=== PATIENT | female | born 1990 | race Two or more races ===

== ENCOUNTER 2025-06-06 20:39 | Inpatient (IN) | payer OTHER ==
[~2025-06-06] VITALS: Ht 167.6 cm; Wt 83.8 kg
--- NOTE | 2025-06-06 20:59 | ED.PDOC ---
HPI Comments 34 y.o female presents to the ED for a chief complaint of left sided chest/breast pain radiating to her left arm associated with SOB, lower extremity swelling, and a nonproductive cough x 1 day. Patient reports pain is constant with no alleviating factors. Patient ran out of her Lasix one week ago. Patient denies any nausea, vomiting, fever, chills, or back pain. Patient reports tobacco and marijuana use. 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 Family History Family History: Family hx of HTN Social History Smoker: Cigarettes Alcohol: Denies ETOH Use Drugs: Marijuana Lives In: Home Constitutional: denies: chills, diaphoresis, fatigue, fever, malaise, sweats, weakness, others EENTM: denies: blurred vision, double vision, ear bleeding, ear discharge, ear drainage, ear pain, ear ringing, eye pain, eye redness, hearing loss, mouth pain, mouth swelling, nasal discharge, nose bleeding, nose congestion, nose pain, photophobia, tearing, throat pain, throat swelling, voice changes, others Respiratory: reports: shortness of breath; denies: cough, hemoptysis, orthopnea, SOB at rest, SOB with excertion, stridor, wheezing, others Cardiovascular: reports: chest pain, left arm pain; denies: dizzy spells, diaphoresis, Dyspnea on exertion, edema, irregular heart beat, lightheadedness, palpitations, PND, syncope, others Gastrointestinal: denies: abdomen distended, abdominal pain, blood streaked bowels, constipated, diarrhea, dysphagia, difficulty swallowing, hematemesis, melena, nausea, poor appetite, poor fluid intake, rectal bleeding, rectal pain, vomiting, others Genitourinary: denies: abnormal vagina bleeding, burning, dyspareunia, dysuria, flank pain, frequency, hematuria, incontinence, pain, , vagina discharge, urgency, others Neurological: denies: dizziness, fainting, headache, left sided numbness, left sided weakness, numbness, paresthesia, pre-existing deficit, right sided numbness, right sided weakness, seizure, speech problems, tingling, tremors, weakness, others Musculoskeletal: reports: others (leg swelling ); denies: back pain, gout, joint pain, joint swelling, muscle pain, muscle stiffness, neck pain Integumetry: denies: bruises, change in color, change in hair/nails, dryness, laceration, lesions, lumps, rash, wounds, others Allergic/Immunocompromised: denies: Difficulty Healing, Frequent Infections, Hives, Itching, others Hematologic/Lymphatic: denies: anemia, blood clots, easy bleeding, easy bruising, swollen glands, others Endocrine: denies: excessive hunger, excessive sweating, excessive thirst, excessive urination, flushing, intolerance to cold, intolerance to heat, unexplained weight gain, unexplained weight loss, others Psychiatric: denies: anxiety, bipolar disorder, depression, hopeless, panic disorder, schizophrenia, sleepless, suicidal, others All Other Systems: Reviewed and Negative Physical Exam General Appearance: Moderate Distress HEENT: Normal ENT Inspection, Pharynx Normal, TMs Normal Neck: Full Range of Motion, Non-Tender, Normal, Normal Inspection Respiratory: Chest Non-Tender, Lungs Clear, No Accessory Muscle Use, Normal Breath Sounds, Respiratory Distress Cardiovascular: No Edema, No JVD, No Murmur, No Gallop, Normal Peripheral Pulses, Regular Rate/Rhythm Breast Exam: Deferred Gastrointestinal: No Organomegaly, Non Tender, No Pulsatile Mass, Normal Bowel Sounds, Soft Genitalia: Deferred Pelvic: Deferred Rectal: Deferred Extremities: No calf tenderness, Normal capillary refill, Pedal edema Musculoskeletal : Apperance: Normal Neurologic: Alert, shuttler car II-XII nml as Tested, Motor Weakness, Normal Affect, Normal Mood, No Sensory Deficits Cerebellar Function: Normal Reflexes: Normal Skin: Dry, Normal Color, Warm Lymphatic: No Adenopathy Was a procedure done? Was a procedure done?: No CP Differential Dx Differential Diagnosis: N/A Differential Diagnosis: Angina, Chest Wall Pain, Costochondritis, Myocardial Infarction, Pericarditis X-Ray, Labs, Meds, VS Vital Signs Date Time Temp Pulse Resp B/P (MAP) Pulse Ox O2 Delivery O2 Flow Rate FiO2 06/06/25 21:06 100.9 06/06/25 20:47 125 06/06/25 20:45 100.9 125 20 104/75 (85) 98 100.9 Lab Test 06/06/25 21:07 06/06/25 20:46 Range/Units Urine Color Pending Urine Clarity Pending Urine pH Pending Urine Specific [place] Pending Urine Protein Pending Urine Ketones Pending Urine Blood Pending Urine Nitrite Pending Urine Bilirubin Pending Urine Urobilinogen Pending Urine Leukocyte Esterase Pending Urine RBC Pending Urine Microscopic WBC Pending Urine Squamous Epithelial Cells Pending Urine Bacteria Pending Urine Glucose Pending White Blood Count 7.6 4.4-10.8 10^3/uL Red Blood Count 4.53 4.0-5.20 10^6/uL Hemoglobin 12.3 12.2-16.2 g/dL Hematocrit 36.5 36.0-46.0 % Mean Corpuscular Volume 80.6 80.0-100.0 fL Mean Corpuscular Hemoglobin 27.1 L 28.0-32.0 pg Mean Corpuscular Hemoglobin Concent 33.7 32.0-36.0 g/dL Red Cell Distribution Width 15.8 H 11.8-14.3 % Platelet Count 385 140-450 10^3/uL Mean Platelet Volume 7.8 6.9-10.8 fL Neutrophils (%) (Auto) 74.8 37.0-80.0 % Lymphocytes (%) (Auto) 14.9 10.0-50.0 % Monocytes (%) (Auto) 8.5 0.0-12.0 % Eosinophils (%) (Auto) 1.1 0.0-7.0 % Basophils (%) (Auto) 0.7 0.0-2.0 % Neutrophils # (Auto) 5.7 1.6-8.6 10 ^3/uL Lymphocytes # (Auto) 1.1 0.4-5.4 10 ^3/uL Monocytes # (Auto) 0.7 0-1.3 10 ^3/uL Eosinophils # (Auto) 0.1 0-0.8 10 ^3/uL Basophils # (Auto) 0.1 0-0.2 10 ^3/uL Nucleated Red Blood Cells 0.0 % D-Dimer, Quantitative 1.84 H 0.0-0.49 mg/L FEU Sodium Level 136 136-145 mmol/L Potassium Level 4.1 3.5-5.1 mmol/L Chloride Level 103 98-107 mmol/L Carbon Dioxide Level 24 20-31 mmol/L Anion Gap 9 5-15 Blood Urea Nitrogen 12 9-23 mg/dL Creatinine 0.95 0.550-1.02 mg/dL Glomerular Filtration Rate Calc 81 >90 mL/min BUN/Creatinine Ratio 12.6 10.0-20.0 Serum Glucose 98 74-106 mg/dL Calcium Level 9.6 8.7-10.4 mg/dL Troponin I High Sensitivity 6 </=34 ng/L B-Type Natriuretic Peptide 695.73 0-100 pg/mL Current Medications Medications (Trade) Dose Ordered Sig/Topher Route Start Time Stop Time Status Last Admin Acetaminophen (Tylenol Tablet Or Capsule) 650 mg ONCE ONCE PO 06/06/25 21:00 06/06/25 21:02 DC 06/06/25 21:06 The chest x-ray shows: No sign of any acute infiltrates or pneumothorax. There is some mild cardiomegaly but no sign of any CHF The BNP is elevated at 695.73 The D-dimer is 1.84 The patient's CBC is within normal limits The chemistry panel is within normal limits The patient was given acetaminophen 650 mg by mouth for a temperature of 100.9 We did order a CAT scan of the chest to rule out PE secondary to the fact that the D-dimer is elevated and the patient was complaining of shortness a breath as well as some palpitations The patient is being admitted at this time The patient will be signed out to Dr. Jean Images Reviewed?: Images reviewed and evaluated by me Time of 1ST Reevaluation: 21:30 Reevaluation 1ST: Unchanged Patient Education/Counseling: Diagnosis, Treatment, Prognosis Family Education/Counseling: No Family Present SEPSIS Sepsis Screen Physician Orders Electrocardigram (06/06/25 20:43) Electrocardigram (06/06/25 21:43) Electrocardigram (06/06/25 23:43) Troponin-I Hs (06/06/25 21:43) Troponin-I Hs (06/06/25 23:43) Heplock Iv (06/06/25 20:53) Chemistry Laboratory Technician (06/06/25 20:53) Blood Pressure (06/06/25 20:53) Pulse Oximetry (06/06/25 20:53) Chest Two Views Routine (06/06/25 20:53) Urinalysis (06/06/25 20:53) Ct Angio Chest Contrast (06/06/25 21:33) Vital Signs Date Time Temp Pulse Resp B/P (MAP) Pulse Ox O2 Delivery O2 Flow Rate FiO2 06/06/25 21:06 100.9 06/06/25 20:47 125 06/06/25 20:45 100.9 125 20 104/75 (85) 98 100.9 Laboratory Tests Test 06/06/25 20:46 White Blood Count 7.6 10^3/uL (4.4-10.8) Medications Medications Dose Ordered Sig/Topher Route Start Time Stop Time Status Last Admin Dose Admin Acetaminophen 650 mg ONCE ONCE PO 06/06/25 21:00 06/06/25 21:02 DC 06/06/25 21:06 Departure 1 Departure Time of Disposition: 21:38 Impression: Primary Impression: Acute dyspnea Additional Impressions: Elevated d-dimer Diastolic heart failure Qualified Codes: I50.33 - Acute on chronic diastolic (congestive) heart failure Disposition: 09 ADMITTED INPATIENT Admit to: Tele Condition: Fair Critical Care Note Critical Care Time?: Yes (45 min-critical care time only) Stability Stability form required: Yes Unstable for transfer: Telemetry monitoring (Telemetry monitoring required), ED Physician Assesment (Clinical assesment) Heart Score Heart Score: Heart Score Response (Comments) Value History Moderate Suspicious 1 EKG Repolarization Disturb 1 Age <45 0 Risk Factors >3 or Hx ASHD 2 Troponin Normal limit 0 Total 4 I personally scribed for NIKITA PEREZ MD ([email or web address]) on 06/06/25 at 20:59. E lectronically submitted by Emma Patel ([facility]). NIKITA PEREZ MD Jun 06, 2025 20:59
[2025-06-06 21:04] LABS: Hematocrit 36.5 % (36.0-46.0); Hemoglobin 12.3 g/dL (12.2-16.2); Mean Corpuscular Hemoglobin 27.1 pg (28.0-32.0); Mean Corpuscular Volume 80.6 fL (80.0-100.0); Nucleated Red Blood Cells % 0.0 %
[2025-06-06] MEDS: ACETAMINOPHEN 500 MG TAB or CAP PO ONE (21:06)
[2025-06-06 21:12] LABS: Chloride 103 mmol/L (98-107); Potassium 4.1 mmol/L (3.5-5.1)
[2025-06-06 21:13] LABS: Anion Gap 9 (5-15); Carbon Dioxide 24 mmol/L (20-31)
[2025-06-06 21:14] LABS: Calcium 9.6 mg/dL (8.7-10.4)
[2025-06-06 21:18] LABS: Sodium 136 mmol/L (136-145)
[2025-06-06 21:19] LABS: BUN/Creatinine Ratio 12.6 (10.0-20.0); Blood Urea Nitrogen 12 mg/dL (9-23); Glucose 98 mg/dL (74-106)
--- NOTE | 2025-06-06 21:32 | DVH ---
CHEST RADIOGRAPH Indication: CP Technique: Frontal and lateral view of the chest was obtained Comparison: None FINDINGS/IMPRESSION: There is enlargement of the cardiomediastinal silhouette with prominence of the perihilar spaces. The lungs are clear. No pleural effusion or pneumothorax. No acute osseous abnormality.
[2025-06-06 22:02] LABS: Urine Protein, UAD 1+ (Negative)
[2025-06-06] MEDS: IOHEXOL 300 MG/ML 100ML BOTTLE IJ ONE (22:17)
[2025-06-06] MEDS: FUROSEMIDE 40 MG/4 ML VIAL IV ONE (22:47)
--- NOTE | 2025-06-06 22:49 | DVH ---
CTA Chest with intravenous contrast INDICATION: sob/cp COMPARISON: None TECHNIQUE: Multidetector spiral CTA of the chest was performed of the chest with intravenous contrast . PULMONARY ANGIOGRAPHY PROTOCOL was utilized using a bolus-tracking technique centered on the main p ulmonary artery. Axial, coronal and sagittal multiplanar and MIP reformats were performed. Radiation Dose : 1. Chest: CTDI volume is 5.92 mGy. Dose-length product is 750.22 mGy*cm The dose indicators for CT are the volume Computed Tomography (CT) Dose Index (CTDIvol) and the Dose Length Product (DLP), and are measured in units of mGy and mGy-cm, respectively. These indicators are not patient dose, but values generated from the CT scanner acquisition factors. The report includes radiation exposure data for exposures received during this examination. Findings: Pulmonary artery: No pulmonary embolism. The main pulmonary artery measures 2.9 cm in the ascending thoracic aorta measures 2.6 cm. Lower neck: Normal thyroid. Lungs: No focal consolidation, pleural effusion or pneumothorax. Pleural-based nodular density within the right lower lobe measuring 1.3 cm (series 3, image 45). Partial collapse of the right middle lob e with associated atelectasis. Heart/Vascular Structures: The heart is enlarged and there is small to moderate pericardial effusion. Lymph Nodes: Diffuse confluent lymphadenopathy is noted throughout the mediastinum and bilateral mark r regions. Musculoskeletal: No acute osseous abnormality. Soft tissues: Normal. Upper abdomen: Limited portions of the upper abdomen are unremarkable status post cholecystectomy. IMPRESSION: 1. No pulmonary embolism. 2. Diffuse confluence mediastinal and bilateral hilar lymphadenopathy. 3. Cardiomegaly and small to moderate pericardial effusion. 4. Right lower lobe pleural-based pulmonary nodule and partial collapse of the right middle lobe with associated atelectasis.
[2025-06-06 22:52] VITALS: PULSE 106; O2SAT 98
[2025-06-06] MEDS: ACETAMINOPHEN 325 MG TAB PO ONE (23:53)
[2025-06-06] MEDS: SODIUM CHLORIDE 0.9% 1,800 ML IV ONE (23:53)
[2025-06-06] MEDS: VANCOMYCIN 1GM/200ML PM 200 ML IV ONE (23:53)
[2025-06-06] MEDS: cefTRIAXone 1GM/50ML D5W 50 ML IV ONE (23:59)
[2025-06-07] VITALS (14 sets, daily range): BP systolic 98–155; BP diastolic 47–73; PULSE 57–119; RESP 16–24; TEMP 97.8–99; O2SAT 94–100
[2025-06-07] MEDS ORDERED: ACETAMINOPHEN 325 MG TAB PO PRN (00:30)
--- NOTE | 2025-06-07 00:39 | DVHHP2 ---
History of Present Illness Reason for Visit: Shortness of breath History of Present Illness 34-year-old female presents for evaluation of shortness for breath. Patient reports a two day history of worsening shortness for breath with associated left-sided pressure-like chest pain with a nonproductive cough. No fever or chills. Patient reports running out of her Lasix a week ago. Past Medical History Acute on chronic respiratory failure Acute on chronic heart failure Hypertension Plan Admit the patient to Med surge to the hospitalist IV Lasix Resume home medications Echocardiogram pending Continue treatment per orders. Past Surgical History , cholecystectomy Family History Noncontributory Smoke: <1 pack per day ALCOHOL: occassional Drugs: Marijuana Review of Systems Review of Systems Review of systems are currently negative otherwise addressed in HPI. Allergies: Coded Allergies: NO KNOWN ALLERGIES (Unverified , 06/06/25) Exam Vital Signs Vital Signs Date Time Temp Pulse Resp B/P (MAP) Pulse Ox O2 Delivery O2 Flow Rate FiO2 06/06/25 23:35 98.7 107 16 110/73 (85) 99 98.7 06/06/25 22:52 Room Air* 0 21 Exam Gen: 34-year-old female in mild distress, obese Skin: Warm, dry, normal color and texture, no rash. HEENT: Normocephalic atraumatic, mucous membranes moist and pink. Neck: Cervical and supraclavicular nodes normal without enlargement, trachea is midline, thyroid gland is normal without masses. Pulmonary: Clear to auscultation and percussion bilaterally. Cardiac: Regular rate and rhythm. No murmur Abdomen: Soft, nontender, nondistended, bowel sounds present all 4 quadrants, no guarding, no rigidity, no organomegaly. Extremities: No cyanosis, clubbing, no edema Neuro: Cranial nerves II through XII grossly intact, normal affect and speech, no focal motor deficits. Labs/Xrays ORDERING PHYSICIAN: NIKITA PEREZ MD PROCEDURE(s): CXR2 - CHEST TWO VIEWS ROUTINE REASON: CP ORDER NUMBER(s): [id number], ACCESSION NUMBER(s): [id number] CHEST RADIOGRAPH Indication: CP Technique: Frontal and lateral view of the chest was obtained Comparison: None FINDINGS/IMPRESSION: There is enlargement of the cardiomediastinal silhouette with prominence of the perihilar spaces. The lungs are clear. No pleural effusion or pneumothorax. No acute osseous abnormality. RING PHYSICIAN: NIKITA PEREZ MD PROCEDURE(s): CTACH - CT ANGIO CHEST CONTRAST REASON: sob/cp ORDER NUMBER(s): [id number], ACCESSION NUMBER(s): [id number] CTA Chest with intravenous contrast INDICATION: sob/cp COMPARISON: None TECHNIQUE: Multidetector spiral CTA of the chest was performed of the chest with intravenous contrast. PULMONARY ANGIOGRAPHY PROTOCOL was utilized using a bolus- tracking technique centered on the main pulmonary artery. Axial, coronal and sag ittal multiplanar and MIP reformats were performed. Radiation Dose : 1. Chest: CTDI volume is 5.92 mGy. Dose-length product is 750.22 mGy*cm The dose indicators for CT are the volume Computed Tomography (CT) Dose Index (CTDIvol) and the Dose Length Product (DLP), and are measured in units of mGy and mGy-cm, respectively. These indicators are not patient dose, but values generated from the CT scanner acquisition factors. The report includes radiation exposure data for exposures received during this examination. Findings: Pulmonary artery: No pulmonary embolism. The main pulmonary artery measures 2.9 cm in the ascending thoracic aorta measures 2.6 cm. Lower neck: Normal thyroid. Lungs: No focal consolidation, pleural effusion or pneumothorax. Pleural-based nodular density within the right lower lobe measuring 1.3 cm (series 3, image 45). Partial collapse of the right middle lobe with associated atelectasis. Heart/Vascular Structures: The heart is enlarged and there is small to moderate pericardial effusion. Lymph Nodes: Diffuse confluent lymphadenopathy is noted throughout the mediastinum and bilateral hilar regions. Musculoskeletal: No acute osseous abnormality. Soft tissues: Normal. Upper abdomen: Limited portions of the upper abdomen are unremarkable status post cholecystectomy. IMPRESSION: 1. No pulmonary embolism. 2. Diffuse confluence mediastinal and bilateral hilar lymphadenopathy. 3. Cardiomegaly and small to moderate pericardial effusion. 4. Right lower lobe pleural-based pulmonary nodule and partial collapse of the right middle lobe with associated atelectasis. Labs Test 06/06/25 23:48 06/06/25 21:07 06/06/25 20:46 Range/Units Troponin I High Sensitivity 8 </=34 ng/L Urine Color Yellow Yellow Urine Clarity Turbid H Clear Urine pH 5.5 5.0-9.0 Urine Specific [place] 1.037 H 1.001-1.035 Urine Protein 1+ H Negative Urine Ketones Trace Negative Urine Blood Negative Negative /uL Urine Nitrite Negative Negative Urine Bilirubin Negative Negative Urine Urobilinogen 12 H Negative mg/dL Urine Leukocyte Esterase Negative Negative /uL Urine RBC 3 0 - 4 /hpf Urine Microscopic WBC 3 0-5 /HPF Urine Squamous Epithelial Cells Few <5 /hpf Urine Bacteria None seen None Seen /hpf Urine Hyaline Casts Few 0 - 2 /lpf Urine Mucus Few None Seen Urine Glucose Normal Normal mg/dL White Blood Count 7.6 4.4-10.8 10^3/uL Red Blood Count 4.53 4.0-5.20 10^6/uL Hemoglobin 12.3 12.2-16.2 g/dL Hematocrit 36.5 36.0-46.0 % Mean Corpuscular Volume 80.6 80.0-100.0 fL Mean Corpuscular Hemoglobin 27.1 L 28.0-32.0 pg Mean Corpuscular Hemoglobin Concent 33.7 32.0-36.0 g/dL Red Cell Distribution Width 15.8 H 11.8-14.3 % Platelet Count 385 140-450 10^3/uL Mean Platelet Volume 7.8 6.9-10.8 fL Neutrophils (%) (Auto) 74.8 37.0-80.0 % Lymphocytes (%) (Auto) 14.9 10.0-50.0 % Monocytes (%) (Auto) 8.5 0.0-12.0 % Eosinophils (%) (Auto) 1.1 0.0-7.0 % Basophils (%) (Auto) 0.7 0.0-2.0 % Neutrophils # (Auto) 5.7 1.6-8.6 10 ^3/uL Lymphocytes # (Auto) 1.1 0.4-5.4 10 ^3/uL Monocytes # (Auto) 0.7 0-1.3 10 ^3/uL Eosinophils # (Auto) 0.1 0-0.8 10 ^3/uL Basophils # (Auto) 0.1 0-0.2 10 ^3/uL Nucleated Red Blood Cells 0.0 % D-Dimer, Quantitative 1.84 H 0.0-0.49 mg/L FEU Sodium Level 136 136-145 mmol/L Potassium Level 4.1 3.5-5.1 mmol/L Chloride Level 103 98-107 mmol/L Carbon Dioxide Level 24 20-31 mmol/L Anion Gap 9 5-15 Blood Urea Nitrogen 12 9-23 mg/dL Creatinine 0.95 0.550-1.02 mg/dL Glomerular Filtration Rate Calc 81 >90 mL/min BUN/Creatinine Ratio 12.6 10.0-20.0 Serum Glucose 98 74-106 mg/dL Calcium Level 9.6 8.7-10.4 mg/dL B-Type Natriuretic Peptide 695.73 0-100 pg/mL SEPSIS Sepsis Screen Date sepsis recognized/suspect: Jun 06, 2025 Time Sepsis recognized/suspect: 2253 Recent Procedure: No On Antibiotic Therapy: No Respiratory Rate >20: No Heart Rate >90: Yes Temp<36 C (96.8 F) or >38.3 C: No SBP <90 or MAP <65 mmHG: No New Acute Mental Status Change: No Is the patient on CPAP, BIPAP,: No Physician Orders Electrocardigram (06/06/25 20:43) Electrocardigram (06/06/25 21:43) Electrocardigram (06/06/25 23:43) Heplock Iv (06/06/25 20:53) State Fire Marshal (06/06/25 20:53) Blood Pressure (06/06/25 20:53) Pulse Oximetry (06/06/25 20:53) Chest Two Views Routine (06/06/25 20:53) Ct Angio Chest Contrast (06/06/25 21:33) Blood Culture (06/06/25 23:47) Albuterol Medneb (Ventolin Medneb) (06/07/25 00:30) Furosemide Injection (Lasix Injection) (06/07/25 06:00) Carvedilol Tablet (Coreg Tablet) (06/07/25 10:00) Spironolactone (Aldactone) (06/07/25 10:00) Empagliflozin (Jardiance) (06/07/25 10:00) Lisinopril Tablet (Zestril Tablet) (06/07/25 10:00) Aspirin Tablet (06/07/25 10:00) Basic Metabolic Panel (06/08/25 04:00) Admit (06/07/25 00:29) Ondansetron Hcl (Zofran) (06/07/25 00:30) Cardiac Diet-2gna,Lofat,Lochol (06/07/25 Breakfast) Echo 2d Mode Cardiac Dop (06/07/25 00:29) Condition: Stable (06/07/25 00:29) Acetaminophen Tablet (Tylenol Tablet) (06/07/25 00:30) Bedrest With Bathroom Privileg (06/07/25 00:29) Vital Signs Date Time Temp Pulse Resp B/P (MAP) Pulse Ox O2 Delivery O2 Flow Rate FiO2 06/06/25 23:35 98.7 107 16 110/73 (85) 99 98.7 06/06/25 22:52 106 98 Room Air* 0 21 06/06/25 22:47 105/65 06/06/25 22:38 99.0 109 16 105/65 (78) 95 99.0 06/06/25 21:45 117 06/06/25 21:06 100.9 06/06/25 20:47 125 06/06/25 20:45 100.9 125 20 104/75 (85) 98 100.9 Laboratory Tests Test 06/06/25 20:46 White Blood Count 7.6 10^3/uL (4.4-10.8) Medications Medications Dose Ordered Sig/Topher Route Start Time Stop Time Status Last Admin Dose Admin Acetaminophen 650 mg ONCE ONCE PO 06/06/25 21:00 06/06/25 21:02 DC 06/06/25 21:06 650 MG Acetaminophen 1,000 mg ONCE ONCE PO 06/07/25 00:00 06/07/25 00:01 DC 06/06/25 23:53 1,000 MG Aspirin 162 mg ONCE ONCE PO 06/06/25 21:00 06/06/25 21:01 DC 06/06/25 22:47 162 MG Furosemide 40 mg ONCE ONCE IV 06/06/25 21:00 06/06/25 21:01 DC 06/06/25 22:47 40 MG Assessment/Plan Assessment/Plan Acute on chronic respiratory failure Acute on chronic heart failure Hypertension Plan Admit the patient to Med surge to the hospitalist JUDSON Smith Resume home medications Echocardiogram pending Continue treatment per orders. Plan discussed with: Patient My Orders Orders - SAUL HERRERA Procedure Category Date Status Time Albuterol Medneb PHA 06/07/25 Verified (Ventolin Medneb) 00:30 Furosemide Injection PHA 06/07/25 Verified (Lasix Injection) 06:00 Carvedilol Tablet PHA 06/07/25 Verified (Coreg Tablet) 10:00 Spironolactone PHA 06/07/25 Verified (Aldactone) 10:00 Empagliflozin PHA 06/07/25 Verified (Jardiance) 10:00 Lisinopril Tablet PHA 06/07/25 Verified (Zestril Tablet) 10:00 Aspirin Tablet PHA 06/07/25 Verified 10:00 Basic Metabolic Panel LAB 06/08/25 Verified 04:00 Admit ADMIT 06/07/25 Verified 00:29 Ondansetron Hcl PHA 06/07/25 Verified (Zofran) 00:30 Cardiac DIET 06/07/25 Verified Diet-2gna,Lofat,Lochol Breakfast Echo 2d Mode Cardiac US 06/07/25 Verified DOP 00:29 Condition: Stable VÍCTOR 06/07/25 Verified 00:29 Acetaminophen Tablet PHA 06/07/25 Verified (Tylenol Tablet) 00:30 Bedrest With Bathroom VÍCTOR 06/07/25 Verified Privileg 00:29 Date of Service: Jun 07, 2025 Billing Provider: SAUL HERRERA Common Visit Codes: [id number] INP/OBS CARE (HIGH) SAUL HERRERA Jun 07, 2025 00:39
[2025-06-07] MEDS: ALBUTEROL SULF 2.5 MG/0.5ML(0.5%) NEB SOLN NEB PRN (04:21)
--- NOTE | 2025-06-07 04:34 | ECG ---
[facility] Test Date: 2025-06-06 Test Time: 20:47:21 Pat Name: CHECO YU Department: ER Room: 0251 B Gender: F Seamer: RUBINA : 1990 Requested By: EMERGENCY EMERGENCY Order Number: [id number] Reading MD: Dontrell Heck Measurements Intervals [place] Rate: 125 P: 43 VT: 153 QRS: 45 QRSD: 78 T: 174 QT: 312 QTc: 450 Interpretive Statements Sinus tachycardia Probable left atrial enlargement Nonspecific T abnormalities, diffuse leads Electronically Signed On 06-07-2025 19:33:03 PDT by Dontrell Heck Please click the below link to view image of tracing.
--- NOTE | 2025-06-07 04:34 | ECG ---
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
[2025-06-07] MEDS: FUROSEMIDE 20 MG/2 ML VIAL IV SCH (05:56)
[2025-06-07] MEDS: CARVEDILOL 3.125 MG TAB PO SCH (09:38)
[2025-06-07] MEDS: LISINOPRIL 5 MG TAB PO SCH (09:39)
[2025-06-07] MEDS: EMPAGLIFLOZIN 10 MG TAB PO SCH (09:42)
[2025-06-07] MEDS: cefTRIAXone 1GM/50ML D5W 50 ML IV ONE (09:43)
[2025-06-07] MEDS: AZITHROMYCIN 500MG/ 250ML 250 ML IV SCH (09:43)
[2025-06-07] MEDS: SPIRONOLACTONE 25 MG TAB PO SCH (09:44)
[2025-06-07 10:47] LABS: Hematocrit 34.4 % (36.0-46.0); Hemoglobin 11.6 g/dL (12.2-16.2); Mean Corpuscular Hemoglobin 27.0 pg (28.0-32.0); Mean Corpuscular Volume 79.8 fL (80.0-100.0); Nucleated Red Blood Cells % 0.1 %
[2025-06-07 11:00] LABS: Alanine Aminotransferase 25 U/L (7-40); Albumin 4.2 g/dL (3.2-4.8); Alkaline Phosphatase 74 U/L (46-116); Anion Gap 10 (5-15); BUN/Creatinine Ratio 12.9 (10.0-20.0); Blood Urea Nitrogen 11 mg/dL (9-23); Calcium 10.0 mg/dL (8.7-10.4); Carbon Dioxide 28 mmol/L (20-31); Glucose 90 mg/dL (74-106); Magnesium 1.9 mg/dL (1.6-2.6)
[2025-06-07 11:01] LABS: Bilirubin, Total 0.9 mg/dL (0.2-1.0)
[2025-06-07 11:04] LABS: Chloride 99 mmol/L (98-107); Potassium 3.5 mmol/L (3.5-5.1); Sodium 137 mmol/L (136-145); Total Protein 8.2 g/dL (5.7-8.2)
[2025-06-07 11:12] LABS: Hepatitis B Surface Antigen Negative (Negative)
[2025-06-07 11:29] LABS: Hepatitis C Antibody Negative (Negative)
[2025-06-07 13:49] LABS: COVID19 ANTIGEN SOFIA FIA NEGATIVE (NEGATIVE)
--- NOTE | 2025-06-07 14:29 | DVHPNRES ---
Progress Note Date Seen: Jun 07, 2025 Resident Creating Document: GLADYS PEREZ RESIDENT Medical Necessity Reason Pt with a Central, PICC or Fol: No Subjective Review of Systems 34-year-old female presents for evaluation of shortness of breath. Patient reports a 2 day history of worsening of shortness of breath associated with left-sided chest pain which is shooting in nature,7/10 intensity, acute and intermittent in nature. It is associated with a productive cough which is usually yellow or clear. Reports having coughed for the last 1 month and that has increased her shortness of breath. She reports no fever but she says she felt chills, nausea, diaphoresis. She also reports running out of her Lasix a week ago for congestive heart failure. PMH: Chronic heart failure, hypertension PSH: , cholecystectomy Family history: Reviewed and noncontributory to the management of this case social history: Patient reports smoking 1 pack per day from her teens but since the last few months she has only been having 1 pack the entire month. She also reports drinking alcohol occasionally, and having taken crystal meth smoking before. She reports she does not take it anymore but does smoke marijuana occasionally. Patient lives with her friend and is renting a place. ROS: patient seen by me and examined today at the bedside. Overnight events were reviewed. Patient reports that she is still having shortness of breath but feels better than yesterday. She complains of pain in her legs all over bilaterally for which she reports Tylenol is not helping. She has had this pain for many months now. Rest of the ROS is negative. Objective vital signs Vital Sign Date Time Temp Pulse Resp B/P (MAP) Pulse Ox O2 Delivery O2 Flow Rate FiO2 06/07/25 10:11 110 18 100 06/07/25 10:06 Room Air* 0 21 06/07/25 09:39 98/55 06/07/25 09:00 98.7 98.7 Total Intake and Output 06/06/25 06/06/25 06/07/25 15:00 23:00 07:00 Intake Total 100 ml Balance 100 ml medications Current Medications Medications Dose Ordered Sig/Topher Route Start Time Stop Time Status Last Admin Dose Admin Albuterol 2.5 mg Q6HPRN PRN NEB 06/07/25 00:30 06/07/25 10:05 2.5 MG Furosemide 20 mg BIDD IV 7/14/25 06:00 Carvedilol 3.125 mg Q12HR PO 06/07/25 10:00 Spironolactone 25 mg DAILY PO 06/07/25 10:00 Empaglifozin 10 mg DAILY PO 06/07/25 10:00 Lisinopril 10 mg DAILY PO 06/07/25 10:00 Aspirin 81 mg DAILY PO 06/07/25 10:00 Ondansetron HCl 4 mg Q4HP PRN IV 06/07/25 00:30 Acetaminophen 650 mg Q6HP PRN PO 06/07/25 00:30 Ceftriaxone Sodium 50 ml @ 100 mls/hr DAILY@09 IV 06/08/25 09:00 Azithromycin 250 ml @ 125 mls/hr DAILY IV 06/07/25 10:00 Examination Pt is lying on bed General Appearance: Alert, Oriented X3, Cooperative, Not in acute distress HEENT: Atraumatic, Mucous membranes moist/pink Respiratory: rhonchi, crackles heard in b/l moyer Abdominal: Active bowel sounds, Soft, no distention, no tenderness Extremities: No edema, Normal pulses, No tenderness/swelling Skin: No Significant rash, except past surgical scars Neuro: Normal speech, sensorimotor deficits none Psych/Mental Status: Mental status NL, Mood NL Nurse was there as beauty counselor during examination laboratory and microbiology Laboratory Tests 06/07/25 10:13 Test 06/07/25 10:13 Range/Units Serum Glucose 90 74-106 mg/dL Labs and/or images reviewed: Labs reviewed by me, Image(s) reviewed by me Problem List/Assessment/Plan Problem List/Assessment/Plan # shortness of breaths likely from CHF versus pneumonia # chest pain rule out ACS # Acute on chronic sys vs marcus CHF -telemetry -EKG showed sinus tach in but no significant ST changes -ordered a chest pain protocol with morphine, nitroglycerin -aspirin and Lipitor -Echocardiography pending results -Lasix begin -GDM T with Aldactone, Coreg and Jardiance -Urine toxicology done, pending # ? Acute Gram positive / negative bacterial pneumonia - chest x-ray shows: There is enlargement of the cardio mediastinal silhouette with prominence of the perihilar spaces -CT angio shows: No pulmonary embolism. Diffuse confluence mediastinal and bilateral hilar lymphadenopathy. -azithromycin, ceftriaxone started -COVID and influenza tests sent, negative -Respiratory culture sent # Right lower lobe pleural-based pulmonary nodule (1.3 cm) # partial collapse of the right middle lobe with associated atelectasis. #small to moderate pericardial effusion., monitor for now -As seen in CT scan -Pulmonology consult # ?Peripheral neuropathy -Pain medications GI prophylaxis: Not indicated DVT prophylaxis: Lovenox Diet: low-sodium diet Goals of care discussed with the patient for more than 27 minutes: Full code status Case discussed with Dr. Torres patient and nurse. Plan discussed with: Patient, Other (rn) My Orders My Orders Orders - GLADYS PEREZ Procedure Category Date Status Time Enoxaparin Sodium PHA 06/08/25 Transmitted (Lovenox) 10:00 Date of Service: Jun 07, 2025 Billing Provider: BRANDI TORRES MD Common Visit Codes: [id number] INP/OBS CARE(HIGH) GLADYS PEREZ Jun 07, 2025 14:29 DENIS FOSTER RESIDENT Jun 07, 2025 14:42 BRANDI TORRES MD Jun 07, 2025 19:53
[2025-06-07] MEDS: HYDROcodone-ACET 5/325MG TAB PO PRN (17:55)
--- NOTE | 2025-06-07 18:16 | DVHINCON2 ---
Date of service: Jun 07, 2025 Referring Physician Shortness of breath Reason for Consultation Shortness of breath History of Present Illness History Source: Patient Exam Limitations: No limitations HPI Patient is a 34-year old lady with a history of nicotine dependency who presented with shortness of breath, dry cough and swelling of the lower extremities. Was seen in the emergency room where CTA of the chest demonstrated diffuse bilateral hilar lymphadenopathy, right lower lobe nodules and partial collapse of the right middle lobe and she was admitted for further workup. Pulmonology was consulted to assist in management. Past Medical History Cardiac: No pertinent Hx Pulmonary: No pertinent Hx Central Nervous System: No pertinent Hx GI: No pertinent Hx Hemotology/Oncology: No pertinent Hx Hepatobiliary: No pertinent Hx Psychiatric: No pertinent Hx Musculoskeletal: No pertinent Hx Rheumotologic: No pertinent Hx Infectious Disease: No peritnent Hx ENT: No pertinent Hx Renal/: No pertinent Hx Endocrine: No pertinent Hx Dermatology: No pertinent Hx Past Surgical History: No pertinent Hx Family History: Hypertension Patient Family History: Arthritis G8 MOTHER G8 FATHER Hypertension G8 FATHER Smoker: Positive Alocohol: None Drugs: None Lives with: With family Domestic Violence: Neg Review of Systems Constitutional: No symptom reported Ears, Nose, & Throat: No symptom reported Eyes: No symptom reported Pulmonary/Respiratory: Dyspnea, Cough Cardiovascular: No symptom reported Gastrointestinal: No symptom reported Genitourinary: No symptom reported Musculoskeletal: No symptom reported Skin: No symptom reported Psychiatric: No symptom reported Endocrine: No symptom reported Hemotologic/Lymphatic: No symptom reported H&P Exam Vital Signs Vital Signs Date Time Temp Pulse Resp B/P (MAP) Pulse Ox O2 Delivery O2 Flow Rate FiO2 06/07/25 16:00 98.7 119 20 104/50 (68) 96 98.7 06/07/25 10:06 Room Air* 0 21 General Appeara: Well developed, Well nourished, Normal Appearance Head Exam: Normal inspection Neck Exam: Normal inspection, Non-tender, Normal alignment Eye Exam: bilateral eye Normal inspection, bilateral eye PERRL, bilateral eye EOMI Ear Exam: bilateral ear Auricle normal, bilateral ear Canal normal, bilateral ear TM normal Nasal Exam: Normal inspection Mouth: Normal Inspection Pulmonary/Respiratory: Decreased breath sounds Cardiovascular/Chest: Normal inspection Peripheral Pulses: 4+ Radial (R), 4+ Radial (L), 4+ Brachial (R), 4+ Brachial (L) Abdominal Exam: Normal bowel sounds Labs/Xrays Labs Test 06/07/25 12:15 06/07/25 10:13 06/06/25 23:48 06/06/25 21:07 Range/Units Influenza Type A Antigen Negative Negative Influenza Type B Antigen Negative Negative SARS-CoV-2 Antigen (Rapid) Negative NEGATIVE White Blood Count 6.8 4.4-10.8 10^3/uL Red Blood Count 4.31 4.0-5.20 10^6/uL Hemoglobin 11.6 L 12.2-16.2 g/dL Hematocrit 34.4 L 36.0-46.0 % Mean Corpuscular Volume 79.8 L 80.0-100.0 fL Mean Corpuscular Hemoglobin 27.0 L 28.0-32.0 pg Mean Corpuscular Hemoglobin Concent 33.8 32.0-36.0 g/dL Red Cell Distribution Width 15.5 H 11.8-14.3 % Platelet Count 323 140-450 10^3/uL Mean Platelet Volume 7.8 6.9-10.8 fL Neutrophils (%) (Auto) 78.2 37.0-80.0 % Lymphocytes (%) (Auto) 10.7 10.0-50.0 % Monocytes (%) (Auto) 8.7 0.0-12.0 % Eosinophils (%) (Auto) 1.8 0.0-7.0 % Basophils (%) (Auto) 0.6 0.0-2.0 % Neutrophils # (Auto) 5.3 1.6-8.6 10 ^3/uL Lymphocytes # (Auto) 0.7 0.4-5.4 10 ^3/uL Monocytes # (Auto) 0.6 0-1.3 10 ^3/uL Eosinophils # (Auto) 0.1 0-0.8 10 ^3/uL Basophils # (Auto) 0 0-0.2 10 ^3/uL Nucleated Red Blood Cells 0.1 % Sodium Level 137 136-145 mmol/L Potassium Level 3.5 3.5-5.1 mmol/L Chloride Level 99 98-107 mmol/L Carbon Dioxide Level 28 20-31 mmol/L Anion Gap 10 5-15 Blood Urea Nitrogen 11 9-23 mg/dL Creatinine 0.85 0.550-1.02 mg/dL Glomerular Filtration Rate Calc 92 >90 mL/min BUN/Creatinine Ratio 12.9 10.0-20.0 Serum Glucose 90 74-106 mg/dL Lactic Acid Level 1.5 0.4-2.0 mmol/L Calcium Level 10.0 8.7-10.4 mg/dL Magnesium Level 1.9 1.6-2.6 mg/dL Total Bilirubin 0.9 0.2-1.0 mg/dL Aspartate Amino Transferase (AST) 31 13-40 U/L Alanine Aminotransferase (ALT) 25 7-40 U/L Alkaline Phosphatase 74 46-116 U/L Total Protein 8.2 5.7-8.2 g/dL Albumin 4.2 3.2-4.8 g/dL Hepatitis B Surface Antigen Negative Negative Hepatitis C Antibody Negative Negative Troponin I High Sensitivity 8 </=34 ng/L Urine Color Yellow Yellow Urine Clarity Turbid H Clear Urine pH 5.5 5.0-9.0 Urine Specific [place]field 1.037 H 1.001-1.035 Urine Protein 1+ H Negative Urine Ketones Trace Negative Urine Blood Negative Negative /uL Urine Nitrite Negative Negative Urine Bilirubin Negative Negative Urine Urobilinogen 12 H Negative mg/dL Urine Leukocyte Esterase Negative Negative /uL Urine RBC 3 0 - 4 /hpf Urine Microscopic WBC 3 0-5 /HPF Urine Squamous Epithelial Cells Few <5 /hpf Urine Bacteria None seen None Seen /hpf Urine Hyaline Casts Few 0 - 2 /lpf Urine Mucus Few None Seen Urine Glucose Normal Normal mg/dL Test 06/06/25 20:46 Range/Units D-Dimer, Quantitative 1.84 H 0.0-0.49 mg/L FEU B-Type Natriuretic Peptide 695.73 0-100 pg/mL Assessment/Plan Plan Impression Bilateral hilar lymphadenopathy Cough- nonspecific ? Sarcoidosis Chest pain Patient seen and examined Events Low oxygen requirements On room air Vital signs stable Labs and imaging reviewed CT of the chest shows: IMPRESSION: 1. No pulmonary embolism. 2. Diffuse confluence mediastinal and bilateral hilar lymphadenopathy. 3. Cardiomegaly and small to moderate pericardial effusion. 4. Right lower lobe pleural-based pulmonary nodule and partial collapse of the right middle lobe with associated atelectasis. Management Supplemental oxygen as needed Titrate to maintain sats 90% or above Incentive spirometry Antibiotics Bronchodilators Diurese Monitor renal function Monitor electrolytes Supplement as needed Obtain serum ESR, CRP and BERNADETTE level May require PET/CT scan as outpatient Recommend follow up in office DVT prophylaxis Plan discussed with: Patient CARLOS DELA CRUZ MD Jun 07, 2025 18:16
--- NOTE | 2025-06-07 20:07 | DVHSR ---
APPROVED REPORT EXAM: Two-dimensional and M-mode echocardiogram with Doppler and color Doppler. Blood Pressure: 111/64 mmHg INDICATION EF RISK FACTORS Height: 5'6", Weight: 190 DIMENSIONS LVDd6.4 (3.8-5.7cm)LA (2D)4.8 (1.9-4.0cm)Aortic Root3.7 (2.0-3.7cm) LVDs6.0 (2.5-4.0cm)LA (MM) (1.9-4.0cm)Aortic Cusp Exc1.8 (1.5-2.0cm) EF (%) 15.0 (55-70%)Rt. Atrium4.7 (1.9-4.0cm)Asc. Aorta cm IVSd1.1 (0.7-1.1cm)RV (D) (1.8-2.4cm) PWd1.3 (0.7-1.1cm) Mitral Valve MitralMitral Stenosis E/A ratio0.02D MVAcm2 Aortic Valve Aortic ValveAortic Stenosis V10.72m/Jennifer Mean GR.5mmHg V21.54m/Jennifer Peak GR.10mmHg LVOT Diameter2.1 (1.8-2.4cm)Doppler AVA1.62cm2 Pulmonic Valve V20.93m/s Tricuspid Valve TR Velocity2.73m/s [id number] Conclusion REMARKABLY DILATED ALL CARDIAC CHAMBERS LV EF IS ONLY 15% MODERATELY SEVERE MR MILD POSTERIOR PERICARDIAL EFFUSION NORMAL VALVES STUDY CONSISTENT WITH END STAGE DILATED CARDIOMYOPATHY
[2025-06-08] VITALS (12 sets, daily range): BP systolic 94–132; BP diastolic 56–77; PULSE 96–125; RESP 18–20; TEMP 96.9–100; O2SAT 95–100
[2025-06-08 06:38] LABS: Hematocrit 36.4 % (36.0-46.0); Hemoglobin 12.4 g/dL (12.2-16.2); Mean Corpuscular Hemoglobin 27.3 pg (28.0-32.0); Mean Corpuscular Volume 79.9 fL (80.0-100.0); Nucleated Red Blood Cells % 0.0 %
[2025-06-08 06:52] LABS: Alanine Aminotransferase 22 U/L (7-40); Albumin 4.5 g/dL (3.2-4.8); Alkaline Phosphatase 82 U/L (46-116); Anion Gap 10 (5-15); BUN/Creatinine Ratio 12.4 (10.0-20.0); Blood Urea Nitrogen 12 mg/dL (9-23); Carbon Dioxide 26 mmol/L (20-31); Chloride 98 mmol/L (98-107); Glucose 102 mg/dL (74-106)
[2025-06-08 06:53] LABS: Bilirubin, Total 1.0 mg/dL (0.2-1.0)
[2025-06-08 06:54] LABS: Calcium 10.5 mg/dL (8.7-10.4); Potassium 3.3 mmol/L (3.5-5.1); Sodium 134 mmol/L (136-145); Total Protein 8.7 g/dL (5.7-8.2)
[2025-06-08] MEDS: cefTRIAXone 1GM/50ML D5W 50 ML IV SCH (08:48)
[2025-06-08] MEDS: ENOXAPARIN SOD 40 MG/0.4 ML SYRINGE SC SCH (08:50)
[2025-06-08] MEDS: POTASSIUM EFFERVESENT TAB 25 MEQ PO ONE (10:28)
[2025-06-08] MEDS: ONDANSETRON HCL 4 MG/2 ML VIAL IV PRN (12:07)
--- NOTE | 2025-06-08 14:21 | DVHPNRES ---
Progress Note Date Seen: Jun 08, 2025 Resident Creating Document: GLADYS PEREZ RESIDENT Medical Necessity Reason Pt with a Central, PICC or Fol: No Subjective Review of Systems 34-year-old female presents for evaluation of shortness of breath. Patient reports a 2 day history of worsening of shortness of breath associated with left-sided chest pain which is shooting in nature,7/10 intensity, acute and intermittent in nature. It is associated with a productive cough which is usually yellow or clear. Reports having coughed for the last 1 month and that has increased her shortness of breath. She reports no fever but she says she felt chills, nausea, diaphoresis. She also reports running out of her Lasix a week ago for congestive heart failure. PMH: Chronic heart failure, hypertension PSH: , cholecystectomy Family history: Reviewed and noncontributory to the management of this case Social history: Patient reports smoking 1 pack per day from her teens but since the last few months she has only been having 1 pack the entire month. She also reports drinking alcohol occasionally, and having taken crystal meth smoking before. She reports she does not take it anymore but does smoke marijuana occasionally. Patient lives with her friend and is renting a place. ROS: Patient was seen by me and examined today at the bedside. Overnight events were reviewed. Patient reports that she is still coughing but her chest pain has decreased. She had refused meds yesterday but is ready to start today. Rest of the ROS is negative Objective vital signs Vital Sign Date Time Temp Pulse Resp B/P (MAP) Pulse Ox O2 Delivery O2 Flow Rate FiO2 06/08/25 13:00 98.6 116 18 105/76 (86) 96 98.6 06/08/25 10:00 Room Air 0.0 06/08/25 10:00 21 Total Intake and Output 06/07/25 06/07/25 06/08/25 15:00 23:00 07:00 Intake Total 900 ml 200 ml Balance 900 ml 200 ml medications Current Medications Medications Dose Ordered Sig/Topher Route Start Time Stop Time Status Last Admin Dose Admin Albuterol 2.5 mg Q6HPRN PRN NEB 06/07/25 00:30 06/07/25 10:05 2.5 MG Furosemide 20 mg BIDD IV 06/07/25 06:00 06/08/25 05:46 20 MG Spironolactone 25 mg DAILY PO 06/07/25 10:00 06/08/25 08:52 25 MG Empaglifozin 10 mg DAILY PO 06/07/25 10:00 06/08/25 08:52 10 MG Lisinopril 10 mg DAILY PO 06/07/25 10:00 06/08/25 08:53 10 MG Aspirin 81 mg DAILY PO 06/07/25 10:00 06/08/25 08:52 81 MG Ondansetron HCl 4 mg Q4HP PRN IV 06/07/25 00:30 06/08/25 12:07 4 MG Acetaminophen 650 mg Q6HP PRN PO 06/07/25 00:30 Ceftriaxone Sodium 50 ml @ 100 mls/hr DAILY@09 IV 06/08/25 09:00 06/08/25 08:48 100 MLS/HR Azithromycin 250 ml @ 125 mls/hr DAILY IV 06/07/25 10:00 06/08/25 08:53 125 MLS/HR Enoxaparin Sodium 40 mg DAILY SC 06/08/25 10:00 06/08/25 08:50 40 MG Acetaminophen/ Hydrocodone Bitart 1 tab Q4HPRN PRN PO 06/07/25 17:45 06/08/25 04:28 1 TAB Carvedilol 6.25 mg Q12HR PO 06/08/25 22:00 Examination Pt is lying on bed General Appearance: Alert, Oriented X3, Cooperative, Severe distress due to pain HEENT: Atraumatic, Mucous membranes moist/pink Respiratory: Rhonchi, crackles heard in bilateral lung moyer Cardiovascular: Regular rate, Normal S1, Normal S2, No murmurs Abdominal: No distention or organomegaly, bowel sounds heard in all 4 quadrants Extremities: No edema, Normal pulses, tenderness and mild swelling in bilateral limb Skin: No Significant rash, except past surgical scars Neuro: Normal speech, sensorimotor deficits none Psych/Mental Status: Mental status NL, Mood NL Nurse was there as concrete pipe making machine operator during examination laboratory and microbiology Laboratory Tests 06/08/25 05:56 Test 06/08/25 05:56 Range/Units Serum Glucose 102 74-106 mg/dL Microbiology Date/Time Source Procedure Growth Status 06/07/25 18:27 Sputum Gram Stain Pending Resulted 06/07/25 18:27 Sputum Respiratory Culture - Preliminary Resulted 06/06/25 23:48 Blood Blood Culture - Preliminary Resulted Labs and/or images reviewed: Labs reviewed by me, Image(s) reviewed by me Problem List/Assessment/Plan Problem List/Assessment/Plan #Shortness of breaths likely from CHF versus pneumonia # chest pain ruled out ACS # Acute on chronic sys CHF(HFrEF) with EF 15% # Hx of methamphetamine abuse # ? Drug induced cardiomyopathy -telemetry -EKG showed sinus tach in but no significant ST changes -ordered a chest pain protocol with morphine, nitroglycerin -aspirin and Lipitor -Echocardiography: LV EF is only 15% with moderate to severe MR,mild posterior pericardial effusion, end-stage dilated cardiomyopathy. -Lasix begin -GDM T with Aldactone, Coreg and Jardiance -carvedilol dose change from 3.125 mg to 6.25 mg -Urine toxicology done, pending # Gram-positive bacteremia # ? Acute Gram positive / negative bacterial pneumonia -Chest x-ray shows: There is enlargement of the cardio mediastinal silhouette with prominence of the perihilar spaces -CT angio shows: No pulmonary embolism. Diffuse confluence mediastinal and bilateral hilar lymphadenopathy. -azithromycin, ceftriaxone started -COVID and influenza tests sent, negative -Respiratory culture sent -blood culture 1 came positive and the other negative, repeat culture sent -MRSA test # ?Sarcoidosis # ? Erythyma nodosum -Pain medications -LACIE panel -RF -DVT scan, pending # Hypokalemia - Repleting - Monitor lab # Right lower lobe pleural-based pulmonary nodule (1.3 cm) # partial collapse of the right middle lobe with associated atelectasis. #small to moderate pericardial effusion., monitor for now -As seen in CT scan -Pulmonology consult done, suggested- Supplemental oxygen as needed, Titrate to maintain sats 90% or above. Incentive spirometry. Obtain serum ESR, CRP and BERNADETTE level and that patient may require PET/CT scan as outpatient. GI prophylaxis: Not indicated DVT prophylaxis: Lovenox Diet: low-sodium diet Goals of care discussed with the patient for more than 27 minutes: Full code status Case discussed with Dr. Torres patient and nurse. Plan discussed with: Patient, Other (rn) My Orders My Orders Orders - GLADYS PEREZ Procedure Category Date Status Time Enoxaparin Sodium PHA 06/08/25 In Process (Lovenox) 10:00 Carvedilol Tablet PHA 06/08/25 In Process (Coreg Tablet) 22:00 Mrsa Screen MIRTA 06/08/25 Uncollected 13:46 Blood Culture MIRTA 06/08/25 Uncollected 13:46 Lacie; Direct LAB 06/08/25 Logged 13:46 Rheumatoid Arthritis LAB 06/08/25 Logged Factor 13:46 Date of Service: Jun 08, 2025 Billing Provider: BRANDI TORRES MD Common Visit Codes: [id number] INP/OBS CARE(HIGH) GLADYS PEREZ RESIDENT Jun 08, 2025 14:21 DENIS FOSTER RESIDENT Jun 08, 2025 14:53 BRANDI TORRES MD Jun 08, 2025 17:46
[2025-06-08 16:26] LABS: Urine Protein, UAD 1+ (Negative)
--- NOTE | 2025-06-08 17:18 | DVH ---
Bilateral lower extremity venous duplex Clinical History: leg tenderness Comparison: None Technique: Duplex Doppler evaluation of the deep venous systems of both lower extremities from the common femora l veins to the popliteal veins including color Doppler and spectral/pulsed waveform analysis was perf ormed. Findings: RIGHT SIDE: The common femoral vein demonstrates appropriate compressibility and waveform variability. There is compressibility/patency of the great saphenous vein at the proximal thigh. The femoral vein demonstrates appropriate compressibility and waveform variability. The deep femoral vein demonstrates appropriate compressibility and waveform variability. The popliteal vein demonstrates appropriate compressibility and waveform variability. There is normal compressibility at the tibioperoneal trunk. LEFT SIDE: The common femoral vein demonstrates appropriate compressibility and waveform variability. There is compressibility/patency of the great saphenous vein at the proximal thigh. The femoral vein demonstrates appropriate compressibility and waveform variability. The deep femoral vein demonstrates appropriate compressibility and waveform variability. The popliteal vein demonstrates appropriate compressibility and waveform variability. There is normal compressibility at the tibioperoneal trunk. Impression: 1. No right or left femoropopliteal venous thrombosis.
--- NOTE | 2025-06-08 17:27 | DVHPN2 ---
Progress Note - Dictate Date Seen: Jun 08, 2025 Medical Necessity Reason Pt with a Central, PICC or Fol: No vital signs Vital Sign Date Time Temp Pulse Resp B/P (MAP) Pulse Ox O2 Delivery O2 Flow Rate FiO2 06/08/25 13:00 98.6 116 18 105/76 (86) 96 98.6 06/08/25 10:00 Room Air 0.0 06/08/25 10:00 21 Total Intake and Output 06/07/25 06/07/25 06/08/25 15:00 23:00 07:00 Intake Total 900 ml 200 ml Balance 900 ml 200 ml medications Current Medications Medications Dose Ordered Sig/Topher Route Start Time Stop Time Status Last Admin Dose Admin Albuterol 2.5 mg Q6HPRN PRN NEB 06/07/25 00:30 06/07/25 10:05 2.5 MG Furosemide 20 mg BIDD IV 06/07/25 06:00 06/08/25 05:46 20 MG Spironolactone 25 mg DAILY PO 06/07/25 10:00 06/08/25 08:52 25 MG Empaglifozin 10 mg DAILY PO 06/07/25 10:00 06/08/25 08:52 10 MG Lisinopril 10 mg DAILY PO 06/07/25 10:00 06/08/25 08:53 10 MG Aspirin 81 mg DAILY PO 06/07/25 10:00 06/08/25 08:52 81 MG Ondansetron HCl 4 mg Q4HP PRN IV 06/07/25 00:30 06/08/25 12:07 4 MG Acetaminophen 650 mg Q6HP PRN PO 06/07/25 00:30 Ceftriaxone Sodium 50 ml @ 100 mls/hr DAILY@09 IV 06/08/25 09:00 06/08/25 08:48 100 MLS/HR Azithromycin 250 ml @ 125 mls/hr DAILY IV 06/07/25 10:00 06/08/25 08:53 125 MLS/HR Enoxaparin Sodium 40 mg DAILY SC 06/08/25 10:00 06/08/25 08:50 40 MG Acetaminophen/ Hydrocodone Bitart 1 tab Q4HPRN PRN PO 06/07/25 17:45 06/08/25 04:28 1 TAB Carvedilol 6.25 mg Q12HR PO 06/08/25 22:00 laboratory and microbiology Laboratory Tests 06/08/25 05:56 Test 06/08/25 05:56 Range/Units Serum Glucose 102 74-106 mg/dL Assessment/Plan Impression Bilateral hilar lymphadenopathy Cough- nonspecific ? Sarcoidosis Chest pain Patient seen and examined Events Low oxygen requirements On room air No acute events Imaging reviewed CT of the chest shows: IMPRESSION: 1. No pulmonary embolism. 2. Diffuse confluence mediastinal and bilateral hilar lymphadenopathy. 3. Cardiomegaly and small to moderate pericardial effusion. 4. Right lower lobe pleural-based pulmonary nodule and partial collapse of the right middle lobe with associated atelectasis. Labs reviewed ESR and CRP elevated BERNADETTE level pending Management Supplemental oxygen as needed Titrate to maintain sats 90% or above Incentive spirometry Continue antibiotics F/u cultures Bronchodilators Diurese Monitor renal function Monitor electrolytes Supplement as needed Consult IR for biopsy of hilar lymphadenopathy Recommend follow up in office DVT prophylaxis Plan discussed with: Patient CARLOS DELA CRUZ MD Jun 08, 2025 17:27
[2025-06-08] MEDS: CARVEDILOL 3.125 MG TAB PO SCH (22:00)
[2025-06-09] VITALS (8 sets, daily range): BP systolic 90–109; BP diastolic 52–72; PULSE 87–106; RESP 15–19; TEMP 97.5–98.3; O2SAT 96–99
[2025-06-09] MEDS: PIPERACILLIN-TAZOB 3.375GM 100 ML IV ONE (09:00)
[2025-06-09] MEDS: POTASSIUM CHL 20 Meq TABLET PO ONE (09:45)
--- NOTE | 2025-06-09 10:12 | DVH ---
US SOFT TISSUE NECK, HISTORY: lymphadenopathy. TECHNICAL DATA: Transverse and longitudinal sonographic images were obtained of the right neck. COMPARISON: None FINDINGS: IMPRESSION: 2.2 x 1.2 x 1.4 cm abnormal right supraclavicular lymph node.
[2025-06-09] MEDS: DOXYCYCLINE 100MG/100ML 100 ML IV SCH (11:56)
[2025-06-09 12:04] LABS: Hematocrit 34.1 % (36.0-46.0); Hemoglobin 11.5 g/dL (12.2-16.2); Mean Corpuscular Hemoglobin 27.3 pg (28.0-32.0); Mean Corpuscular Volume 80.6 fL (80.0-100.0); Nucleated Red Blood Cells % 0.1 %
[2025-06-09 12:28] LABS: INR 1.08 (0.9-1.15); Partial Thromboplastin Time 31.6 SEC (24.5-34.5); Prothrombin Time 11.4 sec (9.3-11.8)
[2025-06-09 13:07] LABS: Anti-Nuclear Antibody Direct Negative (Negative)
--- NOTE | 2025-06-09 13:38 | DVH ---
US US GUIDANCE FOR NEEDLE PLACEME, HISTORY: LYMPHNODE BIOPSY PROCEDURE: Informed consent was obtained. Limited ultrasound of the right supraclavicular lymph node was obtained. The overlying skin was prepped with chlorhexidine which was allowed to dry and draped i n the usual sterile fashion. Time out was performed. The skin and soft tissue were infiltrated with 1 % lidocaine. Under real-time ultrasound guidance, 4 biopsy specimens were obtained using [employer] 18 gauge core biopsy needle. Samples placed into formalin and RPMI. Post biopsy scan was performed. No i mmediate complication was noted. FINDINGS: Limited intraprocedural ultrasound demonstrates biopsy needle within right supraclavicular lymph node. IMPRESSION: Successful ultrasound biopsy of the right supraclavicular lymph node. Pathology results pending.
--- NOTE | 2025-06-09 15:55 | DVHPNRES ---
Progress Note Date Seen: Jun 09, 2025 Resident Creating Document: GLADYS PEREZ RESIDENT Medical Necessity Reason Pt with a Central, PICC or Fol: No Subjective Review of Systems A 34-year-old female presents for evaluation of shortness of breath. Patient reports a 2 day history of worsening of shortness of breath associated with left-sided chest pain which is shooting in nature,7/10 intensity, acute and intermittent in nature. It is associated with a productive cough which is usually yellow or clear. Reports having coughed for the last 1 month and that has increased her shortness of breath. She reports no fever but she says she felt chills, nausea, diaphoresis. She also reports running out of her Lasix a week ago for congestive heart failure. PMH: Chronic heart failure, hypertension PSH: , cholecystectomy Family history: Reviewed and noncontributory to the management of this case Social history: Patient reports smoking 1 pack per day from her teens but since the last few months she has only been having 1 pack the entire month. She also reports drinking alcohol occasionally, and having taken crystal meth smoking before. She reports she does not take it anymore but does smoke marijuana occasionally. Patient lives with her friend and is renting a place. ROS: Patient was seen by me and examined today at the bedside. Overnight events were reviewed. Patient reports that she is still coughing and having mild fever in night but her chest pain has decreased. She reports that the leg pain has been still there. Rest of the ROS is negative. Objective vital signs Vital Sign Date Time Temp Pulse Resp B/P (MAP) Pulse Ox O2 Delivery O2 Flow Rate FiO2 06/09/25 12:54 97.6 87 16 90/52 (65) 97 97.6 06/09/25 10:00 Room Air 06/09/25 10:00 0 21 Total Intake and Output 06/08/25 06/08/25 06/09/25 15:00 23:00 07:00 Intake Total 300 ml 1035 ml 700 ml Output Total 475 ml Balance 300 ml 1035 ml 225 ml medications Current Medications Medications Dose Ordered Sig/Topher Route Start Time Stop Time Status Last Admin Dose Admin Albuterol 2.5 mg Q6HPRN PRN NEB 06/07/25 00:30 06/07/25 10:05 2.5 MG Furosemide 20 mg BIDD IV 06/07/25 06:00 06/08/25 17:51 20 MG Spironolactone 25 mg DAILY PO 06/07/25 10:00 06/09/25 10:06 25 MG Empaglifozin 10 mg DAILY PO 06/07/25 10:00 06/09/25 09:45 10 MG Lisinopril 10 mg DAILY PO 06/07/25 10:00 06/08/25 08:53 10 MG Aspirin 81 mg DAILY PO 06/07/25 10:00 06/09/25 09:45 81 MG Ondansetron HCl 4 mg Q4HP PRN IV 06/07/25 00:30 06/08/25 12:07 4 MG Acetaminophen 650 mg Q6HP PRN PO 06/07/25 00:30 Enoxaparin Sodium 40 mg DAILY SC 06/08/25 10:00 06/09/25 09:45 40 MG Acetaminophen/ Hydrocodone Bitart 1 tab Q4HPRN PRN PO 06/07/25 17:45 06/08/25 20:59 1 TAB Carvedilol 6.25 mg Q12HR PO 06/08/25 22:00 06/09/25 09:46 6.25 MG Doxycycline Hyclate 100 ml @ 50 mls/hr Q12HR IV 06/09/25 10:00 06/09/25 11:56 50 MLS/HR Piperacillin Sod/ Tazobactam Sod 100 ml @ 25 mls/hr Q8HR IV 06/09/25 14:00 Examination Examination Pt is lying on bed General Appearance: Alert, Oriented X3, Cooperative, Severe distress due to pain HEENT: Atraumatic, Mucous membranes moist/pink Respiratory: Rhonchi, crackles heard in bilateral lung moyer Cardiovascular: Regular rate, Normal S1, Normal S2, No murmurs Abdominal: No distention or organomegaly, bowel sounds heard in all 4 quadrants Extremities: No edema, Normal pulses, tenderness and mild swelling in bilateral limbs Skin: No Significant rash; linear hyperpigmented scar that spans from right hip to left hip secondary to tummy tuck surgery Neuro: Normal speech, sensorimotor deficits none Psych/Mental Status: Mental status NL, Mood NL Nurse was there as computer forensic examiner during examination laboratory and microbiology Laboratory Tests 06/09/25 11:40 Test 06/09/25 15:30 Range/Units Serum Glucose Pending Microbiology Date/Time Source Procedure Growth Status 06/08/25 16:45 Nose MRSA Screen - Final Complete 06/07/25 18:27 Sputum Gram Stain - Final Resulted 06/07/25 18:27 Sputum Respiratory Culture - Preliminary Resulted 06/06/25 23:48 Blood Blood Culture - Final Staphylococcus epidermidis Complete Labs and/or images reviewed: Labs reviewed by me, Image(s) reviewed by me Problem List/Assessment/Plan Problem List/Assessment/Plan #Shortness of breaths likely from CHF versus pneumonia # Chest pain ruled out ACS # Acute on chronic sys CHF(HFrEF) with EF 15% # Hx of methamphetamine abuse # ? Drug induced cardiomyopathy -telemetry -EKG showed sinus tach in but no significant ST changes -ordered a chest pain protocol with morphine, nitroglycerin -aspirin and Lipitor -Echocardiography: LV EF is only 15% with moderate to severe MR, mild posterior pericardial effusion, end-stage dilated cardiomyopathy. -Lasix begin -GDM T with Aldactone, Coreg and Jardiance -carvedilol dose change from 3.125 mg to 6.25 mg -Urine toxicology done, pending # Gram-positive bacteremia # ? Acute Gram positive / negative bacterial pneumonia -Chest x-ray shows: There is enlargement of the cardio mediastinal silhouette with prominence of the perihilar spaces, -CT angio shows: No pulmonary embolism. Diffuse confluence mediastinal and bilateral hilar lymphadenopathy. -azithromycin, ceftriaxone stopped, started on doxycycline and P present -COVID and influenza tests sent, negative -Respiratory culture sent -blood culture 1 came positive and the other negative, repeat culture pending -MRSA test # ?Sarcoidosis causing shortness of breath # ? Erythema nodosum -Pain medications -TYLER panel - negative -RF -12.9 normal levels -DVT scan, results showed: No right or left femoropopliteal venous thrombosis. -ultrasound biopsy of 2.2 x 1.2 x 1.4 cm abnormal right supraclavicular lymph node, Pathology results pending -out patient follow up with pcp recommended # Hypokalemia - Repleting - Monitor lab # Right lower lobe pleural-based pulmonary nodule (1.3 cm) # partial collapse of the right middle lobe with associated atelectasis. # small to moderate pericardial effusion, monitor for now -As seen in CT scan -Pulmonology consult done, suggested- Supplemental oxygen as needed, Titrate to maintain sats 90% or above. Incentive spirometry. Obtain serum ESR, CRP and BERNADETTE level and that patient may require PET/CT scan as outpatient. -ESR elevated (90), CRP elevated (5.17), BERNADETTE enzymes pending # Polysubstance (tobacco and marijuana) use disorder -Counseled on marijuana and tobacco use cessation for 22 minutes, including 14 minutes for tobacco use cessation GI prophylaxis: Not indicated DVT prophylaxis: Lovenox 40mg s.c daily Diet: low-sodium diet Goals of care discussed with the patient for 20 minutes: Full code status Case discussed with Dr. Kent patient and nurse. Plan discussed with: Patient, Other (rn) My Orders My Orders Orders - GLADYS PEREZ RESIDENT Procedure Category Date Status Time Us Guidance For US 06/09/25 Resulted Needle Placeme 10:17 Addendum Addendum Addendum I was physically present for the espinosa portions of the service provided to patient by THE RESIDENT. I have reviewed the documentation, discussed the case with resident and agree with the resident's documentation except as noted. Also the patient's clinical case was discussed with the patient's nurse. This medical document was created using an electronic medical record system with computerized dictation system. Although this document has been carefully reviewed, there might still be some phonetic and typographical errors. These areas are purely typographical due to imperfections of the software programs, and do not reflect any compromise in the patient's medical care. Late signature. Date of Service: Jun 09, 2025 Billing Provider: WILMAN KENT MD Common Visit Codes: [id number] INP/OBS CARE(HIGH) Secondary Visit Codes: [id number] CHNG SMOKING >10MIN (Counseled on marijuana and tobacco use cessation for 22 minutes, including 14 minutes for tobacco use cessation), [id number] CARE PLAN 30 MINUTES (20 minutes) GLADYS PEREZ RESIDENT Jun 09, 2025 15:55 DENIS FOSTER RESIDENT Jun 09, 2025 18:33 WILMAN KENT MD Jun 11, 2025 04:46
[2025-06-09 16:07] LABS: Alanine Aminotransferase 27 U/L (7-40); Albumin 4.2 g/dL (3.2-4.8); Alkaline Phosphatase 84 U/L (46-116); Anion Gap 7 (5-15); BUN/Creatinine Ratio 14.2 (10.0-20.0); Blood Urea Nitrogen 15 mg/dL (9-23); Calcium 10.2 mg/dL (8.7-10.4); Carbon Dioxide 30 mmol/L (20-31); Glucose 94 mg/dL (74-106); Potassium 4.2 mmol/L (3.5-5.1); Total Protein 8.0 g/dL (5.7-8.2)
[2025-06-09 16:08] LABS: Bilirubin, Total 0.7 mg/dL (0.2-1.0)
[2025-06-09 16:10] LABS: Chloride 97 mmol/L (98-107); Sodium 134 mmol/L (136-145)
[2025-06-09] MEDS: PIPERACILLIN-TAZOB 3.375GM 100 ML IV SCH (17:06)
--- NOTE | 2025-06-09 21:13 | DVHPN2 ---
Progress Note - Dictate Date Seen: Jun 09, 2025 Medical Necessity Reason Pt with a Central, PICC or Fol: No vital signs Vital Sign Date Time Temp Pulse Resp B/P (MAP) Pulse Ox O2 Delivery O2 Flow Rate FiO2 06/09/25 19:18 98 Room Air* 0 21 06/09/25 18:00 109/72 06/09/25 16:00 97.9 95 15 97.9 Total Intake and Output 06/08/25 06/08/25 06/09/25 15:00 23:00 07:00 Intake Total 300 ml 1035 ml 700 ml Output Total 475 ml Balance 300 ml 1035 ml 225 ml medications Current Medications Medications Dose Ordered Sig/Topher Route Start Time Stop Time Status Last Admin Dose Admin Albuterol 2.5 mg Q6HPRN PRN NEB 06/07/25 00:30 06/07/25 10:05 2.5 MG Furosemide 20 mg BIDD IV 06/07/25 06:00 06/08/25 17:51 20 MG Spironolactone 25 mg DAILY PO 06/07/25 10:00 06/09/25 10:06 25 MG Empaglifozin 10 mg DAILY PO 06/07/25 10:00 06/09/25 09:45 10 MG Lisinopril 10 mg DAILY PO 06/07/25 10:00 06/08/25 08:53 10 MG Aspirin 81 mg DAILY PO 06/07/25 10:00 06/09/25 09:45 81 MG Ondansetron HCl 4 mg Q4HP PRN IV 06/07/25 00:30 06/08/25 12:07 4 MG Acetaminophen 650 mg Q6HP PRN PO 06/07/25 00:30 Enoxaparin Sodium 40 mg DAILY SC 06/08/25 10:00 06/09/25 09:45 40 MG Acetaminophen/ Hydrocodone Bitart 1 tab Q4HPRN PRN PO 06/07/25 17:45 06/09/25 19:08 1 TAB Carvedilol 6.25 mg Q12HR PO 06/08/25 22:00 06/09/25 09:46 6.25 MG Doxycycline Hyclate 100 ml @ 50 mls/hr Q12HR IV 06/09/25 10:00 06/09/25 11:56 50 MLS/HR Piperacillin Sod/ Tazobactam Sod 100 ml @ 25 mls/hr Q8HR IV 06/09/25 14:00 06/09/25 17:06 25 MLS/HR laboratory and microbiology Laboratory Tests 06/09/25 15:30 06/09/25 11:40 Test 06/09/25 15:30 Range/Units Serum Glucose 94 74-106 mg/dL Assessment/Plan Impression Bilateral hilar lymphadenopathy Cough- nonspecific ? Sarcoidosis Chest pain Patient seen and examined Events Low oxygen requirements On room air No acute events Imaging reviewed CT of the chest shows: IMPRESSION: 1. No pulmonary embolism. 2. Diffuse confluence mediastinal and bilateral hilar lymphadenopathy. 3. Cardiomegaly and small to moderate pericardial effusion. 4. Right lower lobe pleural-based pulmonary nodule and partial collapse of the right middle lobe with associated atelectasis. Labs reviewed ESR and CRP elevated BERNADETTE level pending Management pt c/o skin nodules on thigh--potential skin bx for dx may represent sarcoid nodules from pulm standpoint pt can be dc'd follow up with pulm clinic Plan discussed with: Patient CARLOS DELA CRUZ MD Jun 09, 2025 21:13
[2025-06-10] VITALS (13 sets, daily range): BP systolic 101–112; BP diastolic 60–77; PULSE 48–99; RESP 14–20; TEMP 96.5–98; O2SAT 96–100
[2025-06-10] MEDS: DOXYCYCLINE 100 MG TAB/CAP PO SCH (09:12)
[2025-06-10 10:57] LABS: Hematocrit 34.5 % (36.0-46.0); Hemoglobin 11.8 g/dL (12.2-16.2); Mean Corpuscular Hemoglobin 27.6 pg (28.0-32.0); Mean Corpuscular Volume 80.4 fL (80.0-100.0); Nucleated Red Blood Cells % 0.1 %
[2025-06-10 11:21] LABS: Alanine Aminotransferase 19 U/L (7-40); Albumin 4.3 g/dL (3.2-4.8); Alkaline Phosphatase 81 U/L (46-116); Anion Gap 8 (5-15); BUN/Creatinine Ratio 12.6 (10.0-20.0); Bilirubin, Total 0.5 mg/dL (0.2-1.0); Blood Urea Nitrogen 12 mg/dL (9-23); Calcium 9.8 mg/dL (8.7-10.4); Carbon Dioxide 27 mmol/L (20-31); Chloride 100 mmol/L (98-107); Glucose 97 mg/dL (74-106); Potassium 3.9 mmol/L (3.5-5.1); Sodium 135 mmol/L (136-145); Total Protein 8.3 g/dL (5.7-8.2)
--- NOTE | 2025-06-10 12:39 | DVHPNRES ---
Progress Note Date Seen: Jun 10, 2025 Resident Creating Document: GLADYS PEREZ RESIDENT Medical Necessity Reason Pt with a Central, PICC or Fol: No Subjective Review of Systems A 34-year-old female presents for evaluation of shortness of breath. Patient reports a 2 day history of worsening of shortness of breath associated with left-sided chest pain which is shooting in nature,7/10 intensity, acute and intermittent in nature. It is associated with a productive cough which is usually yellow or clear. Reports having coughed for the last 1 month and that has increased her shortness of breath. She reports no fever but she says she felt chills, nausea, diaphoresis. She also reports running out of her Lasix a week ago for congestive heart failure. PMH: Chronic heart failure, hypertension PSH: , cholecystectomy Family history: Reviewed and noncontributory to the management of this case Social history: Patient reports smoking 1 pack per day from her teens but since the last few months she has only been having 1 pack the entire month. She also reports drinking alcohol occasionally, and having taken crystal meth smoking before. She reports she does not take it anymore but does smoke marijuana occasionally. Patient lives with her friend and is renting a place. ROS: Today the patient was seen and examined by me in the bedside. Patient reports she still has pain in her legs that is 9/10 in intensity, reports that her shortness of breath and chest pain has gotten better. She is still coughing. Yesterday evening she refused to take the medication as she complains that once the antibiotic was administered she had itching in her arm and pain. Rest of the ROS is negative Objective vital signs Vital Sign Date Time Temp Pulse Resp B/P (MAP) Pulse Ox O2 Delivery O2 Flow Rate FiO2 06/10/25 10:00 98 Room Air 06/10/25 10:00 0 21 06/10/25 09:00 97.1 98 16 112/77 (89) 97.1 Total Intake and Output 06/09/25 06/09/25 06/10/25 15:00 23:00 07:00 Intake Total 200 ml 1145 ml 100 ml Balance 200 ml 1145 ml 100 ml medications Current Medications Medications Dose Ordered Sig/Topher Route Start Time Stop Time Status Last Admin Dose Admin Albuterol 2.5 mg Q6HPRN PRN NEB 06/07/25 00:30 06/10/25 03:22 2.5 MG Furosemide 20 mg BIDD IV 06/07/25 06:00 06/08/25 17:51 20 MG Spironolactone 25 mg DAILY PO 06/07/25 10:00 06/10/25 09:12 25 MG Empaglifozin 10 mg DAILY PO 06/07/25 10:00 06/10/25 09:13 10 MG Lisinopril 10 mg DAILY PO 06/07/25 10:00 06/08/25 08:53 10 MG Aspirin 81 mg DAILY PO 06/07/25 10:00 06/10/25 09:12 81 MG Ondansetron HCl 4 mg Q4HP PRN IV 06/07/25 00:30 06/08/25 12:07 4 MG Acetaminophen 650 mg Q6HP PRN PO 06/07/25 00:30 Enoxaparin Sodium 40 mg DAILY SC 06/08/25 10:00 06/10/25 09:16 40 MG Acetaminophen/ Hydrocodone Bitart 1 tab Q4HPRN PRN PO 06/07/25 17:45 06/10/25 09:11 1 TAB Carvedilol 6.25 mg Q12HR PO 06/08/25 22:00 06/09/25 09:46 6.25 MG Piperacillin Sod/ Tazobactam Sod 100 ml @ 25 mls/hr Q8HR IV 06/09/25 14:00 06/09/25 17:06 25 MLS/HR Doxycycline Monohydrate 100 mg Q12HR PO 06/10/25 10:00 06/10/25 09:12 100 MG Examination General Appearance: Alert, Oriented X3, Cooperative HEENT: Atraumatic, Mucous membranes moist/pink Respiratory: Presence of Rhonchi, crackles heard in bilateral lung moyer Cardiovascular: Regular rate, Normal S1, Normal S2, No murmurs Abdominal: soft, active bowel sounds present, No distention or organomegaly Extremities: No edema, Normal pulses, tenderness and swelling in bilateral limbs, soft swelling in the right rao which is tender then the right swelling Skin: No Significant rash; linear hyperpigmented scar that spans from right hip to left hip secondary to tummy tuck surgery Neuro: Normal speech, sensorimotor deficits none Psych/Mental Status: Mental status NL, Mood NL Nurse was there as driver engineer during examination laboratory and microbiology Laboratory Tests 06/10/25 10:25 Test 06/10/25 10:25 Range/Units Serum Glucose 97 74-106 mg/dL Microbiology Date/Time Source Procedure Growth Status 06/08/25 16:45 Nose MRSA Screen - Final Complete 06/07/25 18:27 Sputum Gram Stain - Final Complete 06/07/25 18:27 Sputum Respiratory Culture - Final Complete 06/06/25 23:48 Blood Blood Culture - Final Staphylococcus epidermidis Complete Labs and/or images reviewed: Labs reviewed by me, Image(s) reviewed by me Problem List/Assessment/Plan Problem List/Assessment/Plan #Shortness of breaths likely from CHF versus pneumonia # chest pain ruled out ACS # Acute on chronic sys CHF(HFrEF) with EF 15% # Hx of methamphetamine abuse # ? Drug induced cardiomyopathy -telemetry -EKG showed sinus tach in but no significant ST changes -ordered a chest pain protocol with morphine, nitroglycerin -aspirin and Lipitor -Echocardiography: LV EF is only 15% with moderate to severe MR, mild posterior pericardial effusion, end-stage dilated cardiomyopathy. -Lasix begin -GDM T with Aldactone, Coreg and Jardiance -carvedilol dose change from 3.125 mg to 6.25 mg -Urine toxicology done, pending # Gram-positive bacteremia # ? Acute Gram positive / negative bacterial pneumonia -Chest x-ray shows: There is enlargement of the cardio mediastinal silhouette with prominence of the perihilar spaces, -CT angio shows: No pulmonary embolism. Diffuse confluence mediastinal and bilateral hilar lymphadenopathy. - azithromycin, ceftriaxone stopped, started on doxycycline po and Zosyn -COVID and influenza tests sent, negative -Respiratory culture sent -blood culture 1 came positive and the other negative, repeat culture ,prelim negative -MRSA test # ?Sarcoidosis causing shortness of breath # ? 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 -ultrasound biopsy of 2.2 x 1.2 x 1.4 cm abnormal right supraclavicular lymph node, Pathology results pending -out patient follow up with pcp recommended # Hypokalemia - Repleting - Monitor lab # Right lower lobe pleural-based pulmonary nodule (1.3 cm) # partial collapse of the right middle lobe with associated atelectasis. # small to moderate pericardial effusion, monitor for now -As seen in CT scan -Pulmonology consult done, suggested- Supplemental oxygen as needed, Titrate to maintain sats 90% or above. Incentive spirometry. Obtain serum ESR, CRP and BERNADETTE level and that patient may require PET/CT scan as outpatient. -ESR elevated (90), CRP elevated (5.17), BERNADETTE enzymes pending # Polysubstance (tobacco and marijuana) use disorder -Counseled on marijuana and tobacco use cessation GI prophylaxis: Not indicated DVT prophylaxis: Lovenox 40mg s.c daily Diet: low-sodium diet Case discussed with Dr. Kent patient and nurse. Plan discussed with: Patient, Other (RN) My Orders My Orders Orders - GLADYS PEREZ RESIDENT Procedure Category Date Status Time Drug Screen LAB 06/09/25 Logged 19:08 Addendum Addendum Addendum I was physically present for the espinosa portions of the service provided to patient by THE RESIDENT. I have reviewed the documentation, discussed the case with resident and agree with the resident's documentation except as noted. Also the patient's clinical case was discussed with the patient's nurse. This medical document was created using an electronic medical record system with computerized dictation system. Although this document has been carefully reviewed, there might still be some phonetic and typographical errors. These areas are purely typographical due to imperfections of the software programs, and do not reflect any compromise in the patient's medical care. Late signature. Date of Service: Jun 10, 2025 Billing Provider: WILMAN KENT MD Common Visit Codes: [id number] INP/OBS CARE(HIGH) GLADYS PEREZ Jun 10, 2025 12:39 DENIS FOSTER RESIDENT Jun 10, 2025 16:42 WILMAN KENT MD Jun 11, 2025 04:48
--- NOTE | 2025-06-10 17:01 | DVHPN2 ---
Progress Note - Dictate Date Seen: Jun 10, 2025 Medical Necessity Reason Pt with a Central, PICC or Fol: No vital signs Vital Sign Date Time Temp Pulse Resp B/P (MAP) Pulse Ox O2 Delivery O2 Flow Rate FiO2 06/10/25 13:00 98.0 94 18 106/75 (85) 98 98.0 06/10/25 10:00 Room Air 06/10/25 10:00 0 21 Total Intake and Output 06/09/25 06/09/25 06/10/25 15:00 23:00 07:00 Intake Total 200 ml 1145 ml 100 ml Balance 200 ml 1145 ml 100 ml medications Current Medications Medications Dose Ordered Sig/Topher Route Start Time Stop Time Status Last Admin Dose Admin Albuterol 2.5 mg Q6HPRN PRN NEB 06/07/25 00:30 06/10/25 03:22 2.5 MG Furosemide 20 mg BIDD IV 06/07/25 06:00 06/08/25 17:51 20 MG Spironolactone 25 mg DAILY PO 06/07/25 10:00 06/10/25 09:12 25 MG Empaglifozin 10 mg DAILY PO 06/07/25 10:00 06/10/25 09:13 10 MG Lisinopril 10 mg DAILY PO 06/07/25 10:00 06/08/25 08:53 10 MG Aspirin 81 mg DAILY PO 06/07/25 10:00 06/10/25 09:12 81 MG Ondansetron HCl 4 mg Q4HP PRN IV 06/07/25 00:30 06/08/25 12:07 4 MG Acetaminophen 650 mg Q6HP PRN PO 06/07/25 00:30 Enoxaparin Sodium 40 mg DAILY SC 06/08/25 10:00 06/10/25 09:16 40 MG Acetaminophen/ Hydrocodone Bitart 1 tab Q4HPRN PRN PO 06/07/25 17:45 06/10/25 09:11 1 TAB Carvedilol 6.25 mg Q12HR PO 06/08/25 22:00 06/09/25 09:46 6.25 MG Piperacillin Sod/ Tazobactam Sod 100 ml @ 25 mls/hr Q8HR IV 06/09/25 14:00 06/09/25 17:06 25 MLS/HR Doxycycline Monohydrate 100 mg Q12HR PO 06/10/25 10:00 06/10/25 09:12 100 MG laboratory and microbiology Laboratory Tests 06/10/25 10:25 Test 06/10/25 10:25 Range/Units Serum Glucose 97 74-106 mg/dL Assessment/Plan Impression Bilateral hilar lymphadenopathy Cough- nonspecific ? Sarcoidosis Chest pain Patient seen and examined Events Low oxygen requirements On room air No distress patient isolated ? S/p biopsy of mediastinal lymphadenopathy by IR Results pending Labs and imaging reviewed Management supplemental oxygen as needed pt c/o skin nodules on thigh--potential skin bx for dx may represent sarcoid nodules from pulm standpoint pt can be dc'd isolation unnecessary okay to de-isolate follow up with pulm clinic Plan discussed with: Patient CARLOS DELA CRUZ MD Jun 10, 2025 17:01
[2025-06-11] VITALS (11 sets, daily range): BP systolic 103–132; BP diastolic 75–93; PULSE 55–113; RESP 16–18; TEMP 98.1–98.4; O2SAT 96–99
[2025-06-11 05:44] LABS: Hematocrit 35.5 % (36.0-46.0); Hemoglobin 12.0 g/dL (12.2-16.2); Mean Corpuscular Hemoglobin 27.2 pg (28.0-32.0); Mean Corpuscular Volume 80.8 fL (80.0-100.0); Nucleated Red Blood Cells % 0.1 %
[2025-06-11 05:55] LABS: Alanine Aminotransferase 20 U/L (7-40); Alkaline Phosphatase 78 U/L (46-116); Anion Gap 8 (5-15); BUN/Creatinine Ratio 11.6 (10.0-20.0); Blood Urea Nitrogen 11 mg/dL (9-23); Calcium 9.9 mg/dL (8.7-10.4); Carbon Dioxide 27 mmol/L (20-31); Chloride 102 mmol/L (98-107); Glucose 88 mg/dL (74-106); Potassium 4.1 mmol/L (3.5-5.1); Sodium 137 mmol/L (136-145)
[2025-06-11 05:56] LABS: Albumin 4.2 g/dL (3.2-4.8); Bilirubin, Total 0.4 mg/dL (0.2-1.0); Total Protein 8.2 g/dL (5.7-8.2)
--- NOTE | 2025-06-11 10:30 | DVHPN2 ---
Progress Note - Dictate Date Seen: Jun 11, 2025 Medical Necessity Reason Pt with a Central, PICC or Fol: No vital signs Vital Sign Date Time Temp Pulse Resp B/P (MAP) Pulse Ox O2 Delivery O2 Flow Rate FiO2 06/11/25 10:00 55 06/11/25 09:00 98.4 16 121/93 (102) 99 98.4 06/10/25 20:26 Room Air* 0 21 21 Total Intake and Output 06/10/25 06/10/25 06/11/25 15:00 23:00 07:00 Intake Total 500 ml 0 ml Balance 500 ml 0 ml medications Current Medications Medications Dose Ordered Sig/Topher Route Start Time Stop Time Status Last Admin Dose Admin Albuterol 2.5 mg Q6HPRN PRN NEB 06/07/25 00:30 06/10/25 16:40 2.5 MG Spironolactone 25 mg DAILY PO 06/07/25 10:00 06/11/25 10:00 25 MG Empaglifozin 10 mg DAILY PO 06/07/25 10:00 06/11/25 09:54 10 MG Lisinopril 10 mg DAILY PO 06/07/25 10:00 06/08/25 08:53 10 MG Aspirin 81 mg DAILY PO 06/07/25 10:00 06/11/25 09:55 81 MG Acetaminophen 650 mg Q6HP PRN PO 06/07/25 00:30 Enoxaparin Sodium 40 mg DAILY SC 06/08/25 10:00 06/10/25 09:16 40 MG Acetaminophen/ Hydrocodone Bitart 1 tab Q4HPRN PRN PO 06/07/25 17:45 06/10/25 21:49 1 TAB Carvedilol 6.25 mg Q12HR PO 06/08/25 22:00 06/09/25 09:46 6.25 MG Doxycycline Monohydrate 100 mg Q12HR PO 06/10/25 10:00 06/11/25 09:54 100 MG Amoxicillin/ Clavulanate Potassium 875 mg Q12HR PO 06/11/25 10:00 Furosemide 40 mg DAILY PO 06/11/25 10:00 Ondansetron HCl 4 mg Q6HP PRN PO 06/11/25 09:30 laboratory and microbiology Laboratory Tests 06/11/25 04:53 Test 06/11/25 04:53 Range/Units Serum Glucose 88 74-106 mg/dL Assessment/Plan Impression Bilateral hilar lymphadenopathy Cough- nonspecific ? Sarcoidosis Chest pain Patient seen and examined Events isolation not necessary from my standpoint (normal lungs on CT and no symptoms of active TB!) S/p biopsy of mediastinal lymphadenopathy by IR Results pending follow up with pulm clinic Plan discussed with: Patient CARLOS DELA CRUZ MD Jun 11, 2025 10:30
[2025-06-11] MEDS: FUROSEMIDE 20 MG TAB PO SCH (10:34)
[2025-06-11] MEDS: AMOXICILLIN/CLAVUL 875 MG TAB PO SCH (10:40)
[2025-06-11] MEDS ORDERED: ALBUTEROL SULF HFA 90MCG INH 200DOSE IN SCH (14:00)
[2025-06-11] MEDS: ALBUTEROL SULF HFA 90MCG INH 200DOSE IN PRN (16:19)
--- NOTE | 2025-06-11 17:42 | DVHPNRES ---
Progress Note Date Seen: Jun 11, 2025 Resident Creating Document: GLADYS PEREZ RESIDENT Medical Necessity Reason Pt with a Central, PICC or Fol: No Subjective Review of Systems 34-year-old female presents for evaluation of shortness of breath. Patient reports a 2 day history of worsening of shortness of breath associated with left-sided chest pain which is shooting in nature,7/10 intensity, acute and intermittent in nature. It is associated with a productive cough which is usually yellow or clear. Reports having coughed for the last 1 month and that has increased her shortness of breath. She reports no fever but she says she felt chills, nausea, diaphoresis. She also reports running out of her Lasix a week ago for congestive heart failure. PMH: Chronic heart failure, hypertension PSH: , cholecystectomy Family history: Reviewed and noncontributory to the management of this case Social history: Patient reports smoking 1 pack per day from her teens but since the last few months she has only been having 1 pack the entire month. She also reports drinking alcohol occasionally, and having taken crystal meth smoking before. She reports she does not take it anymore but does smoke marijuana occasionally. Patient lives with her friend and is renting a place. ROS: The patient was seen and examined by me in the bedside. Patient reports that she is feeling better and I asked her regarding any sick contacts recently or if she has had history of travel in the past 15 years. She denies having traveled anywhere in the past 15 years and has not had any sick contacts recently either. Rest of the ROS is negative Objective vital signs Vital Sign Date Time Temp Pulse Resp B/P (MAP) Pulse Ox O2 Delivery O2 Flow Rate FiO2 06/11/25 16:41 98.2 107 17 132/89 (103) 99 98.2 06/11/25 16:20 Room Air* 0 21 Total Intake and Output 06/10/25 06/10/25 06/11/25 15:00 23:00 07:00 Intake Total 500 ml 0 ml Balance 500 ml 0 ml medications Current Medications Medications Dose Ordered Sig/Topher Route Start Time Stop Time Status Last Admin Dose Admin Albuterol 2.5 mg Q6HPRN PRN NEB 06/07/25 00:30 06/10/25 16:40 2.5 MG Spironolactone 25 mg DAILY PO 06/07/25 10:00 06/11/25 10:00 25 MG Empaglifozin 10 mg DAILY PO 06/07/25 10:00 06/11/25 09:54 10 MG Lisinopril 10 mg DAILY PO 06/07/25 10:00 06/08/25 08:53 10 MG Aspirin 81 mg DAILY PO 06/07/25 10:00 06/11/25 09:55 81 MG Acetaminophen 650 mg Q6HP PRN PO 06/07/25 00:30 Enoxaparin Sodium 40 mg DAILY SC 06/08/25 10:00 06/10/25 09:16 40 MG Acetaminophen/ Hydrocodone Bitart 1 tab Q4HPRN PRN PO 06/07/25 17:45 06/10/25 21:49 1 TAB Carvedilol 6.25 mg Q12HR PO 06/08/25 22:00 06/09/25 09:46 6.25 MG Doxycycline Monohydrate 100 mg Q12HR PO 06/10/25 10:00 06/11/25 09:54 100 MG Amoxicillin/ Clavulanate Potassium 875 mg Q12HR PO 06/11/25 10:00 06/11/25 10:40 875 MG Furosemide 40 mg DAILY PO 06/11/25 10:00 Ondansetron HCl 4 mg Q6HP PRN PO 06/11/25 09:30 Albuterol 90 mcg TID PRN IN 06/11/25 14:00 06/11/25 16:19 90 MCG Examination Patient is lying in the bed General Appearance: Alert, Oriented to person, place and time, Cooperative HEENT: Atraumatic, Mucous membranes moist/pink Respiratory: Presence of Rhonchi, crackles heard in bilateral lung moyer Cardiovascular: Regular rate, Normal S1, Normal S2, No murmurs Abdominal: soft, active bowel sounds present, No distention or organomegaly Extremities: tenderness and swelling in bilateral limbs, soft swelling in the right rao which is tender then the right swelling, No edema, Normal pulses, Skin: No Significant rash; linear hyperpigmented scar that spans from right hip to left hip secondary to tummy tuck surgery Neuro: Normal speech, sensorimotor deficits none Psych/Mental Status: Mental status NL laboratory and microbiology Laboratory Tests 06/11/25 04:53 Test 06/11/25 04:53 Range/Units Serum Glucose 88 74-106 mg/dL Microbiology Date/Time Source Procedure Growth Status 06/09/25 15:30 Blood Blood Culture - Preliminary NO GROWTH AFTER 48 HOURS OF INCUBATION. Resulted 06/08/25 16:45 Nose MRSA Screen - Final Complete 06/07/25 18:27 Sputum Gram Stain - Final Complete 06/07/25 18:27 Sputum Respiratory Culture - Final Complete Labs and/or images reviewed: Labs reviewed by me, Image(s) reviewed by me Problem List/Assessment/Plan Problem List/Assessment/Plan #Shortness of breaths likely from CHF versus pneumonia; to r/o TB # chest pain ruled out ACS # Acute on chronic sys CHF(HFrEF) with EF 15% # Hx of methamphetamine abuse # ? Drug induced cardiomyopathy -telemetry -EKG showed sinus tach in but no significant ST changes -ordered a chest pain protocol with morphine, nitroglycerin -aspirin and Lipitor -Echocardiography: LV EF is only 15% with moderate to severe MR, mild posterior pericardial effusion, end-stage dilated cardiomyopathy. -Lasix begin -GDM T with Aldactone, Coreg and Jardiance -carvedilol dose change from 3.125 mg to 6.25 mg -Urine toxicology ordered # Gram-positive bacteremia # ? Acute Gram positive / negative bacterial pneumonia -Chest x-ray shows: There is enlargement of the cardio mediastinal silhouette with prominence of the perihilar spaces, -CT angio shows: No pulmonary embolism. Diffuse confluence mediastinal and bilateral hilar lymphadenopathy. - azithromycin, ceftriaxone stopped, started on doxycycline po and Zosyn -COVID and influenza tests sent, negative -Respiratory culture sent -blood culture 1 came positive and the other negative, repeat culture ,prelim negative -MRSA test # ?Sarcoidosis causing shortness of breath # ? Erythema nodosum # ? TB, preliminary pathology report showed necrotizing granulomas, ordered QuantiFERON test, results pending -Isolation precautions -Pain medications -TYLER panel - negative -RF -12.9 normal levels -DVT scan, results showed: No right or left femoropopliteal venous thrombosis. -ultrasound biopsy of 2.2 x 1.2 x 1.4 cm abnormal right supraclavicular lymph node, -ID consultation; pending -Pulmonology is following # Hypokalemia - Repleted - Monitor lab # Right lower lobe pleural-based pulmonary nodule (1.3 cm) # partial collapse of the right middle lobe with associated atelectasis. # small to moderate pericardial effusion, monitor for now -As seen in CT scan -Pulmonology consult done, suggested- Supplemental oxygen as needed, Titrate to maintain sats 90% or above. Incentive spirometry. Obtain serum ESR, CRP and BERNADETTE level and that patient may require PET/CT scan as outpatient. -ESR elevated (90), CRP elevated (5.17), BERNADETTE enzymes pending # Polysubstance (tobacco and marijuana) use disorder -Counseled on marijuana and tobacco use cessation for more than 12 minutes GI prophylaxis: Not indicated DVT prophylaxis: Lovenox 40mg s.c daily Diet: low-sodium diet Case discussed with Dr. Kent, patient and nurse. Plan discussed with: Patient, Other (rn) Addendum Addendum Addendum I was physically present for the espinosa portions of the service provided to patient by THE RESIDENT. I have reviewed the documentation, discussed the case with resident and agree with the resident's documentation except as noted. Also the patient's clinical case was discussed with the patient's nurse. This medical document was created using an electronic medical record system with computerized dictation system. Although this document has been carefully reviewed, there might still be some phonetic and typographical errors. These areas are purely typographical due to imperfections of the software programs, and do not reflect any compromise in the patient's medical care. Late signature. Date of Service: Jun 11, 2025 Billing Provider: WILMAN KENT MD Common Visit Codes: [id number] INP/OBS CARE(HIGH) GLADYS PEREZ RESIDENT Jun 11, 2025 17:42 DENIS FOSTER RESIDENT Jun 11, 2025 18:14 WILMAN KENT MD Jun 12, 2025 06:37
[2025-06-12] VITALS (9 sets, daily range): BP systolic 101–123; BP diastolic 64–83; PULSE 52–103; RESP 16–18; TEMP 97.6–98; O2SAT 98–100
[2025-06-12 07:00] LABS: Hematocrit 39.2 % (36.0-46.0); Hemoglobin 13.0 g/dL (12.2-16.2); Mean Corpuscular Hemoglobin 27.5 pg (28.0-32.0); Mean Corpuscular Volume 83.3 fL (80.0-100.0); Nucleated Red Blood Cells % 0.2 %
[2025-06-12 07:16] LABS: Alanine Aminotransferase 29 U/L (7-40); Albumin 4.6 g/dL (3.2-4.8); Alkaline Phosphatase 86 U/L (46-116); Anion Gap 9 (5-15); BUN/Creatinine Ratio 10.3 (10.0-20.0); Blood Urea Nitrogen 10 mg/dL (9-23); Carbon Dioxide 25 mmol/L (20-31); Chloride 103 mmol/L (98-107); Glucose 83 mg/dL (74-106); Potassium 3.8 mmol/L (3.5-5.1); Sodium 137 mmol/L (136-145)
[2025-06-12 07:17] LABS: Bilirubin, Total 0.4 mg/dL (0.2-1.0)
[2025-06-12 07:19] LABS: Calcium 11.1 mg/dL (8.7-10.4); Total Protein 9.0 g/dL (5.7-8.2)
--- NOTE | 2025-06-12 11:09 | DVHPNRES ---
Progress Note Date Seen: Jun 12, 2025 Resident Creating Document: JORDANA ALBERTO RESIDENT Medical Necessity Reason Pt with a Central, PICC or Fol: No Subjective Review of Systems A 34-year-old female presents for evaluation of shortness of breath. Patient reports a 2 day history of worsening of shortness of breath associated with left-sided chest pain which is shooting in nature,7/10 intensity, acute and intermittent in nature. It is associated with a productive cough which is usually yellow or clear. Reports having coughed for the last 1 month and that has increased her shortness of breath. She reports no fever but she says she felt chills, nausea, diaphoresis. She also reports running out of her Lasix a week ago for congestive heart failure. PMH: Chronic heart failure, hypertension PSH: , cholecystectomy Family history: Reviewed and noncontributory to the management of this case Social history: Patient reports smoking 1 pack per day from her teens but since the last few months she has only been having 1 pack the entire month. She also reports drinking alcohol occasionally, and having taken crystal meth smoking before. She reports she does not take it anymore but does smoke marijuana occasionally. Patient lives with her friend and is renting a place. 06/12/2025 interval events: ROS: The patient was seen and examined by me in the bedside. Patient reports that she is feeling better and expessing to go home and explained importance of staying at hospital. Overnight events reviewed, reported no active complaints except anterior leg pains bilaterally. She denies any chest pain, nausea, vomiting, shortness of breath other complaints. Rest of ROS is negative. Objective vital signs Vital Sign Date Time Temp Pulse Resp B/P (MAP) Pulse Ox O2 Delivery O2 Flow Rate FiO2 06/12/25 09:00 97.9 95 16 101/67 (78) 99 97.9 06/12/25 08:30 Room Air* 0 21 Total Intake and Output 06/11/25 06/11/25 06/12/25 14:59 22:59 06:59 Intake Total 400 ml 600 ml Balance 400 ml 600 ml medications Current Medications Medications Dose Ordered Sig/Topher Route Start Time Stop Time Status Last Admin Dose Admin Albuterol 2.5 mg Q6HPRN PRN NEB 06/07/25 00:30 06/10/25 16:40 2.5 MG Spironolactone 25 mg DAILY PO 06/07/25 10:00 06/12/25 09:04 25 MG Empaglifozin 10 mg DAILY PO 06/07/25 10:00 06/12/25 09:04 10 MG Lisinopril 10 mg DAILY PO 06/07/25 10:00 06/08/25 08:53 10 MG Aspirin 81 mg DAILY PO 06/07/25 10:00 06/12/25 08:57 81 MG Acetaminophen 650 mg Q6HP PRN PO 06/07/25 00:30 Enoxaparin Sodium 40 mg DAILY SC 06/08/25 10:00 06/12/25 09:23 40 MG Acetaminophen/ Hydrocodone Bitart 1 tab Q4HPRN PRN PO 06/07/25 17:45 06/12/25 06:00 1 TAB Carvedilol 6.25 mg Q12HR PO 06/08/25 22:00 06/09/25 09:46 6.25 MG Doxycycline Monohydrate 100 mg Q12HR PO 06/10/25 10:00 06/12/25 08:58 100 MG Amoxicillin/ Clavulanate Potassium 875 mg Q12HR PO 06/11/25 10:00 06/12/25 08:58 875 MG Furosemide 40 mg DAILY PO 06/11/25 10:00 Ondansetron HCl 4 mg Q6HP PRN PO 06/11/25 09:30 Albuterol 90 mcg TID PRN IN 06/11/25 14:00 06/11/25 16:19 90 MCG Examination Patient is lying in the bed General Appearance: Alert, Oriented to person, place and time, Cooperative HEENT: Atraumatic, Mucous membranes moist/pink Respiratory: Presence of Rhonchi, crackles heard in bilateral lung moyer Cardiovascular: Regular rate, Normal S1, Normal S2, No murmurs Abdominal: soft, active bowel sounds present, No distention or organomegaly Extremities: tenderness and swelling in bilateral limbs, soft swelling in the right rao which is tender then the right swelling, No edema, Normal pulses, Skin: No Significant rash; linear hyperpigmented scar that spans from right hip to left hip secondary to tummy tuck surgery Neuro: Normal speech, sensorimotor deficits none laboratory and microbiology Laboratory Tests 06/12/25 05:02 Test 06/12/25 05:02 Range/Units Serum Glucose 83 74-106 mg/dL Microbiology Date/Time Source Procedure Growth Status 06/09/25 15:30 Blood Blood Culture - Preliminary NO GROWTH AFTER 48 HOURS OF INCUBATION. Resulted 06/08/25 16:45 Nose MRSA Screen - Final Complete 06/07/25 18:27 Sputum Gram Stain - Final Complete 06/07/25 18:27 Sputum Respiratory Culture - Final Complete Labs and/or images reviewed: Labs reviewed by me, Image(s) reviewed by me Problem List/Assessment/Plan Problem List/Assessment/Plan Shortness of breaths likely from CHF versus pneumonia; to r/o TB # chest pain ruled out ACS # Acute on chronic sys CHF(HFrEF) with EF 15% # Hx of methamphetamine abuse # ? Drug induced cardiomyopathy -telemetry -EKG showed sinus tach in but no significant ST changes -ordered a chest pain protocol with morphine, nitroglycerin -aspirin and Lipitor -Echocardiography: LV EF is only 15% with moderate to severe MR, mild posterior pericardial effusion, end-stage dilated cardiomyopathy. -Lasix begin -GDM T with Aldactone, Coreg and Jardiance -carvedilol dose change from 3.125 mg to 6.25 mg -Urine toxicology ordered # Gram-positive bacteremia # ? Acute Gram positive / negative bacterial pneumonia -Chest x-ray shows: There is enlargement of the cardio mediastinal silhouette with prominence of the perihilar spaces, -CT angio shows: No pulmonary embolism. Diffuse confluence mediastinal and bilateral hilar lymphadenopathy. - azithromycin, ceftriaxone stopped, started on doxycycline po and Zosyn -COVID and influenza tests sent, negative -Respiratory culture sent -blood culture 1 came positive and the other negative, repeat culture ,prelim negative -MRSA test,negative # ?Sarcoidosis causing shortness of breath # ? Erythema nodosum # ? TB, preliminary pathology report showed necrotizing granulomas, ordered QuantiFERON test, results pending -Isolation precautions -TYLER panel - negative -RF -12.9 normal levels -DVT scan, results showed: No right or left femoropopliteal venous thrombosis. -ultrasound biopsy of 2.2 x 1.2 x 1.4 cm abnormal right supraclavicular lymph node, -ID consultation; pending -Pulmonology is following # Hypokalemia - Repleted - Monitor lab # Right lower lobe pleural-based pulmonary nodule (1.3 cm) # partial collapse of the right middle lobe with associated atelectasis. # small to moderate pericardial effusion, monitor for now -As seen in CT scan -Pulmonology consult done, suggested- Supplemental oxygen as needed, Titrate to maintain sats 90% or above. Incentive spirometry. Obtain serum ESR, CRP and BERNADETTE level and that patient may require PET/CT scan as outpatient. -ESR elevated (90), CRP elevated (5.17), BERNADETTE enzymes pending # Polysubstance (tobacco and marijuana) use disorder -Counseled on marijuana and tobacco use cessation for more than 12 minutes GI prophylaxis: Not indicated DVT prophylaxis: Lovenox 40mg s.c daily Diet: low-sodium diet Case discussed with Dr. Kent, patient and nurse. Plan discussed with: Patient, Other (RN) Addendum Addendum Addendum I was physically present for the espinosa portions of the service provided to patient by THE RESIDENT. I have reviewed the documentation, discussed the case with resident and agree with the resident's documentation except as noted. Also the patient's clinical case was discussed with the patient's nurse. This medical document was created using an electronic medical record system with computerized dictation system. Although this document has been carefully reviewed, there might still be some phonetic and typographical errors. These areas are purely typographical due to imperfections of the software programs, and do not reflect any compromise in the patient's medical care. Late signature. Date of Service: Jun 12, 2025 Billing Provider: WILMAN KENT MD Common Visit Codes: [id number] INP/OBS CARE(HIGH) JORDANA ALBERTO RESIDENT Jun 12, 2025 11:09 DENIS FOSTER RESIDENT Jun 12, 2025 15:12 WILMAN KENT MD Jun 13, 2025 12:24
--- NOTE | 2025-06-12 14:31 | DVHPN2 ---
Progress Note - Dictate Date Seen: Jun 12, 2025 Medical Necessity Reason Pt with a Central, PICC or Fol: No vital signs Vital Sign Date Time Temp Pulse Resp B/P (MAP) Pulse Ox O2 Delivery O2 Flow Rate FiO2 06/12/25 10:00 99 Room Air* 0 21 06/12/25 10:00 101/67 06/12/25 09:00 97.9 95 16 97.9 Total Intake and Output 06/11/25 06/11/25 06/12/25 15:00 23:00 07:00 Intake Total 400 ml 600 ml Balance 400 ml 600 ml medications Current Medications Medications Dose Ordered Sig/Topher Route Start Time Stop Time Status Last Admin Dose Admin Albuterol 2.5 mg Q6HPRN PRN NEB 06/07/25 00:30 06/10/25 16:40 2.5 MG Spironolactone 25 mg DAILY PO 06/07/25 10:00 06/12/25 09:04 25 MG Empaglifozin 10 mg DAILY PO 06/07/25 10:00 06/12/25 09:04 10 MG Lisinopril 10 mg DAILY PO 06/07/25 10:00 06/08/25 08:53 10 MG Aspirin 81 mg DAILY PO 06/07/25 10:00 06/12/25 08:57 81 MG Acetaminophen 650 mg Q6HP PRN PO 06/07/25 00:30 Enoxaparin Sodium 40 mg DAILY SC 06/08/25 10:00 06/12/25 09:23 40 MG Acetaminophen/ Hydrocodone Bitart 1 tab Q4HPRN PRN PO 06/07/25 17:45 06/12/25 06:00 1 TAB Carvedilol 6.25 mg Q12HR PO 06/08/25 22:00 06/09/25 09:46 6.25 MG Doxycycline Monohydrate 100 mg Q12HR PO 06/10/25 10:00 06/12/25 08:58 100 MG Amoxicillin/ Clavulanate Potassium 875 mg Q12HR PO 06/11/25 10:00 06/12/25 08:58 875 MG Furosemide 40 mg DAILY PO 06/11/25 10:00 Ondansetron HCl 4 mg Q6HP PRN PO 06/11/25 09:30 Albuterol 90 mcg TID PRN IN 06/11/25 14:00 06/11/25 16:19 90 MCG laboratory and microbiology Laboratory Tests 06/12/25 05:02 Test 06/12/25 05:02 Range/Units Serum Glucose 83 74-106 mg/dL Assessment/Plan Impression Bilateral hilar lymphadenopathy Cough- nonspecific ? Sarcoidosis Chest pain Patient seen and examined Events Low oxygen requirements On room No distress isolation not necessary from my standpoint (normal lungs on CT and no symptoms of active TB!) S/p biopsy of mediastinal lymphadenopathy by IR Results pending follow up with pulm clinic Plan discussed with: Patient CARLOS DELA CRUZ MD Jun 12, 2025 14:31
--- NOTE | 2025-06-12 19:28 | DVHINCON2 ---
Date of service: Jun 12, 2025 Family History: Arthritis G8 MOTHER G8 FATHER Hypertension G8 FATHER Allergies: Coded Allergies: NO KNOWN ALLERGIES (Unverified , 06/06/25) Vital Signs Vital Signs Date Time Temp Pulse Resp B/P (MAP) Pulse Ox O2 Delivery O2 Flow Rate FiO2 06/12/25 19:10 100 Room Air 0.0 06/12/25 19:10 21 06/12/25 17:00 97.9 103 18 106/64 (78) 97.9 Labs/Diagnostic Data Labs Test 06/12/25 05:02 06/11/25 04:53 06/10/25 12:59 06/09/25 11:40 Range/Units White Blood Count 6.0 4.4-10.8 10^3/uL Red Blood Count 4.70 4.0-5.20 10^6/uL Hemoglobin 13.0 12.2-16.2 g/dL Hematocrit 39.2 # 36.0-46.0 % Mean Corpuscular Volume 83.3 80.0-100.0 fL Mean Corpuscular Hemoglobin 27.5 L 28.0-32.0 pg Mean Corpuscular Hemoglobin Concent 33.1 32.0-36.0 g/dL Red Cell Distribution Width 16.4 H 11.8-14.3 % Platelet Count 430 140-450 10^3/uL Mean Platelet Volume 7.8 6.9-10.8 fL Neutrophils (%) (Auto) 73.0 37.0-80.0 % Lymphocytes (%) (Auto) 16.6 10.0-50.0 % Monocytes (%) (Auto) 7.4 0.0-12.0 % Eosinophils (%) (Auto) 2.2 0.0-7.0 % Basophils (%) (Auto) 0.8 0.0-2.0 % Neutrophils # (Auto) 4.4 1.6-8.6 10 ^3/uL Lymphocytes # (Auto) 1.0 0.4-5.4 10 ^3/uL Monocytes # (Auto) 0.4 0-1.3 10 ^3/uL Eosinophils # (Auto) 0.1 0-0.8 10 ^3/uL Basophils # (Auto) 0 0-0.2 10 ^3/uL Nucleated Red Blood Cells 0.2 % Sodium Level 137 136-145 mmol/L Potassium Level 3.8 3.5-5.1 mmol/L Chloride Level 103 98-107 mmol/L Carbon Dioxide Level 25 20-31 mmol/L Anion Gap 9 5-15 Blood Urea Nitrogen 10 9-23 mg/dL Creatinine 0.97 0.550-1.02 mg/dL Glomerular Filtration Rate Calc 79 >90 mL/min BUN/Creatinine Ratio 10.3 10.0-20.0 Serum Glucose 83 74-106 mg/dL Calcium Level 11.1 H 8.7-10.4 mg/dL Total Bilirubin 0.4 0.2-1.0 mg/dL Aspartate Amino Transferase (AST) 39 13-40 U/L Alanine Aminotransferase (ALT) 29 7-40 U/L Alkaline Phosphatase 86 46-116 U/L Total Protein 9.0 H 5.7-8.2 g/dL Albumin 4.6 3.2-4.8 g/dL HIV (1&2) Antibody Negative Negative Prothrombin Time 11.4 9.3-11.8 sec Prothrombin Time INR 1.08 0.9-1.15 Activated Partial Thromboplast Time 31.6 24.5-34.5 SEC Test 06/08/25 14:22 06/08/25 11:50 06/07/25 19:10 06/07/25 12:15 Range/Units Rheumatoid Factor 12.9 <14.0 IU/mL Anti-Nuclear Antibody Screen Negative Negative Urine Color Yellow Yellow Urine Clarity Clear Clear Urine pH 5.5 5.0-9.0 Urine Specific Sigel 1.032 1.001-1.035 Urine Protein 1+ H Negative Urine Ketones Negative Negative Urine Blood Negative Negative /uL Urine Nitrite Negative Negative Urine Bilirubin Negative Negative Urine Urobilinogen 3 H Negative mg/dL Urine Leukocyte Esterase Negative Negative /uL Urine RBC 3 0 - 4 /hpf Urine Microscopic WBC 2 0-5 /HPF Urine Squamous Epithelial Cells Few <5 /hpf Urine Bacteria None seen None Seen /hpf Urine Mucus Few None Seen Urine Glucose 3+ H Normal mg/dL Angiotensin Converting Enzyme 82 14-82 U/L Influenza Type A Antigen Negative Negative Influenza Type B Antigen Negative Negative SARS-CoV-2 Antigen (Rapid) Negative NEGATIVE Test 06/07/25 10:13 06/06/25 23:48 06/06/25 21:07 06/06/25 20:46 Range/Units Erythrocyte Sedimentation Rate 90 H 0-20 mm/hr Lactic Acid Level 1.5 0.4-2.0 mmol/L Magnesium Level 1.9 1.6-2.6 mg/dL C-Reactive Protein High Sensitivity 5.17 H <1.0 mg/dL Hepatitis B Surface Antigen Negative Negative Hepatitis C Antibody Negative Negative Troponin I High Sensitivity 8 </=34 ng/L Urine Hyaline Casts Few 0 - 2 /lpf D-Dimer, Quantitative 1.84 H 0.0-0.49 mg/L FEU B-Type Natriuretic Peptide 695.73 0-100 pg/mL Microbiology Date/Time Source Procedure Growth Status 06/09/25 15:30 Blood Blood Culture - Preliminary NO GROWTH AFTER 72 HOURS OF INCUBATION. Resulted 06/08/25 16:45 Nose MRSA Screen - Final Complete 06/07/25 18:27 Sputum Gram Stain - Final Complete 06/07/25 18:27 Sputum Respiratory Culture - Final Complete Problems(with codes): (1) Diastolic heart failure (2) Elevated d-dimer (3) Acute dyspnea (4) Community acquired bacterial pneumonia Plan/Recommendation ASSESSMENT AND PLAN: ID Problem List: \-- Recurrent pulmonary edema \-- Shortness of breath \-- Chest pain \-- Hilar/mediastinal lymphadenopathy \-- Supraclavicular lymphadenopathy \-- Cardiomegaly \-- Pericardial effusion \-- Pleural-based nodule right lower lobe \-- Pulmonary embolism \-- Awaiting supraclavicular lymph node biopsy results Assessment This is a 34 y.o. female with a history of recurrent pulmonary edema, presenting with two days of worsening shortness of breath, left-sided pressure-like chest pain, and nonproductive cough. She reports being out of her Lasix for a week prior to admission. On admission, patient was tachycardic, and noted to have enlarged cervical and supraclavicular lymph nodes. Home medications were restarted and echocardiogram obtained. Imaging findings (CXR, CTA chest) are notable for: -Enlargement of the cardiomediastinal silhouette -Prominence of perihilar spaces -Cardiomegaly -Small to moderate pericardial effusion -Right lower lobe pleural-based pulmonary nodule (1.3 cm) -Partial collapse of right middle lobe -Diffuse mediastinal and basilar hilar lymphadenopathy -Pulmonary embolism Biopsies and laboratory findings: -Initial blood cultures positive for Staph epidermidis in 1/4 bottles, likely contaminant; subsequent cultures negative. -Sputum culture: normal pharyngeal arturo. -TB QuantiFERON pending, HIV/Influenza/COVID-19 all negative. -Soft tissue ultrasound shows abnormal right supraclavicular lymph node (2.2 x 1.2 x 1.4 cm). Ultrasound-guided biopsy performed, results pending. -No evidence of DVT on Doppler ultrasound. Plan: \-- Continue current antibiotics: ceftriaxone and doxycycline, to complete a seven-day course. \-- Follow up on supraclavicular lymph node biopsy results. \-- Follow up on pending TB QuantiFERON testing. \-- No further acute TB workup indicated at this time due to low suspicion. \-- Recommend follow-up in infectious disease clinic in 2-4 weeks to review biopsy and any additional findings. \-- Monitor for potential dissemination or alternative diagnosis if granulomatous disease is identified. \-- Cardiology to manage pericardial effusion and recurrent pulmonary edema; reinforce adherence to medications including Lasix. \-- Continue to monitor for new symptoms or deterioration. Isolation Precautions: Standard Assessment and plan discussed with patient as above. Plan is subject to change pending pending incoming diagnostic results. Updates will be added as appropriate. Thank you for consultation. ID will continue to follow. Provider is available for questions or concerns. Miky Farrell M.D. [facility] Ph: ? Electronically signed by: Miky Farrell MD, 06/12/2025 \ History: The patient's chart and medications were reviewed in detail and the patient was seen and examined. History obtained from: patient 34 y.o. female with history significant for recurrent pulmonary edema, presenting with shortness of breath, pressure-like left-sided chest pain, and nonproductive cough for 2 days. No fevers, chills, or diarrhea. Was out of Lasix for the past week prior to admission. Past surgical history notable for C- section and cholecystectomy. No significant travel, incarceration, or TB exposure. Social history negative for alcohol, IV drug use, but reports marijuana use and smokes fewer than five cigarettes per day. Review of Systems: A complete 10 system review of systems was completed and negative except as noted in the HPI or here. ROS: -CONSTITUTIONAL: Denies weight loss, fever, and chills. -HEENT: Denies changes in vision and hearing. -RESPIRATORY: Shortness of breath, nonproductive cough. Denies hemoptysis. -CV: Left-sided pressure-like chest pain. Denies palpitations. -GI: Denies abdominal pain, nausea, vomiting, or diarrhea. -: Not discussed. -MSK: Not discussed. -SKIN: Not discussed. -NEUROLOGICAL: Denies headache and syncope. -PSYCHIATRIC: Not discussed. Past Medical History: -Recurrent pulmonary edema Past Surgical History: - section -Cholecystectomy Home Medications: -Lasix (furosemide): details not specified; patient was out for one week prior to admission. -Other home medications not provided. Allergies: Not provided in transcript. Family History: Not provided in transcript. Social History: -Smoking: Less than five cigarettes per day -Marijuana use: Yes -Alcohol: No -IV drug use: No -Travel/risks: None reported Social Determinants of Health: Not provided in transcript. Objective: Vital Signs on Arrival: Temperature: 90.7 F Tachycardic (exact pulse not specified) Respiratory rate: 16 Blood pressure: 110/70 Oxygen saturation: 79% (unit not specified; presumed abnormal at admission) Most Recent Vital Signs: Not provided in transcript. Admission Weight: Not provided in transcript. Physical Exam: General: NAD Neck: Supple. No masses. Enlarged cervical and supraclavicular lymph nodes. HEENT: PERRL. Normal lids and conjunctiva. Moist mucous membranes. Oropharynx without lesions, exudates or excessive erythema. Normal appearance of the external aspects of the nose and ears. Heart: Regular rhythm, normal rate. No murmur. No lower extremity edema. Lungs: Normal respiratory effort. Coarse cough. Clear to auscultation bilaterally. No wheezes. No crackles. Abdomen: Soft. Non-tender. Non-distended. No masses or abdominal hernia. Msk: No digital cyanosis. Normal strength and tone in all 4 limbs Skin: Warm and dry, no rashes. Neuro: Alert. No facial droop or slurred speech. Extra-ocular movements intact. Sensation intact to soft touch in all 4 limbs. Psych: Appropriate mood. Full affect. Oriented to person, place, time, and situation. Lines: Not discussed. Diagnostic Studies: Available diagnostic studies were reviewed personally. Significant relevant results and findings are outlined below or addressed in the Assessment and Plan above. Pertinent Imaging: CXR (Chest X-ray): -Enlargement of the cardiomediastinal silhouette -Prominence of perihilar spaces -Lungs clear -No effusion or pneumothorax CTA Chest: -No focal consolidation, pleural effusion, or pneumothorax -Right lower lobe pleural-based nodular density (1.3 cm) -Partial collapse of right middle lobe -Pulmonary embolism -Diffuse confluence of mediastinal and basilar hilar lymphadenopathy -Cardiomegaly -Small to moderate pericardial effusion Ultrasound (Soft tissue, supraclavicular): -Abnormal right supraclavicular lymph node (2.2 x 1.2 x 1.4 cm) Ultrasound guided biopsy: -Right supraclavicular lymph node biopsy performed; results pending Doppler Ultrasound (LE): -No right or left femoral venous thrombosis Laboratory Studies: -Troponin: 8 -WBC: 7.6 -Hemoglobin: 12.3 -Platelet count: 385 -Pro BNP: 695 -Sodium: 136 -BUN: 12 -Creatinine: 0.95 -Initial blood cultures positive for Staph epidermidis in one out of four bottles (likely contaminant, anaerobic bottle); repeat negative -Respiratory/sputum culture: normal pharyngeal arturo -TB QuantiFERON: pending -HIV, influenza A/B, SARS-CoV-2: all negative -Urinalysis: without diarrhea Electronically signed by: Miky Farrell MD, 06/12/2025 Plan discussed with: Patient MIKY FARRELL MD Jun 12, 2025 19:28
[2025-06-13] VITALS (12 sets, daily range): BP systolic 101–110; BP diastolic 62–73; PULSE 55–122; RESP 17–20; TEMP 98–101.7; O2SAT 96–100
[2025-06-13 07:12] LABS: Hematocrit 35.9 % (36.0-46.0); Hemoglobin 12.1 g/dL (12.2-16.2); Mean Corpuscular Hemoglobin 27.6 pg (28.0-32.0); Mean Corpuscular Volume 81.6 fL (80.0-100.0); Nucleated Red Blood Cells % 0.0 %
[2025-06-13 07:20] LABS: Chloride 102 mmol/L (98-107); Potassium 4.3 mmol/L (3.5-5.1)
[2025-06-13 07:21] LABS: Anion Gap 7 (5-15); Carbon Dioxide 26 mmol/L (20-31)
[2025-06-13 07:26] LABS: BUN/Creatinine Ratio 10.7 (10.0-20.0); Blood Urea Nitrogen 11 mg/dL (9-23); Glucose 80 mg/dL (74-106)
[2025-06-13 07:34] LABS: Calcium 10.8 mg/dL (8.7-10.4); Sodium 135 mmol/L (136-145)
--- NOTE | 2025-06-13 13:32 | DVHPN2 ---
Progress Note - Dictate Date Seen: Jun 13, 2025 Medical Necessity Reason Pt with a Central, PICC or Fol: No vital signs Vital Sign Date Time Temp Pulse Resp B/P (MAP) Pulse Ox O2 Delivery O2 Flow Rate FiO2 06/13/25 10:00 99 Room Air 0.0 06/13/25 10:00 21 06/13/25 10:00 101/63 06/13/25 10:00 55 06/13/25 09:00 98.4 17 98.4 Total Intake and Output 06/12/25 06/12/25 06/13/25 15:00 23:00 07:00 Intake Total 900 ml 700 ml Balance 900 ml 700 ml medications Current Medications Medications Dose Ordered Sig/Topher Route Start Time Stop Time Status Last Admin Dose Admin Albuterol 2.5 mg Q6HPRN PRN NEB 06/07/25 00:30 06/10/25 16:40 2.5 MG Spironolactone 25 mg DAILY PO 06/07/25 10:00 06/12/25 09:04 25 MG Empaglifozin 10 mg DAILY PO 06/07/25 10:00 06/13/25 09:55 10 MG Lisinopril 10 mg DAILY PO 06/07/25 10:00 06/08/25 08:53 10 MG Aspirin 81 mg DAILY PO 06/07/25 10:00 06/13/25 09:55 81 MG Acetaminophen 650 mg Q6HP PRN PO 06/07/25 00:30 Enoxaparin Sodium 40 mg DAILY SC 06/08/25 10:00 06/13/25 09:55 40 MG Acetaminophen/ Hydrocodone Bitart 1 tab Q4HPRN PRN PO 06/07/25 17:45 06/12/25 21:52 1 TAB Carvedilol 6.25 mg Q12HR PO 06/08/25 22:00 06/12/25 21:51 6.25 MG Doxycycline Monohydrate 100 mg Q12HR PO 06/10/25 10:00 06/13/25 09:55 100 MG Amoxicillin/ Clavulanate Potassium 875 mg Q12HR PO 06/11/25 10:00 06/13/25 09:55 875 MG Furosemide 40 mg DAILY PO 06/11/25 10:00 Ondansetron HCl 4 mg Q6HP PRN PO 06/11/25 09:30 Albuterol 90 mcg TID PRN IN 06/11/25 14:00 06/11/25 16:19 90 MCG laboratory and microbiology Laboratory Tests 06/13/25 05:09 Test 06/13/25 05:09 Range/Units Serum Glucose 80 74-106 mg/dL Assessment/Plan Impression Bilateral hilar lymphadenopathy Cough- nonspecific ? Sarcoidosis Chest pain Patient seen and examined Events Low oxygen requirements On room No acute events isolation not necessary from my standpoint (normal lungs on CT and no symptoms of active TB!) S/p biopsy of mediastinal lymphadenopathy by IR Results pending follow up with pulm clinic Dietary Evaluation Review Comments: Continue current POC Expected Outcomes/Goals: To meet >75% estimated needs Lab values to improve Fu 3-5 days Plan discussed with: Patient CARLOS DELA CRUZ MD Jun 13, 2025 13:32
--- NOTE | 2025-06-13 15:27 | DVHPNRES ---
Progress Note Date Seen: Jun 13, 2025 Resident Creating Document: GLADYS PEREZ RESIDENT Medical Necessity Reason Pt with a Central, PICC or Fol: No Subjective Review of Systems A 34-year-old female presents for evaluation of shortness of breath. Patient reports a 2 day history of worsening of shortness of breath associated with left-sided chest pain which is shooting in nature,7/10 intensity, acute and intermittent in nature. It is associated with a productive cough which is usually yellow or clear. Reports having coughed for the last 1 month and that has increased her shortness of breath. She reports no fever but she says she felt chills, nausea, diaphoresis. She also reports running out of her Lasix a week ago for congestive heart failure. PMH: Chronic heart failure, hypertension PSH: , cholecystectomy Family history: Reviewed and noncontributory to the management of this case Social history: Patient reports smoking 1 pack per day from her teens but since the last few months she has only been having 1 pack the entire month. She also reports drinking alcohol occasionally, and having taken crystal meth smoking before. She reports she does not take it anymore but does smoke marijuana occasionally. Patient lives with her friend and is renting a place. The patient was seen and examined by me in the bedside. Overnight events were reviewed. Patient has no new complaints and says that she is feeling well. she is slightly anxious to go home. Objective vital signs Vital Sign Date Time Temp Pulse Resp B/P (MAP) Pulse Ox O2 Delivery O2 Flow Rate FiO2 06/13/25 13:00 99.2 104 17 109/73 (85) 98 99.2 06/13/25 10:00 Room Air 0.0 06/13/25 10:00 21 Total Intake and Output 06/12/25 06/12/25 06/13/25 15:00 23:00 07:00 Intake Total 900 ml 700 ml Balance 900 ml 700 ml medications Current Medications Medications Dose Ordered Sig/Topher Route Start Time Stop Time Status Last Admin Dose Admin Albuterol 2.5 mg Q6HPRN PRN NEB 06/07/25 00:30 06/10/25 16:40 2.5 MG Spironolactone 25 mg DAILY PO 06/07/25 10:00 06/12/25 09:04 25 MG Empaglifozin 10 mg DAILY PO 06/07/25 10:00 06/13/25 09:55 10 MG Lisinopril 10 mg DAILY PO 06/07/25 10:00 06/08/25 08:53 10 MG Aspirin 81 mg DAILY PO 06/07/25 10:00 06/13/25 09:55 81 MG Acetaminophen 650 mg Q6HP PRN PO 06/07/25 00:30 Enoxaparin Sodium 40 mg DAILY SC 06/08/25 10:00 06/13/25 09:55 40 MG Acetaminophen/ Hydrocodone Bitart 1 tab Q4HPRN PRN PO 06/07/25 17:45 06/12/25 21:52 1 TAB Carvedilol 6.25 mg Q12HR PO 06/08/25 22:00 06/12/25 21:51 6.25 MG Doxycycline Monohydrate 100 mg Q12HR PO 06/10/25 10:00 06/13/25 09:55 100 MG Amoxicillin/ Clavulanate Potassium 875 mg Q12HR PO 06/11/25 10:00 06/13/25 09:55 875 MG Furosemide 40 mg DAILY PO 06/11/25 10:00 Ondansetron HCl 4 mg Q6HP PRN PO 06/11/25 09:30 Albuterol 90 mcg TID PRN IN 06/11/25 14:00 06/11/25 16:19 90 MCG Examination Patient is lying in the bed General Appearance: Alert, Oriented to person, place and time, Cooperative, slightly irritable HEENT: Atraumatic, Mucous membranes moist/pink Respiratory: Rhonchi, crackles heard in bilateral lung moyer Cardiovascular: Regular rate, Normal S1, Normal S2, No murmurs Abdominal: Soft, active bowel sounds present, No distention or organomegaly Extremities: tenderness and swelling in bilateral limbs, soft swelling in the right rao which is tender then the right swelling, No edema, Normal pulses, Skin: No Significant rash; linear hyperpigmented scar that spans from right hip to left hip secondary to tummy tuck surgery Neuro: Normal speech, no sensorimotor deficits laboratory and microbiology Laboratory Tests 06/13/25 05:09 Test 06/13/25 05:09 Range/Units Serum Glucose 80 74-106 mg/dL Microbiology Date/Time Source Procedure Growth Status 06/09/25 15:30 Blood Blood Culture - Preliminary NO GROWTH AFTER 72 HOURS OF INCUBATION. Resulted 06/08/25 16:45 Nose MRSA Screen - Final Complete 06/07/25 18:27 Sputum Gram Stain - Final Complete 06/07/25 18:27 Sputum Respiratory Culture - Final Complete Labs and/or images reviewed: Labs reviewed by me, Image(s) reviewed by me Problem List/Assessment/Plan Problem List/Assessment/Plan #Shortness of breaths likely from CHF versus pneumonia; to r/o TB # chest pain ruled out ACS # Acute on chronic sys CHF(HFrEF) with EF 15% # Hx of methamphetamine abuse # ? Drug induced cardiomyopathy -telemetry -EKG showed sinus tach in but no significant ST changes -ordered a chest pain protocol with morphine, nitroglycerin -aspirin and Lipitor -Echocardiography: LV EF is only 15% with moderate to severe MR, mild posterior pericardial effusion, end-stage dilated cardiomyopathy. -Lasix begin -GDM T with Aldactone, Coreg and Jardiance -carvedilol dose change from 3.125 mg to 6.25 mg -Urine toxicology ordered # Gram-positive bacteremia # ? Acute Gram positive / negative bacterial pneumonia -Chest x-ray shows: There is enlargement of the cardio mediastinal silhouette with prominence of the perihilar spaces, -CT angio shows: No pulmonary embolism. Diffuse confluence mediastinal and bilateral hilar lymphadenopathy. - azithromycin, ceftriaxone stopped, started on doxycycline po and augmentin po -COVID and influenza tests sent, negative -Respiratory culture sent -blood culture 1 came positive and the other negative, repeat culture ,prelim negative -MRSA test,negative # ?Sarcoidosis causing shortness of breath # ? 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 -ultrasound biopsy of 2.2 x 1.2 x 1.4 cm abnormal right supraclavicular lymph node, -ID consultation suggest: - continue current antibiotics: ceftriaxone and doxycycline, to complete a seven-day course; - Follow up on supraclavicular lymph node biopsy results. - Follow up on pending TB QuantiFERON testing. - No further acute TB workup indicated at this time due to low suspicion. - Recommend follow-up in infectious disease clinic in 2-4 weeks to review biopsy and any additional findings. - Monitor for potential dissemination or alternative diagnosis if granulomatous disease is identified. -Pulmonology consulted, suggest isolation not necessary from their standpoint as there is no symptoms of active TB and lungs are normal on CT. They are following # Hypokalemia - Repleted - Monitor lab # Right lower lobe pleural-based pulmonary nodule (1.3 cm) # partial collapse of the right middle lobe with associated atelectasis. # small to moderate pericardial effusion, monitor for now -As seen in CT scan -Pulmonology consult done, suggested- Supplemental oxygen as needed, Titrate to maintain sats 90% or above. Incentive spirometry. Obtain serum ESR, CRP and BERNADETTE level and that patient may require PET/CT scan as outpatient. -ESR elevated (90), CRP elevated (5.17), BERNADETTE enzymes pending # Polysubstance (tobacco and marijuana) use disorder -Counseled on marijuana and tobacco use cessation GI prophylaxis: Not indicated DVT prophylaxis: Lovenox 40mg s.c daily Diet: low-sodium diet Case discussed with Dr. Kent, patient and nurse. Plan discussed with: Patient, Other (rn) Dietary Evaluation Review Comments: Continue current POC Expected Outcomes/Goals: To meet >75% estimated needs Lab values to improve Fu 3-5 days Addendum Addendum Addendum I was physically present for the espinosa portions of the service provided to patient by THE RESIDENT. I have reviewed the documentation, discussed the case with resident and agree with the resident's documentation except as noted. Also the patient's clinical case was discussed with the patient's nurse. This medical document was created using an electronic medical record system with computerized dictation system. Although this document has been carefully reviewed, there might still be some phonetic and typographical errors. These areas are purely typographical due to imperfections of the software programs, and do not reflect any compromise in the patient's medical care. Late signature. Date of Service: Jun 13, 2025 Billing Provider: WILMAN KENT MD Common Visit Codes: [id number] INP/OBS CARE(HIGH) GLADYS PEREZ Jun 13, 2025 15:26 WILMAN KENT MD Jun 14, 2025 07:56
[2025-06-14] VITALS (10 sets, daily range): BP systolic 95–114; BP diastolic 61–80; PULSE 61–101; RESP 18; TEMP 97.7–98.3; O2SAT 94–100
--- NOTE | 2025-06-14 12:50 | DVHPN2 ---
Progress Note - Dictate Date Seen: Jun 14, 2025 Medical Necessity Reason Pt with a Central, PICC or Fol: No vital signs Vital Sign Date Time Temp Pulse Resp B/P (MAP) Pulse Ox O2 Delivery O2 Flow Rate FiO2 06/14/25 12:22 97.7 77 18 107/80 (89) 98 97.7 06/13/25 23:20 Room Air 0.0 06/13/25 23:20 21 Total Intake and Output 06/13/25 06/13/25 06/14/25 15:00 23:00 07:00 Intake Total 625 ml 550 ml Balance 625 ml 550 ml medications Current Medications Medications Dose Ordered Sig/Tpoher Route Start Time Stop Time Status Last Admin Dose Admin Albuterol 2.5 mg Q6HPRN PRN NEB 06/07/25 00:30 06/10/25 16:40 2.5 MG Spironolactone 25 mg DAILY PO 06/07/25 10:00 06/14/25 09:47 25 MG Empaglifozin 10 mg DAILY PO 06/07/25 10:00 06/14/25 09:48 10 MG Aspirin 81 mg DAILY PO 06/07/25 10:00 06/14/25 09:48 81 MG Acetaminophen 650 mg Q6HP PRN PO 06/07/25 00:30 Enoxaparin Sodium 40 mg DAILY SC 06/08/25 10:00 06/14/25 09:46 40 MG Acetaminophen/ Hydrocodone Bitart 1 tab Q4HPRN PRN PO 06/07/25 17:45 06/13/25 20:55 1 TAB Doxycycline Monohydrate 100 mg Q12HR PO 06/10/25 10:00 06/14/25 09:48 100 MG Amoxicillin/ Clavulanate Potassium 875 mg Q12HR PO 06/11/25 10:00 06/14/25 09:46 875 MG Furosemide 40 mg DAILY PO 06/11/25 10:00 06/14/25 09:47 40 MG Ondansetron HCl 4 mg Q6HP PRN PO 06/11/25 09:30 Albuterol 90 mcg TID PRN IN 06/11/25 14:00 06/11/25 16:19 90 MCG Lisinopril 10 mg DAILY@1400 PO 06/14/25 14:00 Carvedilol 6.25 mg Q12H PO 06/14/25 14:00 laboratory and microbiology Laboratory Tests 06/13/25 05:09 Test 06/13/25 05:09 Range/Units Serum Glucose 80 74-106 mg/dL Assessment/Plan Impression Bilateral hilar lymphadenopathy Cough- nonspecific ? Sarcoidosis Chest pain Patient seen and examined Events Low oxygen requirements On room No acute events isolated still lung bx full report pending will obtain HIV test gen sx consult for skin lesion bx for pathology and microbiology Dietary Evaluation Review Comments: Continue current POC Expected Outcomes/Goals: To meet >75% estimated needs Lab values to improve Fu 3-5 days Plan discussed with: Patient CARLOS DELA CRUZ MD Jun 14, 2025 12:50
[2025-06-14] MEDS: LISINOPRIL 5 MG TAB PO SCH (14:00)
[2025-06-14] MEDS: CARVEDILOL 3.125 MG TAB PO SCH (14:00)
--- NOTE | 2025-06-14 16:07 | DVHPNRES ---
Progress Note Date Seen: Jun 14, 2025 Resident Creating Document: GLADYS PEREZ RESIDENT Medical Necessity Reason Pt with a Central, PICC or Fol: No Subjective Review of Systems A 34-year-old female presents for evaluation of shortness of breath. Patient reports a 2 day history of worsening of shortness of breath associated with left-sided chest pain which is shooting in nature,7/10 intensity, acute and intermittent in nature. It is associated with a productive cough which is usually yellow or clear. Reports having coughed for the last 1 month and that has increased her shortness of breath. She reports no fever but she says she felt chills, nausea, diaphoresis. She also reports running out of her Lasix a week ago for congestive heart failure. PMH: Chronic heart failure, hypertension PSH: , cholecystectomy Family history: Reviewed and noncontributory to the management of this case Social history: Patient reports smoking 1 pack per day from her teens but since the last few months she has only been having 1 pack the entire month. She also reports drinking alcohol occasionally, and having taken crystal meth smoking before. She reports she does not take it anymore but does smoke marijuana occasionally. Patient lives with her friend and is renting a place. ROS: Today the patient was seen and examined by me in the bedside. Overnight events reviewed. Patient reports feeling okay and has no new complaints. Rest of the ROS is negative Objective vital signs Vital Sign Date Time Temp Pulse Resp B/P (MAP) Pulse Ox O2 Delivery O2 Flow Rate FiO2 06/14/25 14:00 96 91/70 06/14/25 12:22 97.7 18 98 97.7 06/14/25 07:48 Room Air* 0 21 Total Intake and Output 06/13/25 06/13/25 06/14/25 15:00 23:00 07:00 Intake Total 625 ml 550 ml Balance 625 ml 550 ml medications Current Medications Medications Dose Ordered Sig/Topher Route Start Time Stop Time Status Last Admin Dose Admin Spironolactone 25 mg DAILY PO 06/07/25 10:00 06/14/25 09:47 25 MG Empaglifozin 10 mg DAILY PO 06/07/25 10:00 06/14/25 09:48 10 MG Aspirin 81 mg DAILY PO 06/07/25 10:00 06/14/25 09:48 81 MG Acetaminophen 650 mg Q6HP PRN PO 06/07/25 00:30 Enoxaparin Sodium 40 mg DAILY SC 06/08/25 10:00 06/14/25 09:46 40 MG Acetaminophen/ Hydrocodone Bitart 1 tab Q4HPRN PRN PO 06/07/25 17:45 06/14/25 13:22 1 TAB Doxycycline Monohydrate 100 mg Q12HR PO 06/10/25 10:00 06/14/25 09:48 100 MG Amoxicillin/ Clavulanate Potassium 875 mg Q12HR PO 06/11/25 10:00 06/14/25 09:46 875 MG Furosemide 40 mg DAILY PO 06/11/25 10:00 06/14/25 09:47 40 MG Ondansetron HCl 4 mg Q6HP PRN PO 06/11/25 09:30 Albuterol 90 mcg TID PRN IN 06/11/25 14:00 06/11/25 16:19 90 MCG Lisinopril 10 mg DAILY@1400 PO 06/14/25 14:00 Carvedilol 6.25 mg Q12H PO 06/14/25 14:00 Examination Pt is lying on bed General Appearance: Alert, Oriented X3, Cooperative, Severe distress due to pain HEENT: Atraumatic, Mucous membranes moist/pink Respiratory: mild crackles heard in bilateral lung moyer Cardiovascular: Regular rate, Normal S1, Normal S2, No murmurs Abdominal: No distention or organomegaly, bowel sounds heard in all 4 quadrants Extremities: No edema, Normal pulses, tenderness and swelling in bilateral limbs, soft swelling in the right rao which is tender then the right swelling Skin: No Significant rash; linear hyperpigmented scar that spans from right hip to left hip secondary to tummy tuck surgery Neuro: Normal speech, sensorimotor deficits none Psych/Mental Status: Mental status NL, Mood NL Nurse was there as head of maintenance during examination laboratory and microbiology Laboratory Tests 06/13/25 05:09 Test 06/13/25 05:09 Range/Units Serum Glucose 80 74-106 mg/dL Microbiology Date/Time Source Procedure Growth Status 06/09/25 15:30 Blood Blood Culture - Final NO GROWTH AFTER 5 DAYS OF INCUBATION. Complete 06/08/25 16:45 Nose MRSA Screen - Final Complete 06/07/25 18:27 Sputum Gram Stain - Final Complete 06/07/25 18:27 Sputum Respiratory Culture - Final Complete Labs and/or images reviewed: Labs reviewed by me, Image(s) reviewed by me Problem List/Assessment/Plan Problem List/Assessment/Plan #Shortness of breaths likely from CHF versus pneumonia; to r/o TB # chest pain ruled out ACS # Acute on chronic sys CHF(HFrEF) with EF 15% # Hx of methamphetamine abuse # ? Drug induced cardiomyopathy -telemetry -EKG showed sinus tach in but no significant ST changes -ordered a chest pain protocol with morphine, nitroglycerin -aspirin and Lipitor -Echocardiography: LV EF is only 15% with moderate to severe MR, mild posterior pericardial effusion, end-stage dilated cardiomyopathy. -Lasix begin -GDM T with Aldactone, Coreg and Jardiance -carvedilol dose change from 3.125 mg to 6.25 mg # Gram-positive bacteremia # ? Acute Gram positive / negative bacterial pneumonia -Chest x-ray shows: There is enlargement of the cardio mediastinal silhouette with prominence of the perihilar spaces, -CT angio shows: No pulmonary embolism. Diffuse confluence mediastinal and bilateral hilar lymphadenopathy. - azithromycin, ceftriaxone stopped, started on doxycycline po and augmentin po -COVID and influenza tests sent, negative -Respiratory culture sent -blood culture 1 came positive and the other negative, repeat culture ,prelim negative -MRSA test,negative # ?Sarcoidosis causing shortness of breath # ? 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 -ultrasound biopsy of 2.2 x 1.2 x 1.4 cm abnormal right supraclavicular lymph node, -ID consultation suggest: - continue current antibiotics: ceftriaxone and doxycycline, to complete a seven-day course; - Follow up on supraclavicular lymph node biopsy results. - Follow up on pending TB QuantiFERON testing. - No further acute TB workup indicated at this time due to low suspicion. - Recommend follow-up in infectious disease clinic in 2-4 weeks to review biopsy and any additional findings. - Monitor for potential dissemination or alternative diagnosis if granulomatous disease is identified. -Pulmonology consulted, suggest isolation not necessary from their standpoint as there is no symptoms of active TB and lungs are normal on CT. They are following # Hypokalemia - Repleted - Monitor lab # Right lower lobe pleural-based pulmonary nodule (1.3 cm) # partial collapse of the right middle lobe with associated atelectasis. # small to moderate pericardial effusion, monitor for now -As seen in CT scan -Pulmonology consult done, suggested- Supplemental oxygen as needed, Titrate to maintain sats 90% or above. Incentive spirometry. Obtain serum ESR, CRP and BERNADETTE level and that patient may require PET/CT scan as outpatient. -ESR elevated (90), CRP elevated (5.17), BERNADETTE enzymes pending # Polysubstance (tobacco and marijuana) use disorder -Counseled on marijuana and tobacco use cessation for more than 12 minutes GI prophylaxis: Not indicated DVT prophylaxis: Lovenox 40mg s.c daily Diet: low-sodium diet Goals of care discussed with the patient for more than 27 minute: Full code status Case discussed with Dr. Torres, patient and nurse. Plan discussed with: Patient, Other (rn) My Orders My Orders Orders - GLADYS PEREZ RESIDENT Procedure Category Date Status Time Carvedilol Tablet PHA 06/14/25 In Process (Coreg Tablet) 14:00 Dietary Evaluation Review Comments: Continue current POC Expected Outcomes/Goals: To meet >75% estimated needs Lab values to improve Fu 3-5 days Date of Service: Jun 14, 2025 Billing Provider: BRANDI TORRES MD Common Visit Codes: [id number] INP/OBS CARE(HIGH) GLADYS PEREZ Jun 14, 2025 16:07 BRANDI TORRES MD Jun 14, 2025 22:54
[2025-06-15] VITALS (10 sets, daily range): BP systolic 96–116; BP diastolic 63–79; PULSE 53–102; RESP 17–20; TEMP 97.6–98.4; O2SAT 93–100
--- NOTE | 2025-06-15 11:52 | DVHPN2 ---
Consult Progress Note Date Seen: Jun 14, 2025 Subjective Patient reports: Other (darshan having a cough , no sputum production and having troub le providing sample . has a fresh tuan on her fash , mild rash on lower extremities that is distributed sparsley ) Objective vital signs Vital Sign Date Time Temp Pulse Resp B/P (MAP) Pulse Ox O2 Delivery O2 Flow Rate FiO2 06/15/25 11:28 115/68 06/15/25 09:00 98.4 100 20 98 98.4 06/15/25 08:00 Room Air* 0 21 Total Intake and Output 06/14/25 06/14/25 06/15/25 15:00 23:00 07:00 Intake Total 600 ml 450 ml Balance 600 ml 450 ml medications Current Medications Medications Dose Ordered Sig/Topher Route Start Time Stop Time Status Last Admin Dose Admin Spironolactone 25 mg DAILY PO 06/07/25 10:00 06/15/25 11:28 25 MG Empaglifozin 10 mg DAILY PO 06/07/25 10:00 06/15/25 11:27 10 MG Aspirin 81 mg DAILY PO 06/07/25 10:00 06/15/25 11:28 81 MG Acetaminophen 650 mg Q6HP PRN PO 06/07/25 00:30 Enoxaparin Sodium 40 mg DAILY SC 06/08/25 10:00 06/15/25 11:29 40 MG Acetaminophen/ Hydrocodone Bitart 1 tab Q4HPRN PRN PO 06/07/25 17:45 06/14/25 13:22 1 TAB Doxycycline Monohydrate 100 mg Q12HR PO 06/10/25 10:00 06/15/25 11:28 100 MG Amoxicillin/ Clavulanate Potassium 875 mg Q12HR PO 06/11/25 10:00 06/15/25 11:28 875 MG Furosemide 40 mg DAILY PO 06/11/25 10:00 06/15/25 11:28 40 MG Ondansetron HCl 4 mg Q6HP PRN PO 06/11/25 09:30 Albuterol 90 mcg TID PRN IN 06/11/25 14:00 06/11/25 16:19 90 MCG Lisinopril 10 mg DAILY@1400 PO 06/14/25 14:00 Carvedilol 6.25 mg Q12H PO 06/14/25 14:00 laboratory and microbiology Laboratory Tests 06/13/25 05:09 Test 06/13/25 05:09 Range/Units Serum Glucose 80 74-106 mg/dL Problem List/Assessment/Plan Problems(with codes): (1) Diastolic heart failure (2) Elevated d-dimer (3) Acute dyspnea (4) Community acquired bacterial pneumonia Problem List/Assessment/Plan ASSESSMENT AND PLAN: ID Problem List: \-- Recurrent pulmonary edema \-- Shortness of breath \-- Chest pain \-- Hilar/mediastinal lymphadenopathy \-- Supraclavicular lymphadenopathy \-- Cardiomegaly \-- Pericardial effusion \-- Pleural-based nodule right lower lobe \-- Pulmonary embolism \-- Awaiting supraclavicular lymph node biopsy results Assessment This is a 34 y.o. female with a history of recurrent pulmonary edema, presenting with two days of worsening shortness of breath, left-sided pressure-like chest pain, and nonproductive cough. She reports being out of her Lasix for a week prior to admission. On admission, patient was tachycardic, and noted to have enlarged cervical and supraclavicular lymph nodes. Home medications were restarted and echocardiogram obtained. Imaging findings (CXR, CTA chest) are notable for: -Enlargement of the cardiomediastinal silhouette -Prominence of perihilar spaces -Cardiomegaly -Small to moderate pericardial effusion -Right lower lobe pleural-based pulmonary nodule (1.3 cm) -Partial collapse of right middle lobe -Diffuse mediastinal and basilar hilar lymphadenopathy -Pulmonary embolism Biopsies and laboratory findings: -Initial blood cultures positive for Staph epidermidis in 1/4 bottles, likely contaminant; subsequent cultures negative. -Sputum culture: normal pharyngeal arturo. -TB QuantiFERON pending, HIV/Influenza/COVID-19 all negative. -Soft tissue ultrasound shows abnormal right supraclavicular lymph node (2.2 x 1.2 x 1.4 cm). Ultrasound-guided biopsy performed, results pending. -No evidence of DVT on Doppler ultrasound. 06/13: awaiting to get formal TB rule out , history of homelessness and weight loss . awaiting formal biopsy results 06/14: suspect dermatified infection of lower extremities , treat with topical clotrimazole Plan: - f/u on pending sputum and biopsy results - send for HIV testing - hold off empiric Tb therapy \-- Continue current antibiotics: ceftriaxone and doxycycline, to complete a seven-day course. \-- Follow up on supraclavicular lymph node biopsy results. \-- Follow up on pending TB QuantiFERON testing. \-- No further acute TB workup indicated at this time due to low suspicion. \-- Recommend follow-up in infectious disease clinic in 2-4 weeks to review biopsy and any additional findings. \-- Monitor for potential dissemination or alternative diagnosis if granulomatous disease is identified. \-- Cardiology to manage pericardial effusion and recurrent pulmonary edema; reinforce adherence to medications including Lasix. \-- Continue to monitor for new symptoms or deterioration. Isolation Precautions: TB, droplet and contact precautions Plan discussed with: Other Dietary Evaluation Review Comments: Continue current POC Expected Outcomes/Goals: To meet >75% estimated needs Lab values to improve Fu 3-5 days MIKY DAVIS MD Jun 15, 2025 11:52
--- NOTE | 2025-06-15 11:52 | DVHPN2 ---
Consult Progress Note Date Seen: Jun 13, 2025 Subjective Patient reports: Other (endorses history of homelessness prior to living with zander , homeless for several years and at that time was doing methamphetamines smoking , no injections ) Objective vital signs Vital Sign Date Time Temp Pulse Resp B/P (MAP) Pulse Ox O2 Delivery O2 Flow Rate FiO2 06/15/25 11:28 115/68 06/15/25 09:00 98.4 100 20 98 98.4 06/15/25 08:00 Room Air* 0 21 Total Intake and Output 06/14/25 06/14/25 06/15/25 15:00 23:00 07:00 Intake Total 600 ml 450 ml Balance 600 ml 450 ml medications Current Medications Medications Dose Ordered Sig/Topher Route Start Time Stop Time Status Last Admin Dose Admin Spironolactone 25 mg DAILY PO 06/07/25 10:00 06/15/25 11:28 25 MG Empaglifozin 10 mg DAILY PO 06/07/25 10:00 06/15/25 11:27 10 MG Aspirin 81 mg DAILY PO 06/07/25 10:00 06/15/25 11:28 81 MG Acetaminophen 650 mg Q6HP PRN PO 06/07/25 00:30 Enoxaparin Sodium 40 mg DAILY SC 06/08/25 10:00 06/15/25 11:29 40 MG Acetaminophen/ Hydrocodone Bitart 1 tab Q4HPRN PRN PO 06/07/25 17:45 06/14/25 13:22 1 TAB Doxycycline Monohydrate 100 mg Q12HR PO 06/10/25 10:00 06/15/25 11:28 100 MG Amoxicillin/ Clavulanate Potassium 875 mg Q12HR PO 06/11/25 10:00 06/15/25 11:28 875 MG Furosemide 40 mg DAILY PO 06/11/25 10:00 06/15/25 11:28 40 MG Ondansetron HCl 4 mg Q6HP PRN PO 06/11/25 09:30 Albuterol 90 mcg TID PRN IN 06/11/25 14:00 06/11/25 16:19 90 MCG Lisinopril 10 mg DAILY@1400 PO 06/14/25 14:00 Carvedilol 6.25 mg Q12H PO 06/14/25 14:00 laboratory and microbiology Laboratory Tests 06/13/25 05:09 Test 06/13/25 05:09 Range/Units Serum Glucose 80 74-106 mg/dL Problem List/Assessment/Plan Problems(with codes): (1) Community acquired bacterial pneumonia (2) Acute dyspnea (3) Elevated d-dimer (4) Diastolic heart failure Problem List/Assessment/Plan ASSESSMENT AND PLAN: ID Problem List: \-- Recurrent pulmonary edema \-- Shortness of breath \-- Chest pain \-- Hilar/mediastinal lymphadenopathy \-- Supraclavicular lymphadenopathy \-- Cardiomegaly \-- Pericardial effusion \-- Pleural-based nodule right lower lobe \-- Pulmonary embolism \-- Awaiting supraclavicular lymph node biopsy results Assessment This is a 34 y.o. female with a history of recurrent pulmonary edema, presenting with two days of worsening shortness of breath, left-sided pressure-like chest pain, and nonproductive cough. She reports being out of her Lasix for a week prior to admission. On admission, patient was tachycardic, and noted to have enlarged cervical and supraclavicular lymph nodes. Home medications were restarted and echocardiogram obtained. Imaging findings (CXR, CTA chest) are notable for: -Enlargement of the cardiomediastinal silhouette -Prominence of perihilar spaces -Cardiomegaly -Small to moderate pericardial effusion -Right lower lobe pleural-based pulmonary nodule (1.3 cm) -Partial collapse of right middle lobe -Diffuse mediastinal and basilar hilar lymphadenopathy -Pulmonary embolism Biopsies and laboratory findings: -Initial blood cultures positive for Staph epidermidis in 1/4 bottles, likely contaminant; subsequent cultures negative. -Sputum culture: normal pharyngeal arturo. -TB QuantiFERON pending, HIV/Influenza/COVID-19 all negative. -Soft tissue ultrasound shows abnormal right supraclavicular lymph node (2.2 x 1.2 x 1.4 cm). Ultrasound-guided biopsy performed, results pending. -No evidence of DVT on Doppler ultrasound. 06/13: awaiting to get formal TB rule out , history of homelessness and weight loss . awaiting formal biopsy results Plan: - f/u on pending sputum and biopsy results - send for HIV testing - hold off empiric Tb therapy \-- Continue current antibiotics: ceftriaxone and doxycycline, to complete a seven-day course. \-- Follow up on supraclavicular lymph node biopsy results. \-- Follow up on pending TB QuantiFERON testing. \-- No further acute TB workup indicated at this time due to low suspicion. \-- Recommend follow-up in infectious disease clinic in 2-4 weeks to review biopsy and any additional findings. \-- Monitor for potential dissemination or alternative diagnosis if granulomatous disease is identified. \-- Cardiology to manage pericardial effusion and recurrent pulmonary edema; reinforce adherence to medications including Lasix. \-- Continue to monitor for new symptoms or deterioration. Isolation Precautions: TB, droplet and contact precautions Plan discussed with: Other Dietary Evaluation Review Comments: Continue current POC Expected Outcomes/Goals: To meet >75% estimated needs Lab values to improve Fu 3-5 days MIKY DAVIS MD Jun 15, 2025 11:52
--- NOTE | 2025-06-15 11:54 | DVHPN2 ---
Consult Progress Note Date Seen: Jun 15, 2025 Subjective Patient reports: Other (reports 20lb weight loss, no fevers or chills, has a cough but not productive . patient says her rash is chronic and states feeling fatigue and ill towards end of last year however feels fine currently . informed patient lymph node biopsy is mositive for TB , MTB and patient will require close monitoring and treatment as well as isolation until department of public health clears her . likely acquired infection when patient was homeless ) Objective vital signs Vital Sign Date Time Temp Pulse Resp B/P (MAP) Pulse Ox O2 Delivery O2 Flow Rate FiO2 06/15/25 11:28 115/68 06/15/25 09:00 98.4 100 20 98 98.4 06/15/25 08:00 Room Air* 0 21 Total Intake and Output 06/14/25 06/14/25 06/15/25 15:00 23:00 07:00 Intake Total 600 ml 450 ml Balance 600 ml 450 ml medications Current Medications Medications Dose Ordered Sig/Topher Route Start Time Stop Time Status Last Admin Dose Admin Spironolactone 25 mg DAILY PO 06/07/25 10:00 06/15/25 11:28 25 MG Empaglifozin 10 mg DAILY PO 06/07/25 10:00 06/15/25 11:27 10 MG Aspirin 81 mg DAILY PO 06/07/25 10:00 06/15/25 11:28 81 MG Acetaminophen 650 mg Q6HP PRN PO 06/07/25 00:30 Enoxaparin Sodium 40 mg DAILY SC 06/08/25 10:00 06/15/25 11:29 40 MG Acetaminophen/ Hydrocodone Bitart 1 tab Q4HPRN PRN PO 06/07/25 17:45 06/14/25 13:22 1 TAB Doxycycline Monohydrate 100 mg Q12HR PO 06/10/25 10:00 06/15/25 11:28 100 MG Amoxicillin/ Clavulanate Potassium 875 mg Q12HR PO 06/11/25 10:00 06/15/25 11:28 875 MG Furosemide 40 mg DAILY PO 06/11/25 10:00 06/15/25 11:28 40 MG Ondansetron HCl 4 mg Q6HP PRN PO 06/11/25 09:30 Albuterol 90 mcg TID PRN IN 06/11/25 14:00 06/11/25 16:19 90 MCG Lisinopril 10 mg DAILY@1400 PO 06/14/25 14:00 Carvedilol 6.25 mg Q12H PO 06/14/25 14:00 laboratory and microbiology Laboratory Tests 06/13/25 05:09 Test 06/13/25 05:09 Range/Units Serum Glucose 80 74-106 mg/dL Problem List/Assessment/Plan Problems(with codes): (1) Community acquired bacterial pneumonia (2) Acute dyspnea (3) Elevated d-dimer (4) Diastolic heart failure Problem List/Assessment/Plan ASSESSMENT AND PLAN: ID Problem List: \-- Recurrent pulmonary edema \-- Shortness of breath \-- Chest pain \-- Hilar/mediastinal lymphadenopathy \-- Supraclavicular lymphadenopathy \-- Cardiomegaly \-- Pericardial effusion \-- Pleural-based nodule right lower lobe \-- Pulmonary embolism \-- Awaiting supraclavicular lymph node biopsy results Assessment This is a 34 y.o. female with a history of recurrent pulmonary edema, presenting with two days of worsening shortness of breath, left-sided pressure-like chest pain, and nonproductive cough. She reports being out of her Lasix for a week prior to admission. On admission, patient was tachycardic, and noted to have enlarged cervical and supraclavicular lymph nodes. Home medications were restarted and echocardiogram obtained. Imaging findings (CXR, CTA chest) are notable for: -Enlargement of the cardiomediastinal silhouette -Prominence of perihilar spaces -Cardiomegaly -Small to moderate pericardial effusion -Right lower lobe pleural-based pulmonary nodule (1.3 cm) -Partial collapse of right middle lobe -Diffuse mediastinal and basilar hilar lymphadenopathy -Pulmonary embolism Biopsies and laboratory findings: -Initial blood cultures positive for Staph epidermidis in 1/4 bottles, likely contaminant; subsequent cultures negative. -Sputum culture: normal pharyngeal arturo. -TB QuantiFERON pending, HIV/Influenza/COVID-19 all negative. -Soft tissue ultrasound shows abnormal right supraclavicular lymph node (2.2 x 1.2 x 1.4 cm). Ultrasound-guided biopsy performed, results pending. -No evidence of DVT on Doppler ultrasound. 06/13: awaiting to get formal TB rule out , history of homelessness and weight loss . 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 HIV test negative, check test prior to starting RIPE Plan: - f/u on pending sputum and biopsy results - send for HIV testing - hold off empiric Tb therapy \-- Continue current antibiotics: ceftriaxone and doxycycline, to complete a seven-day course. \-- Follow up on supraclavicular lymph node biopsy results. \-- Follow up on pending TB QuantiFERON testing. \-- No further acute TB workup indicated at this time due to low suspicion. \-- Recommend follow-up in infectious disease clinic in 2-4 weeks to review biopsy and any additional findings. \-- Monitor for potential dissemination or alternative diagnosis if granulomatous disease is identified. \-- Cardiology to manage pericardial effusion and recurrent pulmonary edema; reinforce adherence to medications including Lasix. \-- Continue to monitor for new symptoms or deterioration. Isolation Precautions: TB, droplet and contact precautions Plan discussed with: Other Dietary Evaluation Review Comments: Continue current POC Expected Outcomes/Goals: To meet >75% estimated needs Lab values to improve Fu 3-5 days MIKY DAVIS MD Jun 15, 2025 11:54
[2025-06-15] MEDS: ONDANSETRON ODT 4 MG TAB PO PRN (12:33)
--- NOTE | 2025-06-15 13:40 | DVHPNRES ---
Progress Note Date Seen: Jun 15, 2025 Resident Creating Document: GLADYS PEREZ RESIDENT Medical Necessity Reason Pt with a Central, PICC or Fol: No Subjective Review of Systems A 34-year-old female presents for evaluation of shortness of breath. Patient reports a 2 day history of worsening of shortness of breath associated with left-sided chest pain which is shooting in nature,7/10 intensity, acute and intermittent in nature. It is associated with a productive cough which is usually yellow or clear. Reports having coughed for the last 1 month and that has increased her shortness of breath. She reports no fever but she says she felt chills, nausea, diaphoresis. She also reports running out of her Lasix a week ago for congestive heart failure. PMH: Chronic heart failure, hypertension PSH: , cholecystectomy Family history: Reviewed and noncontributory to the management of this case Social history: Patient reports smoking 1 pack per day from her teens but since the last few months she has only been having 1 pack the entire month. She also reports drinking alcohol occasionally, and having taken crystal meth smoking before. She reports she does not take it anymore but does smoke marijuana occasionally. Patient lives with her friend and is renting a place. ROS: Today the patient was seen and examined by me in the bedside. Overnight events reviewed. patient's Q gold has come back and is positive for tuberculosis. She has no new complaints today. Rest of the ROS is negative Objective vital signs Vital Sign Date Time Temp Pulse Resp B/P (MAP) Pulse Ox O2 Delivery O2 Flow Rate FiO2 06/15/25 13:11 98.4 98 20 103/79 (87) 100 98.4 06/15/25 10:00 Room Air* 0 21 Total Intake and Output 06/14/25 06/14/25 06/15/25 15:00 23:00 07:00 Intake Total 600 ml 450 ml Balance 600 ml 450 ml medications Current Medications Medications Dose Ordered Sig/Topher Route Start Time Stop Time Status Last Admin Dose Admin Spironolactone 25 mg DAILY PO 06/07/25 10:00 06/15/25 11:28 25 MG Empaglifozin 10 mg DAILY PO 06/07/25 10:00 06/15/25 11:27 10 MG Aspirin 81 mg DAILY PO 06/07/25 10:00 06/15/25 11:28 81 MG Acetaminophen 650 mg Q6HP PRN PO 06/07/25 00:30 Enoxaparin Sodium 40 mg DAILY SC 06/08/25 10:00 06/15/25 11:29 40 MG Acetaminophen/ Hydrocodone Bitart 1 tab Q4HPRN PRN PO 06/07/25 17:45 06/14/25 13:22 1 TAB Doxycycline Monohydrate 100 mg Q12HR PO 06/10/25 10:00 06/15/25 11:28 100 MG Amoxicillin/ Clavulanate Potassium 875 mg Q12HR PO 06/11/25 10:00 06/15/25 11:28 875 MG Furosemide 40 mg DAILY PO 06/11/25 10:00 06/15/25 11:28 40 MG Ondansetron HCl 4 mg Q6HP PRN PO 06/11/25 09:30 06/15/25 12:33 4 MG Albuterol 90 mcg TID PRN IN 06/11/25 14:00 06/11/25 16:19 90 MCG Lisinopril 10 mg DAILY@1400 PO 06/14/25 14:00 Carvedilol 6.25 mg Q12H PO 06/14/25 14:00 laboratory and microbiology Laboratory Tests 06/13/25 05:09 Test 06/13/25 05:09 Range/Units Serum Glucose 80 74-106 mg/dL Microbiology Date/Time Source Procedure Growth Status 06/09/25 15:30 Blood Blood Culture - Final NO GROWTH AFTER 5 DAYS OF INCUBATION. Complete 06/08/25 16:45 Nose MRSA Screen - Final Complete 06/07/25 18:27 Sputum Gram Stain - Final Complete 06/07/25 18:27 Sputum Respiratory Culture - Final Complete Labs and/or images reviewed: Labs reviewed by me, Image(s) reviewed by me Problem List/Assessment/Plan Problem List/Assessment/Plan #Shortness of breaths likely from CHF versus pneumonia; to r/o TB # chest pain ruled out ACS # Acute on chronic sys CHF(HFrEF) with EF 15% # Hx of methamphetamine abuse # ? Drug induced cardiomyopathy -telemetry -EKG showed sinus tach in but no significant ST changes -ordered a chest pain protocol with morphine, nitroglycerin -aspirin and Lipitor -Echocardiography: LV EF is only 15% with moderate to severe MR, mild posterior pericardial effusion, end-stage dilated cardiomyopathy. -Lasix begin -GDM T with Aldactone, Coreg and Jardiance -carvedilol dose change from 3.125 mg to 6.25 mg # Gram-positive bacteremia # ? Acute Gram positive / negative bacterial pneumonia -Chest x-ray shows: There is enlargement of the cardio mediastinal silhouette with prominence of the perihilar spaces, -CT angio shows: No pulmonary embolism. Diffuse confluence mediastinal and bilateral hilar lymphadenopathy. - azithromycin, ceftriaxone stopped, started on doxycycline po and augmentin po -COVID and influenza tests sent, negative -Respiratory culture sent -blood culture 1 came positive and the other negative, repeat culture ,prelim negative -MRSA test,negative # ?Sarcoidosis causing shortness of breath # ? Erythema nodosum # ? TB, preliminary pathology report showed necrotizing granulomas - QuantiFERON test POSITIVE - AFB culture/smear, pending -Isolation precautions -TYLER panel - negative -RF -12.9 normal levels -DVT scan, results showed: No right or left femoropopliteal venous thrombosis. 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 check test prior to starting RIPE # Hypokalemia-resolving - Repleted - Monitor lab # Right lower lobe pleural-based pulmonary nodule (1.3 cm) # partial collapse of the right middle lobe with associated atelectasis. # small to moderate pericardial effusion, monitor for now -As seen in CT scan -Pulmonology consult done, suggested- Supplemental oxygen as needed, Titrate to maintain sats 90% or above. Incentive spirometry. Obtain serum ESR, CRP and BERNADETTE level and that patient may require PET/CT scan as outpatient. -ESR elevated (90), CRP elevated (5.17), BERNADETTE enzymes pending # Polysubstance (tobacco and marijuana) use disorder -Counseled on marijuana and tobacco use cessation for more than 12 minutes GI prophylaxis: Not indicated DVT prophylaxis: Lovenox 40mg s.c daily Diet: low-sodium diet Goals of care discussed with the patient for more than 27 minute: Full code status Case discussed with Dr. Chaudhry, patient and nurse. Plan discussed with: Patient, Other (rn) My Orders My Orders Orders - GLADYS PEREZ RESIDENT Procedure Category Date Status Time Send Out LAB 06/16/25 Logged Miscellaneous Lab Ref 05:00 Dietary Evaluation Review Comments: Continue current POC Expected Outcomes/Goals: To meet >75% estimated needs Lab values to improve Fu 3-5 days Date of Service: Jun 15, 2025 Billing Provider: BRANDI CHAUDHRY MD Common Visit Codes: [id number] INP/OBS CARE(HIGH) GLADYS PEREZ Jun 15, 2025 13:39 BRANDI CHAUDHRY MD Jun 15, 2025 17:48
--- NOTE | 2025-06-15 13:46 | DVHPN2 ---
Progress Note - Dictate Date Seen: Jun 15, 2025 Medical Necessity Reason Pt with a Central, PICC or Fol: No vital signs Vital Sign Date Time Temp Pulse Resp B/P (MAP) Pulse Ox O2 Delivery O2 Flow Rate FiO2 06/15/25 13:11 98.4 98 20 103/79 (87) 100 98.4 06/15/25 10:00 Room Air* 0 21 Total Intake and Output 06/14/25 06/14/25 06/15/25 15:00 23:00 07:00 Intake Total 600 ml 450 ml Balance 600 ml 450 ml medications Current Medications Medications Dose Ordered Sig/Topher Route Start Time Stop Time Status Last Admin Dose Admin Spironolactone 25 mg DAILY PO 06/07/25 10:00 06/15/25 11:28 25 MG Empaglifozin 10 mg DAILY PO 06/07/25 10:00 06/15/25 11:27 10 MG Aspirin 81 mg DAILY PO 06/07/25 10:00 06/15/25 11:28 81 MG Acetaminophen 650 mg Q6HP PRN PO 06/07/25 00:30 Enoxaparin Sodium 40 mg DAILY SC 06/08/25 10:00 06/15/25 11:29 40 MG Acetaminophen/ Hydrocodone Bitart 1 tab Q4HPRN PRN PO 06/07/25 17:45 06/14/25 13:22 1 TAB Doxycycline Monohydrate 100 mg Q12HR PO 06/10/25 10:00 06/15/25 11:28 100 MG Amoxicillin/ Clavulanate Potassium 875 mg Q12HR PO 06/11/25 10:00 06/15/25 11:28 875 MG Furosemide 40 mg DAILY PO 06/11/25 10:00 06/15/25 11:28 40 MG Ondansetron HCl 4 mg Q6HP PRN PO 06/11/25 09:30 06/15/25 12:33 4 MG Albuterol 90 mcg TID PRN IN 06/11/25 14:00 06/11/25 16:19 90 MCG Lisinopril 10 mg DAILY@1400 PO 06/14/25 14:00 Carvedilol 6.25 mg Q12H PO 06/14/25 14:00 laboratory and microbiology Laboratory Tests 06/13/25 05:09 Test 06/13/25 05:09 Range/Units Serum Glucose 80 74-106 mg/dL Assessment/Plan Impression Bilateral hilar lymphadenopathy Cough- nonspecific ? Sarcoidosis Chest pain Patient seen and examined Events Low oxygen requirements On room Appears to have scaly skin to lateral thighs S/p lung biopsy, pathology showing AFB Sputum samples pending x3 Interferon positive Management Supplemental oxygen as needed Titrate to maintain sats 90% or above Incentive spirometry Follow up with ID for antituberculosis therapy F/u general surgery for skin lesion bx for pathology and microbiology Dietary Evaluation Review Comments: Continue current POC Expected Outcomes/Goals: To meet >75% estimated needs Lab values to improve Fu 3-5 days Plan discussed with: Patient CARLOS DELA CRUZ MD Jun 15, 2025 13:46
[2025-06-15] MEDS ORDERED: ETHAMBUTOL HCL 400 MG TAB PO SCH (20:00)
[2025-06-15] MEDS ORDERED: ISONIAZID 300 MG TAB PO SCH (20:00)
[2025-06-15] MEDS ORDERED: rifAMPin 300 MG CAP PO SCH (20:00)
[2025-06-15] MEDS ORDERED: PYRIDOXINE HCL 50 MG TAB PO SCH (20:00)
[2025-06-15] MEDS ORDERED: PYRAZINAMIDE 500 MG TAB PO SCH (20:00)
[2025-06-15] MEDS: ISONIAZID 300 MG TAB PO SCH (22:00)
[2025-06-15] MEDS: rifAMPin 300 MG CAP PO SCH (22:00)
[2025-06-15] MEDS: PYRIDOXINE HCL 50 MG TAB PO SCH (22:00)
[2025-06-15] MEDS: ETHAMBUTOL HCL 400 MG TAB PO SCH (22:00)
[2025-06-15] MEDS: PYRAZINAMIDE 500 MG TAB PO SCH (22:00)
[2025-06-16] VITALS (12 sets, daily range): BP systolic 84–118; BP diastolic 59–78; PULSE 75–107; RESP 17–23; TEMP 97.2–98.6; O2SAT 95–100
[2025-06-16 07:15] LABS: Albumin 4.3 g/dL (3.2-4.8); Alkaline Phosphatase 83.0 U/L (46-116); Bilirubin, Direct 0.2 mg/dL (<0.3); Bilirubin, Total 0.4 mg/dL (0.2-1.0)
[2025-06-16 07:26] LABS: Alanine Aminotransferase 44.0 U/L (7-40); Total Protein 8.4 g/dL (5.7-8.2)
[2025-06-16] MEDS: ETHAMBUTOL HCL 400 MG TAB PO SCH (14:08)
[2025-06-16] MEDS: ISONIAZID 300 MG TAB PO SCH (14:09)
[2025-06-16] MEDS: PYRAZINAMIDE 500 MG TAB PO SCH (14:09)
--- NOTE | 2025-06-16 14:11 | DVHPN2 ---
Progress Note - Dictate Date Seen: Jun 16, 2025 Medical Necessity Reason Pt with a Central, PICC or Fol: No vital signs Vital Sign Date Time Temp Pulse Resp B/P (MAP) Pulse Ox O2 Delivery O2 Flow Rate FiO2 06/16/25 14:00 104 99/67 06/16/25 12:31 98.6 23 100 98.6 06/16/25 10:00 Room Air 0.0 06/16/25 10:00 21 Total Intake and Output 06/15/25 06/15/25 06/16/25 15:00 23:00 07:00 Intake Total 1200 ml 1000 ml Balance 1200 ml 1000 ml medications Current Medications Medications Dose Ordered Sig/Topher Route Start Time Stop Time Status Last Admin Dose Admin Spironolactone 25 mg DAILY PO 06/07/25 10:00 06/16/25 10:37 25 MG Empaglifozin 10 mg DAILY PO 06/07/25 10:00 06/15/25 11:27 10 MG Aspirin 81 mg DAILY PO 06/07/25 10:00 06/16/25 10:42 81 MG Acetaminophen 650 mg Q6HP PRN PO 06/07/25 00:30 Enoxaparin Sodium 40 mg DAILY SC 06/08/25 10:00 06/15/25 11:29 40 MG Acetaminophen/ Hydrocodone Bitart 1 tab Q4HPRN PRN PO 06/07/25 17:45 06/16/25 02:29 1 TAB Furosemide 40 mg DAILY PO 06/11/25 10:00 06/16/25 10:40 40 MG Ondansetron HCl 4 mg Q6HP PRN PO 06/11/25 09:30 Albuterol 90 mcg TID PRN IN 06/11/25 14:00 06/11/25 16:19 90 MCG Lisinopril 10 mg DAILY@1400 PO 06/14/25 14:00 Carvedilol 6.25 mg Q12H PO 06/14/25 14:00 Rifampin 600 mg DAILY PO 06/15/25 22:00 06/16/25 10:37 600 MG Pyridoxine HCl 50 mg DAILY PO 06/15/25 22:00 06/16/25 10:39 50 MG Ethambutol HCl 1,600 mg DAILY PO 06/16/25 13:00 Isoniazid 300 mg DAILY PO 06/16/25 13:00 Pyrazinamide 2,000 mg DAILY PO 06/16/25 13:00 laboratory and microbiology Laboratory Tests 06/13/25 05:09 Test 06/13/25 05:09 Range/Units Serum Glucose 80 74-106 mg/dL Assessment/Plan Impression Bilateral hilar lymphadenopathy Cough- nonspecific ? Sarcoidosis Chest pain Patient seen and examined Events Low oxygen requirements On room No acute events Appears to have scaly skin to lateral thighs S/p skin biopsy, pathology pending S/p lung biopsy, pathology showing AFB Sputum samples pending x3 Interferon positive Management Supplemental oxygen as needed Titrate to maintain sats 90% or above Incentive spirometry Follow up with ID for antituberculosis therapy F/u general surgery for skin lesion bx for pathology and microbiology Dietary Evaluation Review Comments: Continue current POC Expected Outcomes/Goals: To meet >75% estimated needs Lab values to improve Fu 3-5 days Plan discussed with: Patient CARLOS DELA CRUZ MD Jun 16, 2025 14:11
--- NOTE | 2025-06-16 16:26 | DVHPNRES ---
Progress Note Date Seen: Jun 16, 2025 Resident Creating Document: GLADYS PEREZ RESIDENT Medical Necessity Reason Pt with a Central, PICC or Fol: No Subjective Review of Systems A 34-year-old female presents for evaluation of shortness of breath. Patient reports a 2 day history of worsening of shortness of breath associated with left-sided chest pain which is shooting in nature,7/10 intensity, acute and intermittent in nature. It is associated with a productive cough which is usually yellow or clear. Reports having coughed for the last 1 month and that has increased her shortness of breath. She reports no fever but she says she felt chills, nausea, diaphoresis. She also reports running out of her Lasix a week ago for congestive heart failure. PMH: Chronic heart failure, hypertension PSH: , cholecystectomy Family history: Reviewed and noncontributory to the management of this case Social history: Patient reports smoking 1 pack per day from her teens but since the last few months she has only been having 1 pack the entire month. She also reports drinking alcohol occasionally, and having taken crystal meth smoking before. She reports she does not take it anymore but does smoke marijuana occasionally. Patient lives with her friend and is renting a place. ROS: Today the patient was seen and examined by me in the bedside. Overnight events reviewed. patient's Q gold has come back and is positive for tuberculosis. She has no new complaints today. Rest of the ROS is negative Objective vital signs Vital Sign Date Time Temp Pulse Resp B/P (MAP) Pulse Ox O2 Delivery O2 Flow Rate FiO2 06/16/25 14:00 104 99/67 06/16/25 12:31 98.6 23 100 98.6 06/16/25 10:00 Room Air 0.0 06/16/25 10:00 21 Total Intake and Output 06/15/25 06/15/25 06/16/25 15:00 23:00 07:00 Intake Total 1200 ml 1000 ml Balance 1200 ml 1000 ml medications Current Medications Medications Dose Ordered Sig/Topher Route Start Time Stop Time Status Last Admin Dose Admin Spironolactone 25 mg DAILY PO 06/07/25 10:00 06/16/25 10:37 25 MG Empaglifozin 10 mg DAILY PO 06/07/25 10:00 06/15/25 11:27 10 MG Aspirin 81 mg DAILY PO 06/07/25 10:00 06/16/25 10:42 81 MG Acetaminophen 650 mg Q6HP PRN PO 06/07/25 00:30 Enoxaparin Sodium 40 mg DAILY SC 06/08/25 10:00 06/15/25 11:29 40 MG Acetaminophen/ Hydrocodone Bitart 1 tab Q4HPRN PRN PO 06/07/25 17:45 06/16/25 02:29 1 TAB Furosemide 40 mg DAILY PO 06/11/25 10:00 06/16/25 10:40 40 MG Ondansetron HCl 4 mg Q6HP PRN PO 06/11/25 09:30 Albuterol 90 mcg TID PRN IN 06/11/25 14:00 06/11/25 16:19 90 MCG Lisinopril 10 mg DAILY@1400 PO 06/14/25 14:00 Carvedilol 6.25 mg Q12H PO 06/14/25 14:00 Rifampin 600 mg DAILY PO 06/15/25 22:00 06/16/25 10:37 600 MG Pyridoxine HCl 50 mg DAILY PO 06/15/25 22:00 06/16/25 10:39 50 MG Ethambutol HCl 1,600 mg DAILY PO 06/16/25 13:00 06/16/25 14:08 1,600 MG Isoniazid 300 mg DAILY PO 06/16/25 13:00 06/16/25 14:09 300 MG Pyrazinamide 2,000 mg DAILY PO 06/16/25 13:00 06/16/25 14:09 2,000 MG Examination Pt is lying on bed General Appearance: Alert, Oriented X3, Cooperative, Not in acute distress HEENT: Atraumatic, Mucous membranes moist/pink Respiratory: Clear to auscultation, Normal air movement, No added sounds Cardiovascular: Regular rate, Normal S1, Normal S2, No murmurs Abdominal: Active bowel sounds, Soft, no distention, no tenderness Extremities: No edema, Normal pulses, No tenderness/swelling Skin: No Significant rash, except past surgical scars Neuro: Normal speech, sensorimotor deficits none Psych/Mental Status: Mental status NL, Mood NL Nurse was there as wood floor layer during examination laboratory and microbiology Laboratory Tests 06/13/25 05:09 Test 06/13/25 05:09 Range/Units Serum Glucose 80 74-106 mg/dL Microbiology Date/Time Source Procedure Growth Status 06/15/25 07:00 Sputum AFB Broth Culture Pending Resulted 06/15/25 07:00 Sputum - Final Resulted 06/15/25 07:00 Sputum - Final Resulted 06/15/25 07:00 Sputum Acid Fast Bacilli Culture Pending Resulted 06/09/25 15:30 Blood Blood Culture - Final NO GROWTH AFTER 5 DAYS OF INCUBATION. Complete 06/08/25 16:45 Nose MRSA Screen - Final Complete Labs and/or images reviewed: Labs reviewed by me, Image(s) reviewed by me Problem List/Assessment/Plan Problem List/Assessment/Plan #Shortness of breaths likely from CHF versus pneumonia; to r/o TB # chest pain ruled out ACS # Acute on chronic sys CHF(HFrEF) with EF 15% # Hx of methamphetamine abuse # ? Drug induced cardiomyopathy -telemetry -EKG showed sinus tach in but no significant ST changes -ordered a chest pain protocol with morphine, nitroglycerin -aspirin and Lipitor -Echocardiography: LV EF is only 15% with moderate to severe MR, mild posterior pericardial effusion, end-stage dilated cardiomyopathy. -Lasix begin -GDM T with Aldactone, Coreg and Jardiance -carvedilol dose change from 3.125 mg to 6.25 mg # Gram-positive bacteremia # ? Acute Gram positive / negative bacterial pneumonia -Chest x-ray shows: There is enlargement of the cardio mediastinal silhouette with prominence of the perihilar spaces, -CT angio shows: No pulmonary embolism. Diffuse confluence mediastinal and bilateral hilar lymphadenopathy. - azithromycin, ceftriaxone stopped, started on doxycycline po and augmentin po -COVID and influenza tests sent, negative -Respiratory culture sent -blood culture 1 came positive and the other negative, repeat culture ,prelim negative -MRSA test,negative # ?Sarcoidosis causing shortness of breath # ? Erythema nodosum # ? TB, preliminary pathology report showed necrotizing granulomas - QuantiFERON test POSITIVE - AFB culture/smear, pending -Isolation precautions -TYLER panel - negative -RF -12.9 normal levels -DVT scan, results showed: No right or left femoropopliteal venous thrombosis. 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 - test, negative -RIPE therapy started -Sputum samples pending x3 -Interferon positive # Hypokalemia-resolving - Repleted - Monitor lab # Right lower lobe pleural-based pulmonary nodule (1.3 cm) # partial collapse of the right middle lobe with associated atelectasis. # small to moderate pericardial effusion, monitor for now -As seen in CT scan -Pulmonology consult done, suggested- Supplemental oxygen as needed, Titrate to maintain sats 90% or above. Incentive spirometry. Obtain serum ESR, CRP and BERNADETTE level and that patient may require PET/CT scan as outpatient. -ESR elevated (90), CRP elevated (5.17), BERNADTETE enzymes pending # Polysubstance (tobacco and marijuana) use disorder -Counseled on marijuana and tobacco use cessation for more than 12 minutes GI prophylaxis: Not indicated DVT prophylaxis: Lovenox 40mg s.c daily Diet: low-sodium diet Goals of care discussed with the patient for more than 27 minute: Full code status Case discussed with Dr. Chaudhry, patient and nurse. Plan discussed with: Patient, Other (rn) My Orders My Orders Orders - GLADYS PEREZ RESIDENT Procedure Category Date Status Time Initiate Vte VÍCTOR 06/16/25 In Process Prophylaxis 10:22 Dietary Evaluation Review Comments: Continue current POC Expected Outcomes/Goals: To meet >75% estimated needs Lab values to improve Fu 3-5 days Date of Service: Jun 16, 2025 Billing Provider: BRANDI CHAUDHRY MD Common Visit Codes: [id number] INP/OBS CARE(HIGH) GLADYS PEREZ Jun 16, 2025 16:26 BRANDI CHAUDHRY MD Jun 16, 2025 23:28
--- NOTE | 2025-06-16 19:17 | DVHPN2 ---
Consult Progress Note Date Seen: Jun 16, 2025 Subjective Patient reports: Other (no diarrhea, test is negative ) Objective vital signs Vital Sign Date Time Temp Pulse Resp B/P (MAP) Pulse Ox O2 Delivery O2 Flow Rate FiO2 06/16/25 14:00 104 99/67 06/16/25 12:31 98.6 23 100 98.6 06/16/25 10:00 Room Air 0.0 06/16/25 10:00 21 Total Intake and Output 06/15/25 06/15/25 06/16/25 15:00 23:00 07:00 Intake Total 1200 ml 1000 ml Balance 1200 ml 1000 ml medications Current Medications Medications Dose Ordered Sig/Topher Route Start Time Stop Time Status Last Admin Dose Admin Spironolactone 25 mg DAILY PO 06/07/25 10:00 06/16/25 10:37 25 MG Empaglifozin 10 mg DAILY PO 06/07/25 10:00 06/15/25 11:27 10 MG Aspirin 81 mg DAILY PO 06/07/25 10:00 06/16/25 10:42 81 MG Acetaminophen 650 mg Q6HP PRN PO 06/07/25 00:30 Enoxaparin Sodium 40 mg DAILY SC 06/08/25 10:00 06/15/25 11:29 40 MG Acetaminophen/ Hydrocodone Bitart 1 tab Q4HPRN PRN PO 06/07/25 17:45 06/16/25 02:29 1 TAB Furosemide 40 mg DAILY PO 06/11/25 10:00 06/16/25 10:40 40 MG Ondansetron HCl 4 mg Q6HP PRN PO 06/11/25 09:30 Albuterol 90 mcg TID PRN IN 06/11/25 14:00 06/11/25 16:19 90 MCG Lisinopril 10 mg DAILY@1400 PO 06/14/25 14:00 Carvedilol 6.25 mg Q12H PO 06/14/25 14:00 Rifampin 600 mg DAILY PO 06/15/25 22:00 06/16/25 10:37 600 MG Pyridoxine HCl 50 mg DAILY PO 06/15/25 22:00 06/16/25 10:39 50 MG Ethambutol HCl 1,600 mg DAILY PO 06/16/25 13:00 06/16/25 14:08 1,600 MG Isoniazid 300 mg DAILY PO 06/16/25 13:00 06/16/25 14:09 300 MG Pyrazinamide 2,000 mg DAILY PO 06/16/25 13:00 06/16/25 14:09 2,000 MG laboratory and microbiology Laboratory Tests 06/13/25 05:09 Test 06/13/25 05:09 Range/Units Serum Glucose 80 74-106 mg/dL Problem List/Assessment/Plan Problems(with codes): (1) 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 female with a history of recurrent pulmonary edema, presenting with two days of worsening shortness of breath, left-sided pressure-like chest pain, and nonproductive cough. She reports being out of her Lasix for a week prior to admission. On admission, patient was tachycardic, and noted to have enlarged cervical and supraclavicular lymph nodes. Home medications were restarted and echocardiogram obtained. Imaging findings (CXR, CTA chest) are notable for: -Enlargement of the cardiomediastinal silhouette -Prominence of perihilar spaces -Cardiomegaly -Small to moderate pericardial effusion -Right lower lobe pleural-based pulmonary nodule (1.3 cm) -Partial collapse of right middle lobe -Diffuse mediastinal and basilar hilar lymphadenopathy -Pulmonary embolism Biopsies and laboratory findings: -Initial blood cultures positive for Staph epidermidis in 1/4 bottles, likely contaminant; subsequent cultures negative. -Sputum culture: normal pharyngeal arturo. -TB QuantiFERON pending, HIV/Influenza/COVID-19 all negative. -Soft tissue ultrasound shows abnormal right supraclavicular lymph node (2.2 x 1.2 x 1.4 cm). Ultrasound-guided biopsy performed, results pending. -No evidence of DVT on Doppler ultrasound. 06/13: awaiting to get formal TB rule out , history of homelessness and weight loss . 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 HIV test negative, check test prior to starting RIPE 06/16: test is negative , denies havign any sexual contacts . infection appears responding to antifungal therapy . 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 HIV test negative Plan: - can start RIPE at this time for disseminated TB. - defer to department of public on discharge criteria - patient can fu in ID clinic in 1-2 weeks for ongoing management of disseminated TB. - f/u on pending sputum and biopsy results - send for HIV testing - hold off empiric Tb therapy \-- Continue current antibiotics: ceftriaxone and doxycycline, to complete a seven-day course. \-- Follow up on supraclavicular lymph node biopsy results. \-- Follow up on pending TB QuantiFERON testing. \-- No further acute TB workup indicated at this time due to low suspicion. \-- Recommend follow-up in infectious disease clinic in 2-4 weeks to review biopsy and any additional findings. \-- Monitor for potential dissemination or alternative diagnosis if granulomatous disease is identified. \-- Cardiology to manage pericardial effusion and recurrent pulmonary edema; reinforce adherence to medications including Lasix. \-- Continue to monitor for new symptoms or deterioration. Isolation Precautions: TB, droplet and contact precautions Plan discussed with: Other Dietary Evaluation Review Comments: Continue current POC Expected Outcomes/Goals: To meet >75% estimated needs Lab values to improve Fu 3-5 days MIKY DAVIS MD Jun 16, 2025 19:17
[2025-06-16] MEDS: HYDROcodone-ACET 5/325MG TAB PO ONE (21:55)
[2025-06-16] MEDS: CLOTRIMAZOLE 1 % CREAM 15GM TOP SCH (21:59)
[2025-06-17] VITALS (10 sets, daily range): BP systolic 100–127; BP diastolic 59–68; PULSE 51–89; RESP 16–20; TEMP 97–98.3; O2SAT 96–100
[2025-06-17 10:10] LABS: Albumin 4.6 g/dL (3.2-4.8); Alkaline Phosphatase 94.0 U/L (46-116); Bilirubin, Direct 0.3 mg/dL (<0.3); Bilirubin, Total 0.8 mg/dL (0.2-1.0)
[2025-06-17 10:11] LABS: Alanine Aminotransferase 47.0 U/L (7-40); Total Protein 8.9 g/dL (5.7-8.2)
[2025-06-17] MEDS: diphenhdrAMINE HCL 25 MG CAP PO PRN (11:47)
--- NOTE | 2025-06-17 14:16 | DVHPN2 ---
Progress Note - Dictate Date Seen: Jun 17, 2025 Medical Necessity Reason Pt with a Central, PICC or Fol: No vital signs Vital Sign Date Time Temp Pulse Resp B/P (MAP) Pulse Ox O2 Delivery O2 Flow Rate FiO2 06/17/25 12:52 127/66 06/17/25 12:25 97.9 86 18 97 97.9 06/17/25 10:00 Room Air* 0 21 Total Intake and Output 06/16/25 06/16/25 06/17/25 15:00 23:00 07:00 Intake Total 500 ml 480 ml Balance 500 ml 480 ml medications Current Medications Medications Dose Ordered Sig/Topher Route Start Time Stop Time Status Last Admin Dose Admin Spironolactone 25 mg DAILY PO 06/07/25 10:00 06/17/25 12:51 25 MG Empaglifozin 10 mg DAILY PO 06/07/25 10:00 06/17/25 12:51 10 MG Aspirin 81 mg DAILY PO 06/07/25 10:00 06/17/25 12:51 81 MG Acetaminophen 650 mg Q6HP PRN PO 06/07/25 00:30 Enoxaparin Sodium 40 mg DAILY SC 06/08/25 10:00 06/15/25 11:29 40 MG Furosemide 40 mg DAILY PO 06/11/25 10:00 06/17/25 12:52 40 MG Ondansetron HCl 4 mg Q6HP PRN PO 06/11/25 09:30 Albuterol 90 mcg TID PRN IN 06/11/25 14:00 06/11/25 16:19 90 MCG Lisinopril 10 mg DAILY@1400 PO 06/14/25 14:00 Carvedilol 6.25 mg Q12H PO 06/14/25 14:00 Rifampin 600 mg DAILY PO 06/15/25 22:00 06/17/25 12:51 600 MG Pyridoxine HCl 50 mg DAILY PO 06/15/25 22:00 06/17/25 12:51 50 MG Ethambutol HCl 1,600 mg DAILY PO 06/16/25 13:00 06/17/25 12:52 1,600 MG Isoniazid 300 mg DAILY PO 06/16/25 13:00 06/17/25 12:52 300 MG Pyrazinamide 2,000 mg DAILY PO 06/16/25 13:00 06/17/25 12:53 2,000 MG Clotrimazole 1 applic Q12HR TOP 06/16/25 22:00 Diphenhydramine HCl 25 mg Q6HP PRN PO 06/17/25 10:45 06/17/25 11:47 25 MG laboratory and microbiology Laboratory Tests 06/13/25 05:09 Test 06/13/25 05:09 Range/Units Serum Glucose 80 74-106 mg/dL Assessment/Plan Impression Bilateral hilar lymphadenopathy Cough- nonspecific ? Sarcoidosis Chest pain Patient seen and examined Events Low oxygen requirements On room No distress S/p skin biopsy Pathology pending S/p lung biopsy, pathology showing AFB Sputum samples pending x3 Interferon positive Management Supplemental oxygen as needed Titrate to maintain sats 90% or above Incentive spirometry Follow up with ID for antituberculosis therapy F/u general surgery for skin lesion bx for pathology and microbiology Dietary Evaluation Review Comments: Continue current POC Expected Outcomes/Goals: To meet >75% estimated needs Lab values to improve Fu 3-5 days Plan discussed with: Patient CARLOS DELA CRUZ MD Jun 17, 2025 14:16
--- NOTE | 2025-06-17 15:50 | DVHPNRES ---
Progress Note Date Seen: Jun 17, 2025 Resident Creating Document: GLADYS PEREZ RESIDENT Medical Necessity Reason Pt with a Central, PICC or Fol: No Subjective Review of Systems A 34-year-old female presents for evaluation of shortness of breath. Patient reports a 2 day history of worsening of shortness of breath associated with left-sided chest pain which is shooting in nature,7/10 intensity, acute and intermittent in nature. It is associated with a productive cough which is usually yellow or clear. Reports having coughed for the last 1 month and that has increased her shortness of breath. She reports no fever but she says she felt chills, nausea, diaphoresis. She also reports running out of her Lasix a week ago for congestive heart failure. PMH: Chronic heart failure, hypertension PSH: , cholecystectomy Family history: Reviewed and noncontributory to the management of this case Social history: Patient reports smoking 1 pack per day from her teens but since the last few months she has only been having 1 pack the entire month. She also reports drinking alcohol occasionally, and having taken crystal meth smoking before. She reports she does not take it anymore but does smoke marijuana occasionally. Patient lives with her friend and is renting a place. ROS: Today the patient was seen and examined by me in the bedside. Overnight events reviewed. Patient has started medications and says she is tolerating it well with no side effects. However on talking to the nurse he said that she had itching all over her body after having orange yellow. Benadryl was given.. Rest of the ROS is negative Objective vital signs Vital Sign Date Time Temp Pulse Resp B/P (MAP) Pulse Ox O2 Delivery O2 Flow Rate FiO2 06/17/25 14:00 98 95/63 06/17/25 12:25 97.9 18 97 97.9 06/17/25 10:00 Room Air* 0 21 Total Intake and Output 06/16/25 06/16/25 06/17/25 15:00 23:00 07:00 Intake Total 500 ml 480 ml Balance 500 ml 480 ml medications Current Medications Medications Dose Ordered Sig/Topher Route Start Time Stop Time Status Last Admin Dose Admin Spironolactone 25 mg DAILY PO 06/07/25 10:00 06/17/25 12:51 25 MG Empaglifozin 10 mg DAILY PO 06/07/25 10:00 06/17/25 12:51 10 MG Aspirin 81 mg DAILY PO 06/07/25 10:00 06/17/25 12:51 81 MG Acetaminophen 650 mg Q6HP PRN PO 06/07/25 00:30 Enoxaparin Sodium 40 mg DAILY SC 06/08/25 10:00 06/15/25 11:29 40 MG Furosemide 40 mg DAILY PO 06/11/25 10:00 06/17/25 12:52 40 MG Ondansetron HCl 4 mg Q6HP PRN PO 06/11/25 09:30 Albuterol 90 mcg TID PRN IN 06/11/25 14:00 06/11/25 16:19 90 MCG Lisinopril 10 mg DAILY@1400 PO 06/14/25 14:00 Carvedilol 6.25 mg Q12H PO 06/14/25 14:00 Rifampin 600 mg DAILY PO 06/15/25 22:00 06/17/25 12:51 600 MG Pyridoxine HCl 50 mg DAILY PO 06/15/25 22:00 06/17/25 12:51 50 MG Ethambutol HCl 1,600 mg DAILY PO 06/16/25 13:00 06/17/25 12:52 1,600 MG Isoniazid 300 mg DAILY PO 06/16/25 13:00 06/17/25 12:52 300 MG Pyrazinamide 2,000 mg DAILY PO 06/16/25 13:00 06/17/25 12:53 2,000 MG Clotrimazole 1 applic Q12HR TOP 06/16/25 22:00 Diphenhydramine HCl 25 mg Q6HP PRN PO 06/17/25 10:45 06/17/25 11:47 25 MG Examination Pt is lying on bed General Appearance: Alert, Oriented X3, Cooperative, Not in acute distress HEENT: Atraumatic, Mucous membranes moist/pink Respiratory: Clear to auscultation, Normal air movement, No added sounds Cardiovascular: Regular rate, Normal S1, Normal S2, No murmurs Abdominal: Active bowel sounds, Soft, no distention, no tenderness Extremities: No edema, Normal pulses, No tenderness/swelling Skin: No Significant rash, except past surgical scars Neuro: Normal speech, sensorimotor deficits none Psych/Mental Status: Mental status NL, Mood NL Nurse was there as e commerce strategist during examination laboratory and microbiology Laboratory Tests 06/13/25 05:09 Test 06/13/25 05:09 Range/Units Serum Glucose 80 74-106 mg/dL Microbiology Date/Time Source Procedure Growth Status 06/16/25 13:26 Sputum AFB Broth Culture Pending Resulted 06/16/25 13:26 Sputum - Final Resulted 06/16/25 13:26 Sputum - Final Resulted 06/16/25 13:26 Sputum Acid Fast Bacilli Culture Pending Resulted 06/09/25 15:30 Blood Blood Culture - Final NO GROWTH AFTER 5 DAYS OF INCUBATION. Complete 06/08/25 16:45 Nose MRSA Screen - Final Complete Labs and/or images reviewed: Labs reviewed by me, Image(s) reviewed by me Problem List/Assessment/Plan Problem List/Assessment/Plan #Shortness of breaths likely from CHF versus pneumonia; to r/o TB # chest pain ruled out ACS # Acute on chronic sys CHF(HFrEF) with EF 15% # Hx of methamphetamine abuse # ? Drug induced cardiomyopathy -telemetry -EKG showed sinus tach in but no significant ST changes -ordered a chest pain protocol with morphine, nitroglycerin -aspirin and Lipitor -Echocardiography: LV EF is only 15% with moderate to severe MR, mild posterior pericardial effusion, end-stage dilated cardiomyopathy. -Lasix begin -GDM T with Aldactone, Coreg and Jardiance -carvedilol dose change from 3.125 mg to 6.25 mg # Gram-positive bacteremia # ? Acute Gram positive / negative bacterial pneumonia -Chest x-ray shows: There is enlargement of the cardio mediastinal silhouette with prominence of the perihilar spaces, -CT angio shows: No pulmonary embolism. Diffuse confluence mediastinal and bilateral hilar lymphadenopathy. - azithromycin, ceftriaxone stopped, started on doxycycline po and augmentin po -COVID and influenza tests sent, negative -Respiratory culture sent -blood culture 1 came positive and the other negative, repeat culture ,prelim negative -MRSA test,negative # ?Sarcoidosis causing shortness of breath # ? Erythema nodosum # ? TB, preliminary pathology report showed necrotizing granulomas - QuantiFERON test POSITIVE - AFB culture/smear, pending -Isolation precautions -TYLER panel - negative -RF -12.9 normal levels -DVT scan, results showed: No right or left femoropopliteal venous thrombosis. 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 - test, negative -RIPE therapy started -Sputum samples pending x3 -Interferon positive # Hypokalemia-resolving - Repleted - Monitor lab # Right lower lobe pleural-based pulmonary nodule (1.3 cm) # partial collapse of the right middle lobe with associated atelectasis. # small to moderate pericardial effusion, monitor for now -As seen in CT scan -Pulmonology consult done, suggested- Supplemental oxygen as needed, Titrate to maintain sats 90% or above. Incentive spirometry. Obtain serum ESR, CRP and BERNADETTE level and that patient may require PET/CT scan as outpatient. -ESR elevated (90), CRP elevated (5.17), BERNADETTE enzymes pending # Polysubstance (tobacco and marijuana) use disorder -Counseled on marijuana and tobacco use cessation for more than 12 minutes GI prophylaxis: Not indicated DVT prophylaxis: Lovenox 40mg s.c daily Diet: low-sodium diet Goals of care discussed with the patient for more than 27 minute: Full code status Case discussed with Dr. Chaudhry, patient and nurse. Plan discussed with: Patient, Other (rn) My Orders My Orders Orders - GLADYS PEREZ Procedure Category Date Status Time Diphenhdramine PHA 06/17/25 In Process Capsule (Benadryl 10:45 Dietary Evaluation Review Comments: Continue current POC Expected Outcomes/Goals: To meet >75% estimated needs Lab values to improve Fu 3-5 days Date of Service: Jun 17, 2025 Billing Provider: BRANDI CHAUDHRY MD Common Visit Codes: [id number] INP/OBS CARE(HIGH) GLADYS PEREZ Jun 17, 2025 15:50 BRANDI CHAUDHRY MD Jun 19, 2025 00:00
[2025-06-18] VITALS (10 sets, daily range): BP systolic 97–111; BP diastolic 52–78; PULSE 89–111; RESP 16–20; TEMP 96.3–98.9; O2SAT 96–100
[2025-06-18 12:13] LABS: Alkaline Phosphatase 110.0 U/L (46-116); Bilirubin, Direct 0.2 mg/dL (<0.3); Bilirubin, Total 0.7 mg/dL (0.2-1.0)
[2025-06-18 12:15] LABS: Alanine Aminotransferase 47.0 U/L (7-40); Albumin 4.9 g/dL (3.2-4.8); Total Protein 9.5 g/dL (5.7-8.2)
--- NOTE | 2025-06-18 19:53 | DVHPNRES ---
Progress Note Date Seen: Jun 18, 2025 Resident Creating Document: GLADYS PEREZ RESIDENT Medical Necessity Reason Pt with a Central, PICC or Fol: No Subjective Review of Systems A 34-year-old female presents for evaluation of shortness of breath. Patient reports a 2 day history of worsening of shortness of breath associated with left-sided chest pain which is shooting in nature,7/10 intensity, acute and intermittent in nature. It is associated with a productive cough which is usually yellow or clear. Reports having coughed for the last 1 month and that has increased her shortness of breath. She reports no fever but she says she felt chills, nausea, diaphoresis. She also reports running out of her Lasix a week ago for congestive heart failure. PMH: Chronic heart failure, hypertension PSH: , cholecystectomy Family history: Reviewed and noncontributory to the management of this case Social history: Patient reports smoking 1 pack per day from her teens but since the last few months she has only been having 1 pack the entire month. She also reports drinking alcohol occasionally, and having taken crystal meth smoking before. She reports she does not take it anymore but does smoke marijuana occasionally. Patient lives with her friend and is renting a place. ROS: Today the patient was seen and examined by me in the bedside. Overnight events reviewed. Patient has started medications and says she is tolerating it well with no side effects. Rest of the ROS is negative Objective vital signs Vital Sign Date Time Temp Pulse Resp B/P (MAP) Pulse Ox O2 Delivery O2 Flow Rate FiO2 06/18/25 17:00 98.9 102 20 107/70 (82) 98 98.9 06/18/25 10:00 Room Air* 0 21 Total Intake and Output 06/17/25 06/17/25 06/18/25 15:00 23:00 07:00 Intake Total 780 ml 680 ml Balance 780 ml 680 ml medications Current Medications Medications Dose Ordered Sig/Topher Route Start Time Stop Time Status Last Admin Dose Admin Spironolactone 25 mg DAILY PO 06/07/25 10:00 06/17/25 12:51 25 MG Empaglifozin 10 mg DAILY PO 06/07/25 10:00 06/17/25 12:51 10 MG Aspirin 81 mg DAILY PO 06/07/25 10:00 06/17/25 12:51 81 MG Acetaminophen 650 mg Q6HP PRN PO 06/07/25 00:30 Enoxaparin Sodium 40 mg DAILY SC 06/08/25 10:00 06/15/25 11:29 40 MG Furosemide 40 mg DAILY PO 06/11/25 10:00 06/17/25 12:52 40 MG Ondansetron HCl 4 mg Q6HP PRN PO 06/11/25 09:30 Albuterol 90 mcg TID PRN IN 06/11/25 14:00 06/11/25 16:19 90 MCG Lisinopril 10 mg DAILY@1400 PO 06/14/25 14:00 Carvedilol 6.25 mg Q12H PO 06/14/25 14:00 Rifampin 600 mg DAILY PO 06/15/25 22:00 06/17/25 12:51 600 MG Pyridoxine HCl 50 mg DAILY PO 06/15/25 22:00 06/17/25 12:51 50 MG Ethambutol HCl 1,600 mg DAILY PO 06/16/25 13:00 06/17/25 12:52 1,600 MG Isoniazid 300 mg DAILY PO 06/16/25 13:00 06/17/25 12:52 300 MG Pyrazinamide 2,000 mg DAILY PO 06/16/25 13:00 06/17/25 12:53 2,000 MG Clotrimazole 1 applic Q12HR TOP 06/16/25 22:00 Diphenhydramine HCl 25 mg Q6HP PRN PO 06/17/25 10:45 06/18/25 09:48 25 MG Examination Pt is lying on bed General Appearance: Alert, Oriented X3, Cooperative, Not in acute distress HEENT: Atraumatic, Mucous membranes moist/pink Respiratory: Clear to auscultation, Normal air movement, No added sounds Cardiovascular: Regular rate, Normal S1, Normal S2, No murmurs Abdominal: Active bowel sounds, Soft, no distention, no tenderness Extremities: No edema, Normal pulses, No tenderness/swelling Skin: No Significant rash, except past surgical scars Neuro: Normal speech, sensorimotor deficits none Psych/Mental Status: Mental status NL, Mood NL Nurse was there as casting finisher during examination laboratory and microbiology Laboratory Tests 06/13/25 05:09 Test 06/13/25 05:09 Range/Units Serum Glucose 80 74-106 mg/dL Microbiology Date/Time Source Procedure Growth Status 06/17/25 10:00 Sputum AFB Broth Culture Pending Resulted 06/17/25 10:00 Sputum - Final Resulted 06/17/25 10:00 Sputum - Final Resulted 06/17/25 10:00 Sputum Acid Fast Bacilli Culture Pending Resulted 06/09/25 15:30 Blood Blood Culture - Final NO GROWTH AFTER 5 DAYS OF INCUBATION. Complete 06/08/25 16:45 Nose MRSA Screen - Final Complete Labs and/or images reviewed: Labs reviewed by me, Image(s) reviewed by me Problem List/Assessment/Plan Problem List/Assessment/Plan #Shortness of breaths likely from CHF versus pneumonia; to r/o TB # chest pain ruled out ACS # Acute on chronic sys CHF(HFrEF) with EF 15% # Hx of methamphetamine abuse # ? Drug induced cardiomyopathy -telemetry -EKG showed sinus tach in but no significant ST changes -ordered a chest pain protocol with morphine, nitroglycerin -aspirin and Lipitor -Echocardiography: LV EF is only 15% with moderate to severe MR, mild posterior pericardial effusion, end-stage dilated cardiomyopathy. -Lasix begin -GDM T with Aldactone, Coreg and Jardiance -carvedilol dose change from 3.125 mg to 6.25 mg # Gram-positive bacteremia # ? Acute Gram positive / negative bacterial pneumonia -Chest x-ray shows: There is enlargement of the cardio mediastinal silhouette with prominence of the perihilar spaces, -CT angio shows: No pulmonary embolism. Diffuse confluence mediastinal and bilateral hilar lymphadenopathy. - azithromycin, ceftriaxone stopped, started on doxycycline po and augmentin po -COVID and influenza tests sent, negative -Respiratory culture sent -blood culture 1 came positive and the other negative, repeat culture ,prelim negative -MRSA test,negative # ?Sarcoidosis causing shortness of breath # ? Erythema nodosum # ? TB, preliminary pathology report showed necrotizing granulomas - QuantiFERON test POSITIVE - AFB culture/smear, pending -Isolation precautions -TYLER panel - negative -RF -12.9 normal levels -DVT scan, results showed: No right or left femoropopliteal venous thrombosis. 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 - test, negative -RIPE therapy started -Sputum samples pending x3 -Interferon positive # Hypokalemia-resolving - Repleted - Monitor lab # Right lower lobe pleural-based pulmonary nodule (1.3 cm) # partial collapse of the right middle lobe with associated atelectasis. # small to moderate pericardial effusion, monitor for now -As seen in CT scan -Pulmonology consult done, suggested- Supplemental oxygen as needed, Titrate to maintain sats 90% or above. Incentive spirometry. Obtain serum ESR, CRP and BERNADETTE level and that patient may require PET/CT scan as outpatient. -ESR elevated (90), CRP elevated (5.17), BERNADETTE enzymes pending # Polysubstance (tobacco and marijuana) use disorder -Counseled on marijuana and tobacco use cessation for more than 12 minutes GI prophylaxis: Not indicated DVT prophylaxis: Lovenox 40mg s.c daily Diet: low-sodium diet Goals of care discussed with the patient for more than 27 minute: Full code status Case discussed with Dr. Chaudhry, patient and nurse. Plan discussed with: Patient, Other (rn) Dietary Evaluation Review Comments: Continue current POC Expected Outcomes/Goals: To meet >75% estimated needs Lab values to improve Fu 3-5 days Date of Service: Jun 18, 2025 Billing Provider: BRANDI CHAUDHRY MD Common Visit Codes: [id number] INP/OBS CARE(HIGH) GLADYS PEREZ RESIDENT Jun 18, 2025 19:53 BRANDI CHAUDHRY MD Jun 19, 2025 00:01
--- NOTE | 2025-06-18 20:57 | DVHPN2 ---
Progress Note - Dictate Date Seen: Jun 18, 2025 Medical Necessity Reason Pt with a Central, PICC or Fol: No Subjective Patient seen and examined at bedside. Breathing comfortably on room air. Overnight events reviewed. vital signs Vital Sign Date Time Temp Pulse Resp B/P (MAP) Pulse Ox O2 Delivery O2 Flow Rate FiO2 06/18/25 17:00 98.9 102 20 107/70 (82) 98 98.9 06/18/25 10:00 Room Air* 0 21 Total Intake and Output 06/17/25 06/17/25 06/18/25 15:00 23:00 07:00 Intake Total 780 ml 680 ml Balance 780 ml 680 ml medications Current Medications Medications Dose Ordered Sig/Topher Route Start Time Stop Time Status Last Admin Dose Admin Spironolactone 25 mg DAILY PO 06/07/25 10:00 06/17/25 12:51 25 MG Empaglifozin 10 mg DAILY PO 06/07/25 10:00 06/17/25 12:51 10 MG Aspirin 81 mg DAILY PO 06/07/25 10:00 06/17/25 12:51 81 MG Acetaminophen 650 mg Q6HP PRN PO 06/07/25 00:30 Enoxaparin Sodium 40 mg DAILY SC 06/08/25 10:00 06/15/25 11:29 40 MG Furosemide 40 mg DAILY PO 06/11/25 10:00 06/17/25 12:52 40 MG Ondansetron HCl 4 mg Q6HP PRN PO 06/11/25 09:30 Albuterol 90 mcg TID PRN IN 06/11/25 14:00 06/11/25 16:19 90 MCG Lisinopril 10 mg DAILY@1400 PO 06/14/25 14:00 Carvedilol 6.25 mg Q12H PO 06/14/25 14:00 Rifampin 600 mg DAILY PO 06/15/25 22:00 06/17/25 12:51 600 MG Pyridoxine HCl 50 mg DAILY PO 06/15/25 22:00 06/17/25 12:51 50 MG Ethambutol HCl 1,600 mg DAILY PO 06/16/25 13:00 06/17/25 12:52 1,600 MG Isoniazid 300 mg DAILY PO 06/16/25 13:00 06/17/25 12:52 300 MG Pyrazinamide 2,000 mg DAILY PO 06/16/25 13:00 06/17/25 12:53 2,000 MG Clotrimazole 1 applic Q12HR TOP 06/16/25 22:00 Diphenhydramine HCl 25 mg Q6HP PRN PO 06/17/25 10:45 06/18/25 09:48 25 MG objective Gen.: Patient lying in bed in no apparent distress. Breathing on room air. Head: Normocephalic, atraumatic. Eyes: EOMI/PERRLA. Ears: Normal hearing. Normal anatomy. Neck/trachea: Trachea midline, supple. Nose: Normal external anatomy. Mouth: Moist mucous membranes. Chest: Decreased air entry bilaterally. No wheezing or rhonchi. Cardiovascular: Positive S1, positive S2. Regular rate and rhythm. Abdomen: Positive bowel sounds in all 4 quadrants. Soft, non-tender, non- distended. : Deferred. Rectal: Deferred. Skin: Warm, dry. Intact. Extremities: 2+ radial pulses bilaterally. No lower extremity edema. Neuro: Awake, alert, oriented x3. No gross motor or sensory deficits. Cranial nerves II through XII intact. Gait not assessed. laboratory and microbiology Laboratory Tests 06/13/25 05:09 Test 06/13/25 05:09 Range/Units Serum Glucose 80 74-106 mg/dL Assessment/Plan Impression: Bilateral hilar lymphadenopathy Cough- nonproductive, chronic Sarcoidosis, possible Chest pain Obesity, BMI 30 Nonadherence Events: Patient seen and examined at bedside. Low oxygen requirements On room air No distress S/p skin biopsy - follow up pathology Follow up AFB - negative x3. Sputum samples pending x3 Lung biopsy AFB positive Interferon positive TB treatment per ID. Repeat blood cultures showing no growth. Positive QuantiFERON HIV negative. Patient started on RIPE therapy - refused medications today. Plan: Supplemental oxygen as needed Titrate to maintain sats 90% or above Incentive spirometry Bronchodilators PRN Follow up with ID for antituberculosis therapy - started on RIPE therapy. F/u general surgery for skin lesion bx for pathology and microbiology Diurese with Lasix Monitor renal function. Monitor electrolytes. Supplement as necessary. Monitor ins and outs. Diet and lifestyle modifications for weight reduction Obesity - complicates all care Prognosis: Poor given patient's multiple co-morbidities. Rest of plan per hospitalist and other consultants. Thank you, Dr. Orozco, for allowing me to participate in this patient's care. Further recommendations will depend on the patient's clinical course. Please do not hesitate to contact me if you have any questions or concerns. This medical document was created using an electronic medical record system with [employer] dictation system. Although these documentations are being carefully reviewed, there may still be some phonetic and typographical changes. The errors are purely typographical, due to imperfection on the software program, and do not reflect any compromise in the patient's medical care. Dietary Evaluation Review Comments: Continue current POC Expected Outcomes/Goals: To meet >75% estimated needs Lab values to improve Fu 3-5 days Plan discussed with: Patient, Other (RN) ROSA MORENO MD Jun 18, 2025 20:57
[2025-06-19] VITALS (10 sets, daily range): BP systolic 95–122; BP diastolic 52–79; PULSE 85–103; RESP 16–20; TEMP 97.5–98; O2SAT 93–100
[2025-06-19 10:08] LABS: Albumin 4.4 g/dL (3.2-4.8); Alkaline Phosphatase 104.0 U/L (46-116); Bilirubin, Direct 0.2 mg/dL (<0.3); Bilirubin, Total 0.4 mg/dL (0.2-1.0)
[2025-06-19 10:10] LABS: Alanine Aminotransferase 45.0 U/L (7-40); Total Protein 8.5 g/dL (5.7-8.2)
--- NOTE | 2025-06-19 16:20 | DVHPN2 ---
Subjective The patient seen and examined at bedside. No complains of shortness of breath. Reviewed: Care Plan, H&P, Labs, Medications, Previous Orders, Radiology Changes from previous H/P or p: No Changes Objective Vitals Vital Signs Date Time Temp Pulse Resp B/P (MAP) Pulse Ox O2 Delivery O2 Flow Rate FiO2 06/19/25 14:44 101 110/62 06/19/25 13:00 97.8 18 99 97.8 06/19/25 11:05 Room Air* 0 21 Intake/Output Intake and Output 06/19/25 07:00 Intake Total 1520 ml Balance 1520 ml Intake Oral 1520 ml # Voids 7 # Bowel Movements 1 General Appearance: Alert, Oriented X3, Cooperative, No acute distress HEENT: Atraumatic, PERRLA, EOMI, Mucous membr. moist/pink Neck: Supple Lungs: Clear to auscultation, Normal air movement Cardiovascular: Regular rate, Normal S1, Normal S2, No murmurs, Gallops, Rubs Abdomen: Normal bowel sounds, Soft, No tenderness Neuro: Cranial nerves 3-12 NL Psych/Mental Status: Mental status NL Medications Current Medications Medications Dose Ordered Sig/Topher Route Start Time Stop Time Status Last Admin Dose Admin Spironolactone 25 mg DAILY PO 06/07/25 10:00 06/19/25 09:52 25 MG Empaglifozin 10 mg DAILY PO 06/07/25 10:00 06/19/25 09:53 10 MG Aspirin 81 mg DAILY PO 06/07/25 10:00 06/19/25 09:51 81 MG Acetaminophen 650 mg Q6HP PRN PO 06/07/25 00:30 Furosemide 40 mg DAILY PO 06/11/25 10:00 06/19/25 09:53 40 MG Ondansetron HCl 4 mg Q6HP PRN PO 06/11/25 09:30 Albuterol 90 mcg TID PRN IN 06/11/25 14:00 06/11/25 16:19 90 MCG Lisinopril 10 mg DAILY@1400 PO 06/14/25 14:00 Carvedilol 6.25 mg Q12H PO 06/14/25 14:00 06/19/25 14:44 6.25 MG Rifampin 600 mg DAILY PO 06/15/25 22:00 06/19/25 09:52 600 MG Pyridoxine HCl 50 mg DAILY PO 06/15/25 22:00 06/19/25 09:52 50 MG Ethambutol HCl 1,600 mg DAILY PO 06/16/25 13:00 06/19/25 09:52 1,600 MG Isoniazid 300 mg DAILY PO 06/16/25 13:00 06/19/25 09:53 300 MG Pyrazinamide 2,000 mg DAILY PO 06/16/25 13:00 06/19/25 09:53 2,000 MG Clotrimazole 1 applic Q12HR TOP 06/16/25 22:00 Diphenhydramine HCl 25 mg Q6HP PRN PO 06/17/25 10:45 06/18/25 21:29 25 MG Laboratory Results Laboratory Tests 06/13/25 05:09 Chemistry Test 06/19/25 09:20 Albumin 4.4 g/dL (3.2-4.8) Total Protein 8.5 g/dL (5.7-8.2) H LFT Test 06/19/25 09:20 Alanine Aminotransferase (ALT) 45 U/L (7-40) H Alkaline Phosphatase 104 U/L (46-116) Aspartate Amino Transferase (AST) 46 U/L (13-40) H Direct Bilirubin 0.2 mg/dL (<0.3) Total Bilirubin 0.4 mg/dL (0.2-1.0) Urinalysis Test 06/06/25 21:07 06/08/25 11:50 06/15/25 18:45 Urine Hyaline Casts Few /lpf (0 - 2) Urine Color Yellow (Yellow) Urine Clarity Clear (Clear) Urine pH 5.5 (5.0-9.0) Urine Specific [place] 1.032 (1.001-1.035) Urine Protein 1+ (Negative) H Urine Ketones Negative (Negative) Urine Blood Negative /uL (Negative) Urine Nitrite Negative (Negative) Urine Bilirubin Negative (Negative) Urine Urobilinogen 3 mg/dL (Negative) H Urine Leukocyte Esterase Negative /uL (Negative) Urine RBC 3 /hpf (0 - 4) Urine Microscopic WBC 2 /HPF (0-5) Urine Squamous Epithelial Cells Few /hpf (<5) Urine Bacteria None seen /hpf (None Seen) Urine Mucus Few (None Seen) Urine Glucose 3+ mg/dL (Normal) H Urine Test Negative (Negative) Microbiology Microbiology Date/Time Source Procedure Growth Status 06/17/25 10:00 Sputum AFB Broth Culture Pending Resulted 06/17/25 10:00 Sputum - Final Resulted 06/17/25 10:00 Sputum - Final Resulted 06/17/25 10:00 Sputum Acid Fast Bacilli Culture Pending Resulted 06/09/25 15:30 Blood Blood Culture - Final NO GROWTH AFTER 5 DAYS OF INCUBATION. Complete 06/08/25 16:45 Nose MRSA Screen - Final Complete Labs and/or images reviewed: Labs reviewed by me Assessment/Plan Assessment/Plan #Shortness of breaths likely from CHF versus pneumonia; to r/o TB # chest pain ruled out ACS # Acute on chronic sys CHF(HFrEF) with EF 15% # Hx of methamphetamine abuse # ? Drug induced cardiomyopathy -telemetry -EKG showed sinus tach in but no significant ST changes -ordered a chest pain protocol with morphine, nitroglycerin -aspirin and Lipitor -Echocardiography: LV EF is only 15% with moderate to severe MR, mild posterior pericardial effusion, end-stage dilated cardiomyopathy. -Lasix begin -GDM T with Aldactone, Coreg and Jardiance -carvedilol dose change from 3.125 mg to 6.25 mg # Gram-positive bacteremia # ? Acute Gram positive / negative bacterial pneumonia -Chest x-ray shows: There is enlargement of the cardio mediastinal silhouette with prominence of the perihilar spaces, -CT angio shows: No pulmonary embolism. Diffuse confluence mediastinal and bilateral hilar lymphadenopathy. - azithromycin, ceftriaxone stopped, started on doxycycline po and augmentin po -COVID and influenza tests sent, negative -Respiratory culture sent -blood culture 1 came positive and the other negative, repeat culture ,prelim negative -MRSA test,negative # ?Sarcoidosis causing shortness of breath # ? Erythema nodosum # ? TB, preliminary pathology report showed necrotizing granulomas - QuantiFERON test POSITIVE - AFB culture/smear, pending -Isolation precautions -TYLER panel - negative -RF -12.9 normal levels -DVT scan, results showed: No right or left femoropopliteal venous thrombosis. 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 - test, negative -RIPE therapy started -Sputum samples pending x3 -Interferon positive # Hypokalemia-resolving - Repleted - Monitor lab # Right lower lobe pleural-based pulmonary nodule (1.3 cm) # partial collapse of the right middle lobe with associated atelectasis. # small to moderate pericardial effusion, monitor for now -As seen in CT scan -Pulmonology consult done, suggested- Supplemental oxygen as needed, Titrate to maintain sats 90% or above. Incentive spirometry. Obtain serum ESR, CRP and BERNADETTE level and that patient may require PET/CT scan as outpatient. -ESR elevated (90), CRP elevated (5.17), BERNADETTE enzymes pending # Polysubstance (tobacco and marijuana) use disorder -Counseled on marijuana and tobacco use cessation for more than 12 minutes GI prophylaxis: Not indicated DVT prophylaxis: Lovenox 40mg s.c daily Diet: low-sodium diet Continue current management. Continue TB medication Waiting for culture. This medical document was created using an electronic medical record system with [employer] computerized dictation system. Although this document has been carefully reviewed, there may still be some phonetic and typographical errors. These areas are purely typographical due to imperfections of the software programs, and do not reflect any compromise in the patient's medical care. Plan discussed with: Patient Date of Service: Jun 19, 2025 Billing Provider: BRANDI TORRES MD Common Visit Codes: [id number] INP/OBS CARE(HIGH) BRANDI TORRES MD Jun 19, 2025 16:20
--- NOTE | 2025-06-19 23:21 | DVHPN2 ---
Progress Note - Dictate Date Seen: Jun 19, 2025 Medical Necessity Reason Pt with a Central, PICC or Fol: No Subjective Patient seen and examined at bedside. Breathing comfortably on room air. Overnight events reviewed. vital signs Vital Sign Date Time Temp Pulse Resp B/P (MAP) Pulse Ox O2 Delivery O2 Flow Rate FiO2 06/19/25 21:03 93 97/49 06/19/25 19:19 99 Room Air* 0 21 06/19/25 17:00 98.0 17 98.0 Total Intake and Output 06/18/25 06/18/25 06/19/25 15:00 23:00 07:00 Intake Total 480 ml 1040 ml Balance 480 ml 1040 ml medications Current Medications Medications Dose Ordered Sig/Topher Route Start Time Stop Time Status Last Admin Dose Admin Spironolactone 25 mg DAILY PO 06/07/25 10:00 06/19/25 09:52 25 MG Empaglifozin 10 mg DAILY PO 06/07/25 10:00 06/19/25 09:53 10 MG Aspirin 81 mg DAILY PO 06/07/25 10:00 06/19/25 09:51 81 MG Acetaminophen 650 mg Q6HP PRN PO 06/07/25 00:30 Furosemide 40 mg DAILY PO 06/11/25 10:00 06/19/25 09:53 40 MG Ondansetron HCl 4 mg Q6HP PRN PO 06/11/25 09:30 Albuterol 90 mcg TID PRN IN 06/11/25 14:00 06/11/25 16:19 90 MCG Lisinopril 10 mg DAILY@1400 PO 06/14/25 14:00 Carvedilol 6.25 mg Q12H PO 06/14/25 14:00 06/19/25 14:44 6.25 MG Rifampin 600 mg DAILY PO 06/15/25 22:00 06/19/25 09:52 600 MG Pyridoxine HCl 50 mg DAILY PO 06/15/25 22:00 06/19/25 09:52 50 MG Ethambutol HCl 1,600 mg DAILY PO 06/16/25 13:00 06/19/25 09:52 1,600 MG Isoniazid 300 mg DAILY PO 06/16/25 13:00 06/19/25 09:53 300 MG Pyrazinamide 2,000 mg DAILY PO 06/16/25 13:00 06/19/25 09:53 2,000 MG Clotrimazole 1 applic Q12HR TOP 06/16/25 22:00 Diphenhydramine HCl 25 mg Q6HP PRN PO 06/17/25 10:45 06/19/25 20:27 25 MG objective Gen.: Patient lying in bed in no apparent distress. Breathing on room air. Head: Normocephalic, atraumatic. Eyes: EOMI/PERRLA. Ears: Normal hearing. Normal anatomy. Neck/trachea: Trachea midline, supple. Nose: Normal external anatomy. Mouth: Moist mucous membranes. Chest: Decreased air entry bilaterally. No wheezing or rhonchi. Cardiovascular: Positive S1, positive S2. Regular rate and rhythm. Abdomen: Positive bowel sounds in all 4 quadrants. Soft, non-tender, non- distended. : Deferred. Rectal: Deferred. Skin: Warm, dry. Intact. Extremities: 2+ radial pulses bilaterally. No lower extremity edema. Neuro: Awake, alert, oriented x3. No gross motor or sensory deficits. Cranial nerves II through XII intact. Gait not assessed. laboratory and microbiology Laboratory Tests 06/13/25 05:09 Test 06/13/25 05:09 Range/Units Serum Glucose 80 74-106 mg/dL Assessment/Plan Impression: Bilateral hilar lymphadenopathy Cough- nonproductive, chronic Sarcoidosis, possible Chest pain Obesity, BMI 30 Nonadherence Events: Patient seen and examined at bedside. Low oxygen requirements Remains on room air No distress S/p skin biopsy - follow up pathology AFB smears negative x3. Sputum samples pending x3 Lung biopsy AFB positive Interferon positive Follow up ID recommendations TB treatment per ID. Repeat blood cultures showing no growth. Positive QuantiFERON HIV negative. Continue RIPE therapy. Patient is stable for discharge if OK from the ID standpoint Disposition per hospitalist. Plan: Supplemental oxygen as needed Titrate to maintain sats above 92%. Incentive spirometry Bronchodilators PRN Follow up with ID for antituberculosis therapy - on RIPE therapy. F/u general surgery for skin lesion bx for pathology and microbiology Diurese with Lasix Monitor renal function. Monitor electrolytes. Supplement as necessary. Monitor ins and outs. Diet and lifestyle modifications for weight reduction Obesity - complicates all care Prognosis: Poor given patient's multiple co-morbidities. Rest of plan per hospitalist and other consultants. Thank you, Dr. Orozco, for allowing me to participate in this patient's care. Further recommendations will depend on the patient's clinical course. Please do not hesitate to contact me if you have any questions or concerns. This medical document was created using an electronic medical record system with [employer] dictation system. Although these documentations are being carefully reviewed, there may still be some phonetic and typographical changes. The errors are purely typographical, due to imperfection on the software program, and do not reflect any compromise in the patient's medical care. Dietary Evaluation Review Comments: Continue current POC Expected Outcomes/Goals: To meet >75% estimated needs Lab values to improve Fu 3-5 days Plan discussed with: Patient, Other (RN [place]) ROSA MORENO MD Jun 19, 2025 23:21
[2025-06-20] VITALS (10 sets, daily range): BP systolic 94–116; BP diastolic 55–75; PULSE 76–99; RESP 14–18; TEMP 96.8–97.8; O2SAT 95–100
[2025-06-20 07:37] LABS: Albumin 4.4 g/dL (3.2-4.8); Alkaline Phosphatase 103.0 U/L (46-116); Bilirubin, Direct 0.2 mg/dL (<0.3); Bilirubin, Total 0.4 mg/dL (0.2-1.0)
[2025-06-20 07:46] LABS: Alanine Aminotransferase 41.0 U/L (7-40); Total Protein 8.5 g/dL (5.7-8.2)
--- NOTE | 2025-06-20 14:42 | DVHPNRES ---
Progress Note Date Seen: Jun 20, 2025 Resident Creating Document: GLADYS PEREZ RESIDENT Medical Necessity Reason Pt with a Central, PICC or Fol: No Subjective Review of Systems A 34-year-old female presents for evaluation of shortness of breath. Patient reports a 2 day history of worsening of shortness of breath associated with left-sided chest pain which is shooting in nature,7/10 intensity, acute and intermittent in nature. It is associated with a productive cough which is usually yellow or clear. Reports having coughed for the last 1 month and that has increased her shortness of breath. She reports no fever but she says she felt chills, nausea, diaphoresis. She also reports running out of her Lasix a week ago for congestive heart failure. PMH: Chronic heart failure, hypertension PSH: , cholecystectomy Family history: Reviewed and noncontributory to the management of this case Social history: Patient reports smoking 1 pack per day from her teens but since the last few months she has only been having 1 pack the entire month. She also reports drinking alcohol occasionally, and having taken crystal meth smoking before. She reports she does not take it anymore but does smoke marijuana occasionally. Patient lives with her friend and is renting a place. ROS: Today the patient was seen and examined by me in the bedside. Overnight events reviewed. Patient has started medications and says she is tolerating it well with no side effects. Rest of the ROS is negative Objective vital signs Vital Sign Date Time Temp Pulse Resp B/P (MAP) Pulse Ox O2 Delivery O2 Flow Rate FiO2 06/20/25 14:13 99 107/58 06/20/25 13:00 97.6 17 98 97.6 06/20/25 06:46 Room Air* 0 21 Total Intake and Output 06/19/25 06/19/25 06/20/25 15:00 23:00 07:00 Intake Total 118 ml 850 ml 250 ml Balance 118 ml 850 ml 250 ml medications Current Medications Medications Dose Ordered Sig/Topher Route Start Time Stop Time Status Last Admin Dose Admin Spironolactone 25 mg DAILY PO 06/07/25 10:00 06/20/25 09:38 25 MG Empaglifozin 10 mg DAILY PO 06/07/25 10:00 06/20/25 09:38 10 MG Aspirin 81 mg DAILY PO 06/07/25 10:00 06/20/25 09:37 81 MG Acetaminophen 650 mg Q6HP PRN PO 06/07/25 00:30 Furosemide 40 mg DAILY PO 06/11/25 10:00 06/20/25 09:38 40 MG Ondansetron HCl 4 mg Q6HP PRN PO 06/11/25 09:30 Albuterol 90 mcg TID PRN IN 06/11/25 14:00 06/11/25 16:19 90 MCG Lisinopril 10 mg DAILY@1400 PO 06/14/25 14:00 Carvedilol 6.25 mg Q12H PO 06/14/25 14:00 06/20/25 14:13 6.25 MG Rifampin 600 mg DAILY PO 06/15/25 22:00 06/20/25 09:37 600 MG Pyridoxine HCl 50 mg DAILY PO 06/15/25 22:00 06/20/25 09:39 50 MG Ethambutol HCl 1,600 mg DAILY PO 06/16/25 13:00 06/20/25 09:37 1,600 MG Isoniazid 300 mg DAILY PO 06/16/25 13:00 06/20/25 09:37 300 MG Pyrazinamide 2,000 mg DAILY PO 06/16/25 13:00 06/20/25 09:37 2,000 MG Clotrimazole 1 applic Q12HR TOP 06/16/25 22:00 Diphenhydramine HCl 25 mg Q6HP PRN PO 06/17/25 10:45 06/19/25 20:27 25 MG Examination Pt is lying on bed General Appearance: Alert, Oriented X3, Cooperative, Not in acute distress HEENT: Atraumatic, Mucous membranes moist/pink Respiratory: Clear to auscultation, Normal air movement, No added sounds Cardiovascular: Regular rate, Normal S1, Normal S2, No murmurs Abdominal: Active bowel sounds, Soft, no distention, no tenderness Extremities: No edema, Normal pulses, No tenderness/swelling Skin: No Significant rash, except past surgical scars Neuro: Normal speech, sensorimotor deficits none Psych/Mental Status: Mental status NL, Mood NL Nurse was there as coal drier operator during examination laboratory and microbiology Laboratory Tests 06/13/25 05:09 Test 06/13/25 05:09 Range/Units Serum Glucose 80 74-106 mg/dL Microbiology Date/Time Source Procedure Growth Status 06/17/25 10:00 Sputum AFB Broth Culture Pending Resulted 06/17/25 10:00 Sputum - Final Resulted 06/17/25 10:00 Sputum - Final Resulted 06/17/25 10:00 Sputum Acid Fast Bacilli Culture Pending Resulted 06/09/25 15:30 Blood Blood Culture - Final NO GROWTH AFTER 5 DAYS OF INCUBATION. Complete 06/08/25 16:45 Nose MRSA Screen - Final Complete Labs and/or images reviewed: Labs reviewed by me, Image(s) reviewed by me Problem List/Assessment/Plan Problem List/Assessment/Plan #Shortness of breaths likely from CHF versus pneumonia; to r/o TB # chest pain ruled out ACS # Acute on chronic sys CHF(HFrEF) with EF 15% # Hx of methamphetamine abuse # ? Drug induced cardiomyopathy -telemetry -EKG showed sinus tach in but no significant ST changes -ordered a chest pain protocol with morphine, nitroglycerin -aspirin and Lipitor -Echocardiography: LV EF is only 15% with moderate to severe MR, mild posterior pericardial effusion, end-stage dilated cardiomyopathy. -Lasix begin -GDM T with Aldactone, Coreg and Jardiance -carvedilol dose change from 3.125 mg to 6.25 mg # Gram-positive bacteremia # ? Acute Gram positive / negative bacterial pneumonia -Chest x-ray shows: There is enlargement of the cardio mediastinal silhouette with prominence of the perihilar spaces, -CT angio shows: No pulmonary embolism. Diffuse confluence mediastinal and bilateral hilar lymphadenopathy. - azithromycin, ceftriaxone stopped, started on doxycycline po and augmentin po -COVID and influenza tests sent, negative -Respiratory culture sent -blood culture 1 came positive and the other negative, repeat culture ,prelim negative -MRSA test,negative # ?Sarcoidosis causing shortness of breath # ? Erythema nodosum # ? TB, preliminary pathology report showed necrotizing granulomas - QuantiFERON test POSITIVE -Isolation precautions -TYLER panel - negative -RF -12.9 normal levels -DVT scan, results showed: No right or left femoropopliteal venous thrombosis. 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 - test, negative -RIPE therapy started -AFB smears negative x3. -Sputum samples pending x3 -Lung biopsy AFB positive -Interferon positive # Hypokalemia-resolving - Repleted - Monitor lab # Right lower lobe pleural-based pulmonary nodule (1.3 cm) # partial collapse of the right middle lobe with associated atelectasis. # small to moderate pericardial effusion, monitor for now -As seen in CT scan -Pulmonology consult done, suggested- Supplemental oxygen as needed, Titrate to maintain sats 90% or above. Incentive spirometry. Obtain serum ESR, CRP and BERNADETTE level and that patient may require PET/CT scan as outpatient. -ESR elevated (90), CRP elevated (5.17), BERNADETTE enzymes pending # Polysubstance (tobacco and marijuana) use disorder -Counseled on marijuana and tobacco use cessation for more than 12 minutes GI prophylaxis: Not indicated DVT prophylaxis: Lovenox 40mg s.c daily Diet: low-sodium diet Goals of care discussed with the patient for more than 27 minute: Full code status Case discussed with Dr. Chaudhry, patient and nurse. Plan discussed with: Patient, Other (rn) Dietary Evaluation Review Comments: Continue current POC Expected Outcomes/Goals: To meet >75% estimated needs Lab values to improve Fu 3-5 days Date of Service: Jun 20, 2025 Billing Provider: BRANDI CHAUDHRY MD Common Visit Codes: [id number] INP/OBS CARE(HIGH) GLADYS PEREZ RESIDENT Jun 20, 2025 14:42 BRANDI CHAUDHRY MD Jun 20, 2025 23:44
--- NOTE | 2025-06-20 23:51 | DVHPN2 ---
Progress Note - Dictate Date Seen: Jun 20, 2025 Medical Necessity Reason Pt with a Central, PICC or Fol: No Subjective Patient seen and examined at bedside. Breathing comfortably on room air. Overnight events reviewed. vital signs Vital Sign Date Time Temp Pulse Resp B/P (MAP) Pulse Ox O2 Delivery O2 Flow Rate FiO2 06/20/25 21:00 96.8 98 14 109/75 (86) 100 96.8 06/20/25 20:00 Room Air* 0 21 Total Intake and Output 06/19/25 06/19/25 06/20/25 15:00 23:00 07:00 Intake Total 118 ml 850 ml 250 ml Balance 118 ml 850 ml 250 ml medications Current Medications Medications Dose Ordered Sig/Topher Route Start Time Stop Time Status Last Admin Dose Admin Spironolactone 25 mg DAILY PO 06/07/25 10:00 06/20/25 09:38 25 MG Empaglifozin 10 mg DAILY PO 06/07/25 10:00 06/20/25 09:38 10 MG Aspirin 81 mg DAILY PO 06/07/25 10:00 06/20/25 09:37 81 MG Acetaminophen 650 mg Q6HP PRN PO 06/07/25 00:30 Furosemide 40 mg DAILY PO 06/11/25 10:00 06/20/25 09:38 40 MG Ondansetron HCl 4 mg Q6HP PRN PO 06/11/25 09:30 Albuterol 90 mcg TID PRN IN 06/11/25 14:00 06/11/25 16:19 90 MCG Lisinopril 10 mg DAILY@1400 PO 06/14/25 14:00 Carvedilol 6.25 mg Q12H PO 06/14/25 14:00 06/20/25 14:13 6.25 MG Rifampin 600 mg DAILY PO 06/15/25 22:00 06/20/25 09:37 600 MG Pyridoxine HCl 50 mg DAILY PO 06/15/25 22:00 06/20/25 09:39 50 MG Ethambutol HCl 1,600 mg DAILY PO 06/16/25 13:00 06/20/25 09:37 1,600 MG Isoniazid 300 mg DAILY PO 06/16/25 13:00 06/20/25 09:37 300 MG Pyrazinamide 2,000 mg DAILY PO 06/16/25 13:00 06/20/25 09:37 2,000 MG Clotrimazole 1 applic Q12HR TOP 06/16/25 22:00 Diphenhydramine HCl 25 mg Q6HP PRN PO 06/17/25 10:45 06/19/25 20:27 25 MG objective Gen.: Patient lying in bed in no apparent distress. Breathing on room air. Head: Normocephalic, atraumatic. Eyes: EOMI/PERRLA. Ears: Normal hearing. Normal anatomy. Neck/trachea: Trachea midline, supple. Nose: Normal external anatomy. Mouth: Moist mucous membranes. Chest: Decreased air entry bilaterally. No wheezing or rhonchi. Cardiovascular: Positive S1, positive S2. Regular rate and rhythm. Abdomen: Positive bowel sounds in all 4 quadrants. Soft, non-tender, non- distended. : Deferred. Rectal: Deferred. Skin: Warm, dry. Intact. Extremities: 2+ radial pulses bilaterally. No lower extremity edema. Neuro: Awake, alert, oriented x3. No gross motor or sensory deficits. Cranial nerves II through XII intact. Gait not assessed. laboratory and microbiology Laboratory Tests 06/13/25 05:09 Test 06/13/25 05:09 Range/Units Serum Glucose 80 74-106 mg/dL Assessment/Plan Impression: Bilateral hilar lymphadenopathy Cough- nonproductive, chronic Sarcoidosis, possible Chest pain Obesity, BMI 30 Nonadherence Events: Patient seen and examined at bedside. Remains on room air No distress Incentive spirometry S/p skin biopsy - follow up pathology AFB smears negative x3. Sputum samples pending x3 Lung biopsy AFB positive Interferon positive Follow up ID recommendations - F/u PAO. TB treatment per ID. Repeat blood cultures showing no growth. Positive QuantiFERON HIV negative. Continue RIPE therapy. Patient is refusing Lovenox - pt is ambulating. Patient is stable for discharge if OK from the ID standpoint Disposition per hospitalist. Plan: Supplemental oxygen as needed Titrate to maintain sats above 92%. Incentive spirometry Bronchodilators PRN Follow up with ID for antituberculosis therapy - on RIPE therapy. F/u general surgery for skin lesion bx for pathology and microbiology Diurese with Lasix Monitor renal function. Monitor electrolytes. Supplement as necessary. Monitor ins and outs. Diet and lifestyle modifications for weight reduction Obesity - complicates all care Prognosis: Poor given patient's multiple co-morbidities. Rest of plan per hospitalist and other consultants. Thank you, Dr. Orozco, for allowing me to participate in this patient's care. Further recommendations will depend on the patient's clinical course. Please do not hesitate to contact me if you have any questions or concerns. This medical document was created using an electronic medical record system with [employer] dictation system. Although these documentations are being carefully reviewed, there may still be some phonetic and typographical changes. The errors are purely typographical, due to imperfection on the software program, and do not reflect any compromise in the patient's medical care. Dietary Evaluation Review Comments: Continue current POC Expected Outcomes/Goals: To meet >75% estimated needs Lab values to improve Fu 3-5 days Plan discussed with: Patient, Other (SHERRY Katz) ROSA MORENO MD Jun 20, 2025 23:51
[2025-06-21] VITALS (7 sets, daily range): BP systolic 104–121; BP diastolic 65–88; PULSE 73–112; RESP 14–19; TEMP 97.1–98; O2SAT 96–100
[2025-06-21 10:56] LABS: Hematocrit 36.8 % (36.0-46.0); Hemoglobin 12.4 g/dL (12.2-16.2); Mean Corpuscular Hemoglobin 28.0 pg (28.0-32.0); Mean Corpuscular Volume 83.3 fL (80.0-100.0); Nucleated Red Blood Cells % 0.2 %
[2025-06-21 11:20] LABS: Alanine Aminotransferase 40 U/L (7-40); Albumin 4.0 g/dL (3.2-4.8); Alkaline Phosphatase 101 U/L (46-116); Anion Gap 7 (5-15); BUN/Creatinine Ratio 14.1 (10.0-20.0); Blood Urea Nitrogen 13 mg/dL (9-23); Calcium 10.5 mg/dL (8.7-10.4); Carbon Dioxide 28 mmol/L (20-31); Chloride 104 mmol/L (98-107); Glucose 82 mg/dL (74-106); Potassium 4.0 mmol/L (3.5-5.1); Sodium 139 mmol/L (136-145); Total Protein 7.6 g/dL (5.7-8.2)
[2025-06-21 11:21] LABS: Bilirubin, Total 0.3 mg/dL (0.2-1.0)
[2025-06-21] MEDS ORDERED: ETHA400T20 PO (17:35)
[2025-06-21] MEDS ORDERED: ISON300T68 PO (17:35)
[2025-06-21] MEDS ORDERED: ASPI-325 PO (17:35)
[2025-06-21] MEDS ORDERED: CARV-214 PO (17:35)
[2025-06-21] MEDS ORDERED: LISI-275 PO (17:35)
[2025-06-21] MEDS ORDERED: RIFA300C58 PO (17:35)
[2025-06-21] MEDS ORDERED: EMPA1TAB PO (17:35)
[2025-06-21] MEDS ORDERED: SPIR25TA PO (17:35)
[2025-06-21] MEDS ORDERED: FURO20TA4 PO (17:35)
[2025-06-21] MEDS ORDERED: PYRI50TA9 PO (17:35)
--- NOTE | 2025-06-21 19:42 | DVHDSRES ---
Discharge Summary Date of Admission Resident Creating Document: NENA DIOP RESIDENT Jun 07, 2025 at 00:29 Date of Discharge: Jun 21, 2025 Admitting Diagnosis Shortness of breath Labs/Diagnostic Data: Laboratory Results Test 06/21/25 10:00 06/20/25 06:44 06/17/25 10:00 06/15/25 18:45 White Blood Count 6.3 10^3/uL (4.4-10.8) Red Blood Count 4.42 10^6/uL (4.0-5.20) Hemoglobin 12.4 g/dL (12.2-16.2) Hematocrit 36.8 % (36.0-46.0) Mean Corpuscular Volume 83.3 fL (80.0-100.0) Mean Corpuscular Hemoglobin 28.0 pg (28.0-32.0) Mean Corpuscular Hemoglobin Concent 33.7 g/dL (32.0-36.0) Red Cell Distribution Width 16.7 % (11.8-14.3) Platelet Count 338 10^3/uL (140-450) Mean Platelet Volume 7.2 fL (6.9-10.8) Neutrophils (%) (Auto) 74.1 % (37.0-80.0) Lymphocytes (%) (Auto) 14.1 % (10.0-50.0) Monocytes (%) (Auto) 8.4 % (0.0-12.0) Eosinophils (%) (Auto) 2.5 % (0.0-7.0) Basophils (%) (Auto) 0.9 % (0.0-2.0) Neutrophils # (Auto) 4.7 10 ^3/uL (1.6-8.6) Lymphocytes # (Auto) 0.9 10 ^3/uL (0.4-5.4) Monocytes # (Auto) 0.5 10 ^3/uL (0-1.3) Eosinophils # (Auto) 0.2 10 ^3/uL (0-0.8) Basophils # (Auto) 0.1 10 ^3/uL (0-0.2) Nucleated Red Blood Cells 0.2 % Sodium Level 139 mmol/L (136-145) Potassium Level 4.0 mmol/L (3.5-5.1) Chloride Level 104 mmol/L (98-107) Carbon Dioxide Level 28 mmol/L (20-31) Anion Gap 7 (5-15) Blood Urea Nitrogen 13 mg/dL (9-23) Creatinine 0.92 mg/dL (0.550-1.02) Glomerular Filtration Rate Calc 84 mL/min (>90) BUN/Creatinine Ratio 14.1 (10.0-20.0) Serum Glucose 82 mg/dL (74-106) Calcium Level 10.5 mg/dL (8.7-10.4) Total Bilirubin 0.3 mg/dL (0.2-1.0) Aspartate Amino Transferase (AST) 37 U/L (13-40) Alanine Aminotransferase (ALT) 40 U/L (7-40) Alkaline Phosphatase 101 U/L (46-116) Total Protein 7.6 g/dL (5.7-8.2) Albumin 4.0 g/dL (3.2-4.8) Direct Bilirubin 0.2 mg/dL (<0.3) Miscellaneous Referred Test (Refrg) [facility] Urine Test Negative (Negative) Test 06/15/25 14:06 06/14/25 15:06 06/12/25 05:02 06/10/25 12:59 Beta HCG, Quantitative 0.8 mIU/mL (1.5-4.2) HIV (1&2) Antibody Negative (Negative) Coccidioides Antibody (Comp Fix) <1:2 (<1:2) TB Test (QFT) Gold Plus Positive (Negative) TB Test (QFT) Nil 0.37 IU/mL (.) TB Test (QFT) Mitogen >10.00 IU/mL (.) TB Test (QFT) Antigen 1 2.10 IU/mL (.) TB Test (QFT) Antigen 2 1.88 IU/mL (.) TB Test (QFT) Criteria Comment (.) Test 06/09/25 11:40 06/08/25 14:22 06/08/25 11:50 06/07/25 19:10 Prothrombin Time 11.4 sec (9.3-11.8) Prothrombin Time INR 1.08 (0.9-1.15) Activated Partial Thromboplast Time 31.6 SEC (24.5-34.5) Rheumatoid Factor 12.9 IU/mL (<14.0) Anti-Nuclear Antibody Screen Negative (Negative) Urine Color Yellow (Yellow) Urine Clarity Clear (Clear) Urine pH 5.5 (5.0-9.0) Urine Specific [place] 1.032 (1.001-1.035) Urine Protein 1+ (Negative) Urine Ketones Negative (Negative) Urine Blood Negative /uL (Negative) Urine Nitrite Negative (Negative) Urine Bilirubin Negative (Negative) Urine Urobilinogen 3 mg/dL (Negative) Urine Leukocyte Esterase Negative /uL (Negative) Urine RBC 3 /hpf (0 - 4) Urine Microscopic WBC 2 /HPF (0-5) Urine Squamous Epithelial Cells Few /hpf (<5) Urine Bacteria None seen /hpf (None Seen) Urine Mucus Few (None Seen) Urine Glucose 3+ mg/dL (Normal) Angiotensin Converting Enzyme 82 U/L (14-82) Test 06/07/25 12:15 06/07/25 10:13 06/06/25 23:48 06/06/25 21:07 Influenza Type A Antigen Negative (Negative) Influenza Type B Antigen Negative (Negative) SARS-CoV-2 Antigen (Rapid) Negative (NEGATIVE) Erythrocyte Sedimentation Rate 90 mm/hr (0-20) Lactic Acid Level 1.5 mmol/L (0.4-2.0) Magnesium Level 1.9 mg/dL (1.6-2.6) C-Reactive Protein High Sensitivity 5.17 mg/dL (<1.0) Hepatitis B Surface Antigen Negative (Negative) Hepatitis C Antibody Negative (Negative) Troponin I High Sensitivity 8 ng/L (</=34) Urine Hyaline Casts Few /lpf (0 - 2) Test 06/06/25 20:46 D-Dimer, Quantitative 1.84 mg/L FEU (0.0-0.49) B-Type Natriuretic Peptide 695.73 pg/mL (0-100) Other Laboratory Tests 06/21/25 10:00 Brief Hx & Hospital Course: This is a 34-year-old female with prior medical history of chronic heart failure, hypertension, heavy tobacco use, homelessness, methamphetamine use who presented to the ED with chief complaint of shortness of breath. patient states symptoms began 2 days prior to presentation, with progressively worsening shortness of breath associated with intermittent left-sided chest pain, described as sharp in nature, intensity 7/10, nonradiating, without exacerbation nor relief. Associated with cough, which began 1 month prior, with yellow expectoration. Additionally refers chills, nausea, and diaphoresis, but denied fever. evaluation in the ED patient was found in moderate distress, febrile, and tachycardic. Initial labs show WBCs 7.6, troponins negative, BNP 695.73. chest x-ray shows enlargement of cardiomediastinal silhouette with prominence of perihilar spaces, clear lungs with no pleural effusion or pneumothorax. Given D-dimer was elevated, CT angio ruled out pulmonary embolism, but showed diffuse confluence mediastinal and bilateral hilar lymphadenopathy, right lower lobe pleural-based pulmonary nodule, cardiomegaly with moderate pericardial effusion. Respiratory viral panel was negative, and cultures were sent. Patient was admitted for further workup and monitoring. She was started on Lasix, GDMT, and antibiotics due to suspicions of pneumonia. Echocardiogram showed dilated all cardiac chambers with EF only 15%. Pulmonology was consulted recommended incentive spirometry, antibiotics, breathing treatments, suspicious for sarcoidosis. workup for sarcoidosis was significant for CRP 5.17 and BERNADETTE at the upper limit of normality. Due to physical examination findings of edema and nodule palpated in bilateral legs, workup for erythema nodosum was done. TYLER screen was 12.9. IR was consulted for biopsy of hilar lymphadenopathy. Supraclavicular lymph node was biopsied on 06/09/2025 positive for MTP necrotizing granulomas. Patient was placed in isolation pending confirmation of TB. Follow up QuantiFERON was positive. Infectious disease was consulted, HIV tests and tests were sent and were negative, RIPE was initiated. The Department of Health was contacted for discharge criteria. All follow up sputum cultures and testing were done per Department of Health criteria. Three sputum cultures have been AFB negative, and two PCR tests have also been negative. Patient has completed over 5 days of RIPE therapy. Today, Dr. Farrell from infectious disease was contacted to evaluate possibility of discharge. He stated that per criteria the patient would be considered safe, however given that her insurance is out of [facility] had to approve her discharge. [facility] answered that another test would be required in order to approve her discharge, however, the patient stated she wanted to go AMA. She was counseled about the benefits of staying and completing total work up as per the [facility] as well as risks to herself or others, she stated she understood the risks and still wanted to leave. Dr. Farrell was contacted, who stated that patient given the above mentioned, the patient is currently considered non-contagious and can leave AMA with RIPE regimen and follow up with him. It was confirmed with Dr. Farrell that she would leave with Ethambutol 1600 mg PO daily for 30 days, Isoniazid 300 mg PO daily for 30 days, Rifampin 600 mg PO daily 30 days, Pyridoxine 50 mg PO daily these were to be sent to her pharmacy. Pyrazinamide 2g PO daily for 30 days was unable to be sent to her pharmacy, the patient and ID specialist Dr. Farrell were contacted for further clarification. per Dr. Farrell, he will send the pyrazinamide to patient's pharmacy. The risks of leaving were explained on multiple occasions, the patient states she accepts the risks, signed her AMA paperwork and subsequently left. Consults/Reason for consult Pulmonology was consulted Infectious disease was consulted due to TB Operations or Procedures CHEST RADIOGRAPH Indication: CP Technique: Frontal and lateral view of the chest was obtained Comparison: None FINDINGS/IMPRESSION: There is enlargement of the cardiomediastinal silhouette with prominence of the perihilar spaces. The lungs are clear. No pleural effusion or pneumothorax. No acute osseous abnormality. CTA Chest with intravenous contrast INDICATION: sob/cp COMPARISON: None TECHNIQUE: Multidetector spiral CTA of the chest was performed of the chest with intravenous contrast. PULMONARY ANGIOGRAPHY PROTOCOL was utilized using a bolus- tracking technique centered on the main pulmonary artery. Axial, coronal and sagittal multiplanar and MIP reformats were performed. Radiation Dose : 1. Chest: CTDI volume is 5.92 mGy. Dose-length product is 750.22 mGy*cm The dose indicators for CT are the volume Computed Tomography (CT) Dose Index (CTDIvol) and the Dose Length Product (DLP), and are measured in units of mGy and mGy-cm, respectively. These indicators are not patient dose, but values generated from the CT scanner acquisition factors. The report includes radiation exposure data for exposures received during this examination. Findings: Pulmonary artery: No pulmonary embolism. The main pulmonary artery measures 2.9 cm in the ascending thoracic aorta measures 2.6 cm. Lower neck: Normal thyroid. Lungs: No focal consolidation, pleural effusion or pneumothorax. Pleural-based nodular density within the right lower lobe measuring 1.3 cm (series 3, image 45). Partial collapse of the right middle lobe with associated atelectasis. Heart/Vascular Structures: The heart is enlarged and there is small to moderate pericardial effusion. Lymph Nodes: Diffuse confluent lymphadenopathy is noted throughout the mediastinum and bilateral hilar regions. Musculoskeletal: No acute osseous abnormality. Soft tissues: Normal. Upper abdomen: Limited portions of the upper abdomen are unremarkable status post cholecystectomy. IMPRESSION: 1. No pulmonary embolism. 2. Diffuse confluence mediastinal and bilateral hilar lymphadenopathy. 3. Cardiomegaly and small to moderate pericardial effusion. 4. Right lower lobe pleural-based pulmonary nodule and partial collapse of the right middle lobe with associated atelectasis. ROCEDURE(s): BLDVT - BiLat Lower DVT REASON: leg tenderness ORDER NUMBER(s): [id number], ACCESSION NUMBER(s): [id number] Bilateral lower extremity venous duplex Clinical History: leg tenderness Comparison: None Technique: Duplex Doppler evaluation of the deep venous systems of both lower extremities from the common femoral veins to the popliteal veins including color Doppler and spectral/pulsed waveform analysis was performed. Findings: RIGHT SIDE: The common femoral vein demonstrates appropriate compressibility and waveform variability. There is compressibility/patency of the great saphenous vein at the proximal thigh. The femoral vein demonstrates appropriate compressibility and waveform variability. The deep femoral vein demonstrates appropriate compressibility and waveform variability. The popliteal vein demonstrates appropriate compressibility and waveform variability. There is normal compressibility at the tibioperoneal trunk. LEFT SIDE: The common femoral vein demonstrates appropriate compressibility and waveform variability. There is compressibility/patency of the great saphenous vein at the proximal thigh. The femoral vein demonstrates appropriate compressibility and waveform variability. The deep femoral vein demonstrates appropriate compressibility and waveform variability. The popliteal vein demonstrates appropriate compressibility and waveform variability. There is normal compressibility at the tibioperoneal trunk. Impression: 1. No right or left femoropopliteal venous thrombosis. US SOFT TISSUE NECK, HISTORY: lymphadenopathy. TECHNICAL DATA: Transverse and longitudinal sonographic images were obtained of the right neck. COMPARISON: None FINDINGS: IMPRESSION: 2.2 x 1.2 x 1.4 cm abnormal right supraclavicular lymph node. US US GUIDANCE FOR NEEDLE PLACEME, HISTORY: LYMPHNODE BIOPSY PROCEDURE: Informed consent was obtained. Limited ultrasound of the right supraclavicular lymph node was obtained. The overlying skin was prepped with chlorhexidine which was allowed to dry and draped in the usual sterile fashion. Time out was performed. The skin and soft tissue were infiltrated with 1% lidocaine. Under real-time ultrasound guidance, 4 biopsy specimens were obtained using [employer] 18 gauge core biopsy needle. Samples placed into formalin and RPMI. Post biopsy scan was performed. No immediate complication was noted. FINDINGS: Limited intraprocedural ultrasound demonstrates biopsy needle within right supraclavicular lymph node. IMPRESSION: Successful ultrasound biopsy of the right supraclavicular lymph node. Pathology results pending. Condition at Discharge: Undetermined Final Diagnosis/Problems List Disseminated TB Shortness of breath likely due to HFrEF with exacerbation and TB Possible PNA, gram positive/gram negative Acute Chest Pain, ACS ruled out, likely due to above Acute on Chronic HFrEF Drug induced cardiomyopathy History of methamphetamine use Grampositive bacteremia, likely due to contamination Hypokalemia, resolved Right lower lobe pleural based pulmonary nodule Partial collapse of rught middle lobe with associated atelectasis Possible sarcoidosis Erythema nodosum ruled out Polysubstance use diorder Discharge Disposition: AMA Discharge Instruct/Medications Activity: No Restrictions, As Tolerated Scheduled Aspirin (Aspirin Low Dose), 81 MG PO DAILY Carvedilol (Coreg), 6.25 MG PO Q12H Empagliflozin (Jardiance), 10 MG PO DAILY Ethambutol Hcl (Ethambutol Hcl), 1,600 MG PO DAILY Furosemide (Furosemide), 40 MG PO DAILY Isoniazid (Isoniazid), 300 MG PO DAILY Lisinopril (Lisinopril), 10 MG PO DAILY@1400 Pyridoxine HCl (Vitamin B-6), 50 MG PO DAILY Rifampin (Rifampin), 600 MG PO DAILY Spironolactone (Aldactone), 25 MG PO DAILY Discharge Statement: "Patient was advised to return to the ER or call 911 if any headaches, dizziness, shortness of breath, chest pain, abdominal pain, bleeding, fevers, or worsening of medical condition. Patient was counseled about treatment plan, medications, possible side effects, patientverbalized understanding. All questions were answered to the best of my ability. This discharge took greater then 30 minutes in planning, reviewing documentation, counseling the patient, and discussing with other team members." ASSESSMENT ASSESSMENT Assessment Acute Abdominal pain Date of Service: Jun 21, 2025 Billing Provider: MENDY PRESTON MD Common Visit Codes: 19549-DYL/OBS DISCH DAY >30min NENA DIOP RESIDENT Jun 21, 2025 19:42 MENDY PRESTON MD Jun 22, 2025 21:36
--- NOTE | 2025-06-21 22:21 | DVHPN2 ---
Progress Note - Dictate Date Seen: Jun 21, 2025 Medical Necessity Reason Pt with a Central, PICC or Fol: No Subjective Patient seen and examined at bedside. Breathing comfortably on room air. Overnight events reviewed. vital signs Vital Sign Date Time Temp Pulse Resp B/P (MAP) Pulse Ox O2 Delivery O2 Flow Rate FiO2 06/21/25 17:00 98.0 112 19 121/88 (99) 100 98.0 06/21/25 10:00 Room Air 0.0 06/21/25 10:00 21 Total Intake and Output 06/20/25 06/20/25 06/21/25 15:00 23:00 07:00 Intake Total 600 ml 700 ml Balance 600 ml 700 ml objective Gen.: Patient lying in bed in no apparent distress. Breathing on room air. Head: Normocephalic, atraumatic. Eyes: EOMI/PERRLA. Ears: Normal hearing. Normal anatomy. Neck/trachea: Trachea midline, supple. Nose: Normal external anatomy. Mouth: Moist mucous membranes. Chest: Decreased air entry bilaterally. No wheezing or rhonchi. Cardiovascular: Positive S1, positive S2. Regular rate and rhythm. Abdomen: Positive bowel sounds in all 4 quadrants. Soft, non-tender, non- distended. : Deferred. Rectal: Deferred. Skin: Warm, dry. Intact. Extremities: 2+ radial pulses bilaterally. No lower extremity edema. Neuro: Awake, alert, oriented x3. No gross motor or sensory deficits. Cranial nerves II through XII intact. Gait not assessed. laboratory and microbiology Laboratory Tests 06/21/25 10:00 Test 06/21/25 10:00 Range/Units Serum Glucose 82 74-106 mg/dL Assessment/Plan Impression: Bilateral hilar lymphadenopathy Cough- nonproductive, chronic Sarcoidosis, possible Chest pain Obesity, BMI 30 Nonadherence Events: Patient seen and examined at bedside. Remains on room air No distress Incentive spirometry S/p skin biopsy - follow up pathology AFB smears negative x3. Sputum cultures and testing were done per Department of Health criteria. Three sputum cultures have been AFB negative, and two PCR tests have also been negative. Lung biopsy AFB positive Interferon positive Follow up ID recommendations - F/u PAO. TB treatment per ID. Repeat blood cultures showing no growth. Positive QuantiFERON HIV negative. Continue RIPE therapy. Follow up with Infection Control. Patient refused Lovenox - pt is ambulating. Patient is stable for discharge if OK from the ID standpoint Disposition per hospitalist. Plan: Supplemental oxygen as needed Titrate to maintain sats above 92%. Incentive spirometry Bronchodilators PRN Follow up with ID for antituberculosis therapy - on RIPE therapy. F/u general surgery for skin lesion bx for pathology and microbiology Diurese with Lasix Monitor renal function. Monitor electrolytes. Supplement as necessary. Monitor ins and outs. Diet and lifestyle modifications for weight reduction Obesity - complicates all care Prognosis: Poor given patient's multiple co-morbidities. Rest of plan per hospitalist and other consultants. Thank you, Dr. Orozco, for allowing me to participate in this patient's care. Further recommendations will depend on the patient's clinical course. Please do not hesitate to contact me if you have any questions or concerns. This medical document was created using an electronic medical record system with [employer] dictation system. Although these documentations are being carefully reviewed, there may still be some phonetic and typographical changes. The errors are purely typographical, due to imperfection on the software program, and do not reflect any compromise in the patient's medical care. Dietary Evaluation Review Comments: Continue current POC Expected Outcomes/Goals: To meet >75% estimated needs Lab values to improve Fu 3-5 days Plan discussed with: Patient, Other (SHERRY Sethi) ROSA MORENO MD Jun 21, 2025 22:21
--- NOTE | 2025-06-22 07:06 | DVHPN2 ---
Consult Progress Note Date Seen: Jun 17, 2025 Subjective Patient reports: Other (persistent cough , no thick sputum . has provided 3 samples MTB PCRs . history of homelessness . awaiting preliminary results ) Objective vital signs Vital Sign Date Time Temp Pulse Resp B/P (MAP) Pulse Ox O2 Delivery O2 Flow Rate FiO2 06/21/25 17:00 98.0 112 19 121/88 (99) 100 98.0 06/21/25 10:00 Room Air 0.0 06/21/25 10:00 21 Total Intake and Output 06/21/25 06/21/25 06/22/25 15:00 23:00 07:00 Intake Total 650 ml Balance 650 ml medications Current Medications Medications Dose Ordered Sig/Topher Route Start Time Stop Time Status Last Admin Dose Admin Pyrazinamide 2,000 mg DAILY PO 06/22/25 10:00 Physical Exam: General: NAD Neck: Supple. No masses. Enlarged cervical and supraclavicular lymph nodes. HEENT: PERRL. Normal lids and conjunctiva. Moist mucous membranes. Oropharynx without lesions, exudates or excessive erythema. Normal appearance of the external aspects of the nose and ears. Heart: Regular rhythm, normal rate. No murmur. No lower extremity edema. Lungs: Normal respiratory effort. Coarse cough. Clear to auscultation bilaterally. No wheezes. No crackles. Abdomen: Soft. Non-tender. Non-distended. No masses or abdominal hernia. Msk: No digital cyanosis. Normal strength and tone in all 4 limbs Skin: Warm and dry, no rashes. Neuro: Alert. No facial droop or slurred speech. Extra-ocular movements intact. Sensation intact to soft touch in all 4 limbs. Psych: Appropriate mood. Full affect. Oriented to person, place, time, and situation. 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 female with a history of recurrent pulmonary edema, presenting with two days of worsening shortness of breath, left-sided pressure-like chest pain, and nonproductive cough. She reports being out of her Lasix for a week prior to admission. On admission, patient was tachycardic, and noted to have enlarged cervical and supraclavicular lymph nodes. Home medications were restarted and echocardiogram obtained. Imaging findings (CXR, CTA chest) are notable for: -Enlargement of the cardiomediastinal silhouette -Prominence of perihilar spaces -Cardiomegaly -Small to moderate pericardial effusion -Right lower lobe pleural-based pulmonary nodule (1.3 cm) -Partial collapse of right middle lobe -Diffuse mediastinal and basilar hilar lymphadenopathy -Pulmonary embolism Biopsies and laboratory findings: -Initial blood cultures positive for Staph epidermidis in 1/4 bottles, likely contaminant; subsequent cultures negative. -Sputum culture: normal pharyngeal arturo. -TB QuantiFERON pending, HIV/Influenza/COVID-19 all negative. -Soft tissue ultrasound shows abnormal right supraclavicular lymph node (2.2 x 1.2 x 1.4 cm). Ultrasound-guided biopsy performed, results pending. -No evidence of DVT on Doppler ultrasound. 06/13: awaiting to get formal TB rule out , history of homelessness and weight loss . 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 HIV test negative, check test prior to starting RIPE 06/16: test is negative , denies havign any sexual contacts . infection appears responding to antifungal therapy . 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 HIV test negative 06/17: per [facility] defer outpatient management to [facility] based off patients insurance . [place] [facility] would like to see patients lymph node biopsy results . Plan: - will discuss with pathology department to add MTB PCR testing to biopsied sample - undergo MTB PCR testing to confirm that this is a Microbacterium TB infection and not another mycobacterial infection such as nocardia - continue RIPE at this time for disseminated TB. - defer to department of public on discharge criteria - patient can fu in ID clinic in 1-2 weeks for ongoing management of disseminated TB. - f/u on pending sputum and biopsy results - send for HIV testing \-- Recommend follow-up in infectious disease clinic in 2-4 weeks to review biopsy and any additional findings. \-- Monitor for potential dissemination or alternative diagnosis if granulomatous disease is identified. \-- Cardiology to manage pericardial effusion and recurrent pulmonary edema; reinforce adherence to medications including Lasix. \-- Continue to monitor for new symptoms or deterioration. Isolation Precautions: TB, droplet and contact precautions Plan discussed with: Other Dietary Evaluation Review Comments: Continue current POC Expected Outcomes/Goals: To meet >75% estimated needs Lab values to improve Fu 3-5 days MIKY DAVIS MD Jun 22, 2025 07:06
--- NOTE | 2025-06-22 07:06 | DVHPN2 ---
Consult Progress Note Date Seen: Jun 18, 2025 Subjective Patient reports: Other (eager to go home , does not want to wait for [facility] approval . has rails in the lungs bilaterally , persistant cough ) Objective vital signs Vital Sign Date Time Temp Pulse Resp B/P (MAP) Pulse Ox O2 Delivery O2 Flow Rate FiO2 06/21/25 17:00 98.0 112 19 121/88 (99) 100 98.0 06/21/25 10:00 Room Air 0.0 06/21/25 10:00 21 Total Intake and Output 06/21/25 06/21/25 06/22/25 15:00 23:00 07:00 Intake Total 650 ml Balance 650 ml medications Current Medications Medications Dose Ordered Sig/Topher Route Start Time Stop Time Status Last Admin Dose Admin Pyrazinamide 2,000 mg DAILY PO 06/22/25 10:00 Physical Exam: General: NAD Neck: Supple. No masses. Enlarged cervical and supraclavicular lymph nodes. HEENT: PERRL. Normal lids and conjunctiva. Moist mucous membranes. Oropharynx without lesions, exudates or excessive erythema. Normal appearance of the external aspects of the nose and ears. Heart: Regular rhythm, normal rate. No murmur. No lower extremity edema. Lungs: Normal respiratory effort. Coarse cough. Clear to auscultation bilaterally. No wheezes. No crackles. Abdomen: Soft. Non-tender. Non-distended. No masses or abdominal hernia. Msk: No digital cyanosis. Normal strength and tone in all 4 limbs Skin: Warm and dry, no rashes. Neuro: Alert. No facial droop or slurred speech. Extra-ocular movements intact. Sensation intact to soft touch in all 4 limbs. Psych: Appropriate mood. Full affect. Oriented to person, place, time, and situation. 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 female with a history of recurrent pulmonary edema, presenting with two days of worsening shortness of breath, left-sided pressure-like chest pain, and nonproductive cough. She reports being out of her Lasix for a week prior to admission. On admission, patient was tachycardic, and noted to have enlarged cervical and supraclavicular lymph nodes. Home medications were restarted and echocardiogram obtained. Imaging findings (CXR, CTA chest) are notable for: -Enlargement of the cardiomediastinal silhouette -Prominence of perihilar spaces -Cardiomegaly -Small to moderate pericardial effusion -Right lower lobe pleural-based pulmonary nodule (1.3 cm) -Partial collapse of right middle lobe -Diffuse mediastinal and basilar hilar lymphadenopathy -Pulmonary embolism Biopsies and laboratory findings: -Initial blood cultures positive for Staph epidermidis in 1/4 bottles, likely contaminant; subsequent cultures negative. -Sputum culture: normal pharyngeal arturo. -TB QuantiFERON pending, HIV/Influenza/COVID-19 all negative. -Soft tissue ultrasound shows abnormal right supraclavicular lymph node (2.2 x 1.2 x 1.4 cm). Ultrasound-guided biopsy performed, results pending. -No evidence of DVT on Doppler ultrasound. 06/13: awaiting to get formal TB rule out , history of homelessness and weight loss . 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 HIV test negative, check test prior to starting RIPE 06/16: test is negative , denies havign any sexual contacts . infection appears responding to antifungal therapy . 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 HIV test negative 06/17: per [facility] defer outpatient management to [facility] based off patients insurance . [facility] would like to see patients lymph node biopsy results . 06/18: no worsening clinical symptoms , off ceftriaxone and doxycycline . no ongoing suspicion for bacterial pneumonia at this time Plan: - will discuss with pathology department to add MTB PCR testing to biopsied sample - undergo MTB PCR testing to confirm that this is a Microbacterium TB infection and not another mycobacterial infection such as nocardia - continue RIPE at this time for disseminated TB. - defer to department of public on discharge criteria - patient can fu in ID clinic in 1-2 weeks for ongoing management of disseminated TB. - f/u on pending sputum and biopsy results - send for HIV testing \-- Recommend follow-up in infectious disease clinic in 2-4 weeks to review biopsy and any additional findings. \-- Monitor for potential dissemination or alternative diagnosis if granulomatous disease is identified. \-- Cardiology to manage pericardial effusion and recurrent pulmonary edema; reinforce adherence to medications including Lasix. \-- Continue to monitor for new symptoms or deterioration. Isolation Precautions: TB, droplet and contact precautions Plan discussed with: Other Dietary Evaluation Review Comments: Continue current POC Expected Outcomes/Goals: To meet >75% estimated needs Lab values to improve Fu 3-5 days MIKY DAVIS MD Jun 22, 2025 07:06
--- NOTE | 2025-06-22 07:06 | DVHPN2 ---
Consult Progress Note Date Seen: Jun 19, 2025 Subjective Patient reports: Other (no fevers or chills . pending sputum results ) Objective vital signs Vital Sign Date Time Temp Pulse Resp B/P (MAP) Pulse Ox O2 Delivery O2 Flow Rate FiO2 06/21/25 17:00 98.0 112 19 121/88 (99) 100 98.0 06/21/25 10:00 Room Air 0.0 06/21/25 10:00 21 Total Intake and Output 06/21/25 06/21/25 06/22/25 15:00 23:00 07:00 Intake Total 650 ml Balance 650 ml medications Current Medications Medications Dose Ordered Sig/Topher Route Start Time Stop Time Status Last Admin Dose Admin Pyrazinamide 2,000 mg DAILY PO 06/22/25 10:00 Physical Exam: General: NAD Neck: Supple. No masses. Enlarged cervical and supraclavicular lymph nodes. HEENT: PERRL. Normal lids and conjunctiva. Moist mucous membranes. Oropharynx without lesions, exudates or excessive erythema. Normal appearance of the external aspects of the nose and ears. Heart: Regular rhythm, normal rate. No murmur. No lower extremity edema. Lungs: Normal respiratory effort. Coarse cough. Clear to auscultation bilaterally. No wheezes. No crackles. Abdomen: Soft. Non-tender. Non-distended. No masses or abdominal hernia. Msk: No digital cyanosis. Normal strength and tone in all 4 limbs Skin: Warm and dry, no rashes. Neuro: Alert. No facial droop or slurred speech. Extra-ocular movements intact. Sensation intact to soft touch in all 4 limbs. Psych: Appropriate mood. Full affect. Oriented to person, place, time, and situation. 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 female with a history of recurrent pulmonary edema, presenting with two days of worsening shortness of breath, left-sided pressure-like chest pain, and nonproductive cough. She reports being out of her Lasix for a week prior to admission. On admission, patient was tachycardic, and noted to have enlarged cervical and supraclavicular lymph nodes. Home medications were restarted and echocardiogram obtained. Imaging findings (CXR, CTA chest) are notable for: -Enlargement of the cardiomediastinal silhouette -Prominence of perihilar spaces -Cardiomegaly -Small to moderate pericardial effusion -Right lower lobe pleural-based pulmonary nodule (1.3 cm) -Partial collapse of right middle lobe -Diffuse mediastinal and basilar hilar lymphadenopathy -Pulmonary embolism Biopsies and laboratory findings: -Initial blood cultures positive for Staph epidermidis in 1/4 bottles, likely contaminant; subsequent cultures negative. -Sputum culture: normal pharyngeal arturo. -TB QuantiFERON pending, HIV/Influenza/COVID-19 all negative. -Soft tissue ultrasound shows abnormal right supraclavicular lymph node (2.2 x 1.2 x 1.4 cm). Ultrasound-guided biopsy performed, results pending. -No evidence of DVT on Doppler ultrasound. 06/13: awaiting to get formal TB rule out , history of homelessness and weight loss . 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 HIV test negative, check test prior to starting RIPE 06/16: test is negative , denies havign any sexual contacts . infection appears responding to antifungal therapy . 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 HIV test negative 06/16: test is negative , denies havign any sexual contacts . infection appears responding to antifungal therapy . 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 HIV test negative 06/17: per [facility] defer outpatient management to [facility] based off patients insurance . [facility] would like to see patients lymph node biopsy results . 06/18: no worsening clinical symptoms , off ceftriaxone and doxycycline . no ongoing suspicion for bacterial pneumonia at this time 06/19: AFB sputums are negative x 3 , MTB PCR are still pending . is requesting MTB PCR to be done on biopsied specimen before patient can be discharged . patient is refusing to wait for this , Plan: - if patient decided to leave [place] , would recommend patient be discharge on 30 day course of RIPE therapy and monitoring of TB therapy at home daily by but no need for isolation - will discuss with pathology department to add MTB PCR testing to biopsied sample - undergo MTB PCR testing to confirm that this is a Microbacterium TB infection and not another mycobacterial infection such as nocardia - continue RIPE at this time for disseminated TB. - defer to department of public on discharge criteria - patient can fu in ID clinic in 1-2 weeks for ongoing management of disseminated TB. - f/u on pending sputum and biopsy results - send for HIV testing \-- Recommend follow-up in infectious disease clinic in 2-4 weeks to review biopsy and any additional findings. \-- Monitor for potential dissemination or alternative diagnosis if granulomatous disease is identified. \-- Cardiology to manage pericardial effusion and recurrent pulmonary edema; reinforce adherence to medications including Lasix. \-- Continue to monitor for new symptoms or deterioration. Isolation Precautions: TB, droplet and contact precautions Plan discussed with: Other Dietary Evaluation Review Comments: Continue current POC Expected Outcomes/Goals: To meet >75% estimated needs Lab values to improve Fu 3-5 days MIKY DAVIS MD Jun 22, 2025 07:06
--- NOTE | 2025-06-22 07:07 | DVHPN2 ---
Consult Progress Note Date Seen: Jun 20, 2025 Subjective Patient reports: Other (a little tachycardic , having some loose stools aw well and likely rrelated to antibiotic therapy ) Objective vital signs Vital Sign Date Time Temp Pulse Resp B/P (MAP) Pulse Ox O2 Delivery O2 Flow Rate FiO2 06/21/25 17:00 98.0 112 19 121/88 (99) 100 98.0 06/21/25 10:00 Room Air 0.0 06/21/25 10:00 21 Total Intake and Output 06/21/25 06/21/25 06/22/25 15:00 23:00 07:00 Intake Total 650 ml Balance 650 ml medications Current Medications Medications Dose Ordered Sig/Topher Route Start Time Stop Time Status Last Admin Dose Admin Pyrazinamide 2,000 mg DAILY PO 06/22/25 10:00 Physical Exam: General: NAD Neck: Supple. No masses. Enlarged cervical and supraclavicular lymph nodes. HEENT: PERRL. Normal lids and conjunctiva. Moist mucous membranes. Oropharynx without lesions, exudates or excessive erythema. Normal appearance of the external aspects of the nose and ears. Heart: Regular rhythm, normal rate. No murmur. No lower extremity edema. Lungs: Normal respiratory effort. Coarse cough. Clear to auscultation bilaterally. No wheezes. No crackles. Abdomen: Soft. Non-tender. Non-distended. No masses or abdominal hernia. Msk: No digital cyanosis. Normal strength and tone in all 4 limbs Skin: Warm and dry, no rashes. Neuro: Alert. No facial droop or slurred speech. Extra-ocular movements intact. Sensation intact to soft touch in all 4 limbs. Psych: Appropriate mood. Full affect. Oriented to person, place, time, and situation. 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 female with a history of recurrent pulmonary edema, presenting with two days of worsening shortness of breath, left-sided pressure-like chest pain, and nonproductive cough. She reports being out of her Lasix for a week prior to admission. On admission, patient was tachycardic, and noted to have enlarged cervical and supraclavicular lymph nodes. Home medications were restarted and echocardiogram obtained. Imaging findings (CXR, CTA chest) are notable for: -Enlargement of the cardiomediastinal silhouette -Prominence of perihilar spaces -Cardiomegaly -Small to moderate pericardial effusion -Right lower lobe pleural-based pulmonary nodule (1.3 cm) -Partial collapse of right middle lobe -Diffuse mediastinal and basilar hilar lymphadenopathy -Pulmonary embolism Biopsies and laboratory findings: -Initial blood cultures positive for Staph epidermidis in 1/4 bottles, likely contaminant; subsequent cultures negative. -Sputum culture: normal pharyngeal arturo. -TB QuantiFERON pending, HIV/Influenza/COVID-19 all negative. -Soft tissue ultrasound shows abnormal right supraclavicular lymph node (2.2 x 1.2 x 1.4 cm). Ultrasound-guided biopsy performed, results pending. -No evidence of DVT on Doppler ultrasound. 06/13: awaiting to get formal TB rule out , history of homelessness and weight loss . 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 HIV test negative, check test prior to starting RIPE 06/16: test is negative , denies havign any sexual contacts . infection appears responding to antifungal therapy . 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 HIV test negative 06/17: per [facility] defer outpatient management to [facility] based off patients insurance . [facility] would like to see patients lymph node biopsy results . 06/18: no worsening clinical symptoms , off ceftriaxone and doxycycline . no ongoing suspicion for bacterial pneumonia at this time 06/19: AFB sputum are negative x 3 , MTB PCR are still pending . [facility] is requesting MTB PCR to be done on biopsied specimen before patient can be discharged . patient is refusing to wait for this , 06/20: refusing medications at this point , refusing oxygen but does not need it as setting at 100% on room air . awaiting MTB PCR results Plan: - if patient decided to leave AMA , would recommend patient be discharge on 30 day course of RIPE therapy and monitoring of TB therapy at home daily by [facility] but no need for isolation - will discuss with pathology department to add MTB PCR testing to biopsied sample - undergo MTB PCR testing to confirm that this is a Microbacterium TB infection and not another mycobacterial infection such as nocardia - continue RIPE at this time for disseminated TB. - defer to department of public on discharge criteria - patient can fu in ID clinic in 1-2 weeks for ongoing management of disseminated TB. - f/u on pending sputum and biopsy results - send for HIV testing \-- Recommend follow-up in infectious disease clinic in 2-4 weeks to review biopsy and any additional findings. \-- Monitor for potential dissemination or alternative diagnosis if granulomatous disease is identified. \-- Cardiology to manage pericardial effusion and recurrent pulmonary edema; reinforce adherence to medications including Lasix. \-- Continue to monitor for new symptoms or deterioration. Isolation Precautions: TB, droplet and contact precautions Plan discussed with: Other Dietary Evaluation Review Comments: Continue current POC Expected Outcomes/Goals: To meet >75% estimated needs Lab values to improve Fu 3-5 days MIKY DAVIS MD Jun 22, 2025 07:07
--- NOTE | 2025-06-22 07:07 | DVHPN2 ---
Consult Progress Note Date Seen: Jun 21, 2025 Subjective Patient reports: Other (diarrhea appears to be slowly improving , tolerating diet , persistent cough , no chest pain ) Objective vital signs Vital Sign Date Time Temp Pulse Resp B/P (MAP) Pulse Ox O2 Delivery O2 Flow Rate FiO2 06/21/25 17:00 98.0 112 19 121/88 (99) 100 98.0 06/21/25 10:00 Room Air 0.0 06/21/25 10:00 21 Total Intake and Output 06/21/25 06/21/25 06/22/25 15:00 23:00 07:00 Intake Total 650 ml Balance 650 ml medications Current Medications Medications Dose Ordered Sig/Topher Route Start Time Stop Time Status Last Admin Dose Admin Pyrazinamide 2,000 mg DAILY PO 06/22/25 10:00 Physical Exam: General: NAD Neck: Supple. No masses. Enlarged cervical and supraclavicular lymph nodes. HEENT: PERRL. Normal lids and conjunctiva. Moist mucous membranes. Oropharynx without lesions, exudates or excessive erythema. Normal appearance of the external aspects of the nose and ears. Heart: Regular rhythm, normal rate. No murmur. No lower extremity edema. Lungs: Normal respiratory effort. Coarse cough. Clear to auscultation bilaterally. No wheezes. No crackles. Abdomen: Soft. Non-tender. Non-distended. No masses or abdominal hernia. Msk: No digital cyanosis. Normal strength and tone in all 4 limbs Skin: Warm and dry, no rashes. Neuro: Alert. No facial droop or slurred speech. Extra-ocular movements intact. Sensation intact to soft touch in all 4 limbs. Psych: Appropriate mood. Full affect. Oriented to person, place, time, and situation. 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 female with a history of recurrent pulmonary edema, presenting with two days of worsening shortness of breath, left-sided pressure-like chest pain, and nonproductive cough. She reports being out of her Lasix for a week prior to admission. On admission, patient was tachycardic, and noted to have enlarged cervical and supraclavicular lymph nodes. Home medications were restarted and echocardiogram obtained. Imaging findings (CXR, CTA chest) are notable for: -Enlargement of the cardiomediastinal silhouette -Prominence of perihilar spaces -Cardiomegaly -Small to moderate pericardial effusion -Right lower lobe pleural-based pulmonary nodule (1.3 cm) -Partial collapse of right middle lobe -Diffuse mediastinal and basilar hilar lymphadenopathy -Pulmonary embolism Biopsies and laboratory findings: -Initial blood cultures positive for Staph epidermidis in 1/4 bottles, likely contaminant; subsequent cultures negative. -Sputum culture: normal pharyngeal arturo. -TB QuantiFERON pending, HIV/Influenza/COVID-19 all negative. -Soft tissue ultrasound shows abnormal right supraclavicular lymph node (2.2 x 1.2 x 1.4 cm). Ultrasound-guided biopsy performed, results pending. -No evidence of DVT on Doppler ultrasound. 06/13: awaiting to get formal TB rule out , history of homelessness and weight loss . 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 HIV test negative, check test prior to starting RIPE 06/16: test is negative , denies havign any sexual contacts . infection appears responding to antifungal therapy . 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 HIV test negative 06/17: per [facility] defer outpatient management to [facility] based off patients insurance . [facility] would like to see patients lymph node biopsy results . 06/18: no worsening clinical symptoms , off ceftriaxone and doxycycline . no ongoing suspicion for bacterial pneumonia at this time 06/19: AFB sputum are negative x 3 , MTB PCR are still pending . [facility] is requesting MTB PCR to be done on biopsied specimen before patient can be discharged . patient is refusing to wait for this , 06/20: refusing medications at this point , refusing oxygen but does not need it as setting at 100% on room air . awaiting MTB PCR results 06/21: diarrhea appears to be slowly improving Plan: - if patient decided to leave [facility] , would recommend patient be discharge on 30 day course of RIPE therapy and monitoring of TB therapy at home daily by 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 - defer to department of public on discharge criteria - patient can fu in ID clinic in 1-2 weeks for ongoing management of disseminated TB. - f/u on pending sputum and biopsy results - send for HIV testing \-- Recommend follow-up in infectious disease clinic in 2-4 weeks to review biopsy and any additional findings. \-- Monitor for potential dissemination or alternative diagnosis if granulomatous disease is identified. \-- Cardiology to manage pericardial effusion and recurrent pulmonary edema; reinforce adherence to medications including Lasix. \-- Continue to monitor for new symptoms or deterioration. Isolation Precautions: TB, droplet and contact precautions Plan discussed with: Other Dietary Evaluation Review Comments: Continue current POC Expected Outcomes/Goals: To meet >75% estimated needs Lab values to improve Fu 3-5 days MIKY DAVIS MD Jun 22, 2025 07:07
[2025-06-22] MEDS ORDERED: PYRAZINAMIDE 500 MG TAB PO SCH (10:00)
--- NOTE | 2025-06-26 16:53 | DVHPN2 ---
Consult Progress Note Date Seen: Jun 22, 2025 Subjective Patient reports: Other Objective medications Current Medications Medications Dose Ordered Sig/Topher Route Start Time Stop Time Status Last Admin Dose Admin Pyrazinamide 2,000 mg DAILY PO 06/22/25 10:00 Physical Exam: General: NAD Neck: Supple. No masses. Enlarged cervical and supraclavicular lymph nodes. HEENT: PERRL. Normal lids and conjunctiva. Moist mucous membranes. Oropharynx without lesions, exudates or excessive erythema. Normal appearance of the external aspects of the nose and ears. Heart: Regular rhythm, normal rate. No murmur. No lower extremity edema. Lungs: Normal respiratory effort. Coarse cough. Clear to auscultation bilaterally. No wheezes. No crackles. Abdomen: Soft. Non-tender. Non-distended. No masses or abdominal hernia. Msk: No digital cyanosis. Normal strength and tone in all 4 limbs Skin: Warm and dry, no rashes. Neuro: Alert. No facial droop or slurred speech. Extra-ocular movements intact. Sensation intact to soft touch in all 4 limbs. Psych: Appropriate mood. Full affect. Oriented to person, place, time, and situation. 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 female with a history of recurrent pulmonary edema, presenting with two days of worsening shortness of breath, left-sided pressure-like chest pain, and nonproductive cough. She reports being out of her Lasix for a week prior to admission. On admission, patient was tachycardic, and noted to have enlarged cervical and supraclavicular lymph nodes. Home medications were restarted and echocardiogram obtained. Imaging findings (CXR, CTA chest) are notable for: -Enlargement of the cardiomediastinal silhouette -Prominence of perihilar spaces -Cardiomegaly -Small to moderate pericardial effusion -Right lower lobe pleural-based pulmonary nodule (1.3 cm) -Partial collapse of right middle lobe -Diffuse mediastinal and basilar hilar lymphadenopathy -Pulmonary embolism Biopsies and laboratory findings: -Initial blood cultures positive for Staph epidermidis in 1/4 bottles, likely contaminant; subsequent cultures negative. -Sputum culture: normal pharyngeal arturo. -TB QuantiFERON pending, HIV/Influenza/COVID-19 all negative. -Soft tissue ultrasound shows abnormal right supraclavicular lymph node (2.2 x 1.2 x 1.4 cm). Ultrasound-guided biopsy performed, results pending. -No evidence of DVT on Doppler ultrasound. 06/13: awaiting to get formal TB rule out , history of homelessness and weight loss . 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 HIV test negative, check test prior to starting RIPE 06/16: test is negative , denies havign any sexual contacts . infection appears responding to antifungal therapy . 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 HIV test negative 06/17: per [facility] defer outpatient management to [facility] based off patients insurance . [facility] would like to see patients lymph node biopsy results . 06/18: no worsening clinical symptoms , off ceftriaxone and doxycycline . no ongoing suspicion for bacterial pneumonia at this time 06/19: AFB sputum are negative x 3 , MTB PCR are still pending . [facility] is requesting MTB PCR to be done on biopsied specimen before patient can be discharged . patient is refusing to wait for this , 06/20: refusing medications at this point , refusing oxygen but does not need it as setting at 100% on room air . awaiting MTB PCR results 06/21: diarrhea appears to be slowly improving 06/22: patient is negative for covid-19 , HIV , influenza ab . AFB x3 is negative . 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 - defer to department of public on discharge criteria - patient can fu in ID clinic in 1-2 weeks for ongoing management of disseminated TB. - f/u on pending sputum and biopsy results - send for HIV testing \-- Recommend follow-up in infectious disease clinic in 2-4 weeks to review biopsy and any additional findings. \-- Monitor for potential dissemination or alternative diagnosis if granulomatous disease is identified. \-- Cardiology to manage pericardial effusion and recurrent pulmonary edema; reinforce adherence to medications including Lasix. \-- Continue to monitor for new symptoms or deterioration. Isolation Precautions: TB, droplet and contact precautions Plan discussed with: Other Dietary Evaluation Review Comments: Continue current POC Expected Outcomes/Goals: To meet >75% estimated needs Lab values to improve Fu 3-5 days MIKY DAVIS MD Jun 26, 2025 16:52
== END 2025-06-21 16:30 | disposition left against medical advice (07) | DRG 137 ==
LOC: ER 20:39 → OVERFLOW 06-07 00:29 → EAST 06-07 03:25
PROVIDERS: ADMIT Internal Medicine Geriatric Medicine; ATTEND Internal Medicine Geriatric Medicine
PROC: 07B13ZX Excision of Right Neck Lymphatic, Percutaneous Approach, Diagnostic (ICD-10-PCS; principal; 2025-06-09)
DX: J15.69 Pneumonia due to other Gram-negative bacteria (principal); A19 Miliary tuberculosis; I31.39 Other pericardial effusion (noninflammatory); I50.23 Acute on chronic systolic (congestive) heart failure; I42.7 Cardiomyopathy due to drug and external agent; I11.0 Hypertensive heart disease with heart failure; J15.9 Unspecified bacterial pneumonia; Z53.29 Procedure and treatment not carried out because of patient's decision for other reasons; Z20.822 Contact with and (suspected) exposure to COVID-19; T50.995A Adverse effect of other drugs, medicaments and biological substances, initial encounter; D86.9 Sarcoidosis, unspecified; E87.6 Hypokalemia; L98.9 Disorder of the skin and subcutaneous tissue, unspecified; R91.1 Solitary pulmonary nodule; E66.9 Obesity, unspecified; F17.210 Nicotine dependence, cigarettes, uncomplicated; R59.0 Localized enlarged lymph nodes; Z98.891 History of uterine scar from previous surgery; Z90.49 Acquired absence of other specified parts of digestive tract; Z82.49 Family history of ischemic heart disease and other diseases of the circulatory system; Z59.00 Homelessness unspecified; Z68.30 Body mass index [BMI] 30.0-30.9, adult; Y92.89 Other specified places as the place of occurrence of the external cause
CPT/HCPCS: 36415; 38505; 71046; 71275; 76536; 76942; 80048; 80053; 80076; 81001; 81025; 82164; 83605; 83735; 83880; 84484; 84702; 85025; 85379; 85610; 85652; 85730; 86038; 86141; 86431; 86635; 86703; 86803; 87040; 87070; 87077; 87081; 87186; 87205; 87340; 87426; 87804; 93005; 93306; 93970; 94640; 96374; 97163; 99291; G0378; J2405; J2543; Q0162